=== PATIENT | female | born 1960 | race Hispanic/Latino ===

== ENCOUNTER 2018-10-03 23:26 | Emergency (ER) | payer BC, SELFPAY ==
--- OUTSIDE RECORDS SUMMARY | 2018-10-03 23:31 | XMS REPORT | Clinical Summary ---
:1960 Author Organization [facility] Address [address] [place] [address] Care Team Providers Name Role Phone Asked, No Pcp Primary Care Provider Unavailable Allergies Active Allergy Reactions Severity Noted Date Comments Penicillins 11/27/2017 Increases my blood pressure Medications Medication Sig Dispensed Refills Start Date End Date Status clindamycin TAKE ONE CAPSULE 0 11/15/2017 Active (CLEOCIN) 300 MG BY MOUTH 3 TIMES capsule A DAY FOR 10 DAYS doxycycline TAKE 1 TABLET BY 0 10/28/2017 Active (VIBRA-TABS) 100 MG MOUTH TWICE A DAY tablet TAKE WITH FOOD SYNTHROID 88 mcg Take 88 mcg by 3 11/23/2017 Active tablet mouth daily. amitriptyline Take 50 mg by 3 11/23/2017 Active (ELAVIL) 50 MG mouth daily. tablet ALPRAZolam (XANAX) Take 0.5 mg by 0 10/28/2017 Active 0.5 MG tablet mouth nightly as needed. baclofen (LIORESAL) TAKE 1 TABLET BY 1 10/04/2017 Active 10 MG tablet MOUTH EVERY 8 HOURS NEEDED FOR SPASMS glimepiride (AMARYL) Take 4 mg by 3 11/23/2017 Active 4 MG tablet mouth daily. metFORMIN XR TAKE 2 TABLET BY 3 11/23/2017 Active (GLUCOPHAGE-XR) 500 MOUTH TWICE A DAY mg 24 hr tablet lisinopril-hydrochlo Take 1 tablet by 3 11/23/2017 Active rothiazide mouth daily. (PRINZIDE,ZESTORETIC ) 20-25 mg per tablet hydromorPHONE TAKE 1 TABLET BY 0 11/05/2017 Active (DILAUDID) 8 MG MOUTH EVERY 4 tablet HOURS NEEDED FOR PAIN MAX5/DAY VITAMIN D2 50,000 TAKE BY MOUTH 1 4 09/20/2017 Active unit capsule CAPSULE ONCE A WEEK ONETOUCH ULTRA TEST USE 1 STRIP 2 09/21/2017 Active strip test strips DIRECTED ONCE A DAY ONETOUCH ULTRASOFT USE 1 LANCET TO 3 09/21/2017 Active lancets SKIN ONCE A DAY DIRECTED WITH GLUCOMETER atorvastatin Take 80 mg by 0 Active (LIPITOR) 80 MG mouth daily. tablet diazePAM (VALIUM) 5 Take 5 mg by 0 Active MG tablet mouth every 6 (six) hours as needed for anxiety. sitaGLIPtin Take 100 mg by 0 Active (JANUVIA) 100 MG mouth daily. tablet predniSONE Take 1 tablet (20 5 tablet 0 11/28/2017 12/03/2017 (DELTASONE) 20 mg mg total) by tablet mouth daily for 5 days. ibuprofen Take 1 tablet 30 tablet 0 11/28/2017 12/28/2017 (ADVIL,MOTRIN) 600 (600 mg total) by MG tablet mouth every 8 (eight) hours as needed for mild pain for up to 30 days. Active Problems Not on file Encounters Date Type Specialty Care Team Description 11/27/2017 - Emergency Emergency Medicine Maxime Sifuentes Tenosynovitis ( Primary Dx); 11/28/2017 MD Tavo Thrombocytopenia; Chronic hypertension; Dyslipidemia; Hypothyroidism, unspecified type; Cirrhosis of liver without ascites, unspecified hepatic cirrhosis type; Type 2 diabetes mellitus with other specified complication, without long-term current use of insulin; Tobacco abuse after 10/02/2017 Social History Tobacco Use Types Packs/Day Years Used Date Current Every Day Smoker 1 Alcohol Use Drinks/Week oz/Week Comments No Sex Assigned at Date Recorded Not on file Job Start Date Occupation Industry Not on file Not on file Not on file Travel History Travel Start Travel End No recent travel history available. Last Filed Vital Signs Vital Sign Reading Time Taken Blood Pressure 135/61 11/28/2017 12:45 AM CDT Pulse 68 11/28/2017 12:45 AM CDT Temperature 36.8 C (98.2 F) 11/28/2017 12:45 AM CDT Respiratory Rate 16 11/28/2017 12:45 AM CDT Oxygen Saturation 97% 11/28/2017 12:45 AM CDT Inhaled Oxygen Concentration - - Weight - - Height - - Body Mass Index - - Plan of Treatment Health Maintenance Due Date Last Done Comments DIABETIC RETINAL EYE EXAM 1960 DIABETIC FOOT EXAM 1968 URINE MICROALBUMIN 1968 CERVICAL CANCER SCREENING 11/14/1979 BREAST CANCER SCREENING 2008 COLON CANCER SCREENING 2008 SHINGLES VACCINES (#1) 2008 INFLUENZA VACCINE 02/16/2018 Procedures Procedure Name Priority Date/Time Associated Diagnosis Comments HC COMPLETE BLD STAT 11/28/2017 12:44 AM Results for this COUNT W/AUTO DIFF CDT procedure are in the results section. after 10/02/2017 Results CBC with platelet and differential (11/28/2017 12:44 AM CDT) WBC 8.33 4.50 - 11.00 k/uL [facility] DEPARTMENT OF PATHOLOGY AND GENOMIC MEDICINE RBC 4.28 4.20 - 5.50 m/uL [facility] DEPARTMENT OF PATHOLOGY AND GENOMIC MEDICINE HGB 13.8 12.0 - 16.0 g/dL [facility] DEPARTMENT OF PATHOLOGY AND GENOMIC MEDICINE HCT 40.1 37.0 - 47.0 % [facility] DEPARTMENT OF PATHOLOGY AND GENOMIC MEDICINE MCV 93.7 82.0 - 100.0 fL [facility] DEPARTMENT OF PATHOLOGY AND GENOMIC MEDICINE MCH 32.2 27.0 - 34.0 pg [facility] DEPARTMENT OF PATHOLOGY AND GENOMIC MEDICINE MCHC 34.4 31.0 - 37.0 g/dL [facility] DEPARTMENT OF PATHOLOGY AND GENOMIC MEDICINE RDW - SD 42.4 37.0 - 55.0 fL [facility] DEPARTMENT OF PATHOLOGY AND GENOMIC MEDICINE MPV 10.9 8.8 - 13.2 fL [facility] DEPARTMENT OF PATHOLOGY AND GENOMIC MEDICINE Platelet count 89 (L) 150 - 400 k/uL [facility] DEPARTMENT OF PATHOLOGY AND GENOMIC MEDICINE Nucleated RBC 0.00 /100 WBC [facility] DEPARTMENT OF PATHOLOGY AND GENOMIC MEDICINE Neutrophils 36.5 (L) 39.0 - 69.0 % [facility] DEPARTMENT OF PATHOLOGY AND GENOMIC MEDICINE Lymphocytes 55.5 (H) 25.0 - 45.0 % [facility] DEPARTMENT OF PATHOLOGY AND GENOMIC MEDICINE Monocytes 5.2 0.0 - 10.0 % [facility] DEPARTMENT OF PATHOLOGY AND GENOMIC MEDICINE Eosinophils 2.3 0.0 - 5.0 % [facility] DEPARTMENT OF PATHOLOGY AND GENOMIC MEDICINE Basophils 0.4 0.0 - 1.0 % [facility] DEPARTMENT OF PATHOLOGY AND GENOMIC MEDICINE Immature granulocytes 0.1Comment: 0.0 - 1.0 % [facility] DEPARTMENT OF "Immature PATHOLOGY AND GENOMIC granulocytes" MEDICINE (promyelocytes, myelocytes, metamyelocytes) Specimen Blood Performing Organization Address City/State/Zipcode Phone Number [facility] DEPARTMENT OF PATHOLOGY AND [address] [place] [address] GENOMIC MEDICINE after 10/02/2017 Insurance Payer Benefit Plan / Group Subscriber ID Type Phone Address [facility] xxxxxxxxxxxx PPO Advance Directives Patient has advance care planning documents on file. For more information, please contact:Favian Soto[address] [place] [address]
--- OUTSIDE RECORDS SUMMARY | 2018-10-03 23:32 | XMS REPORT | Continuity of Care Document ---
:1960 Author Organization Interface Problems Problem Status Onset Classification Date Comments Source Date Reported LUMBAR RADICULOPATHY Active [address] [id number] Active [facility] [place] HISTORY OF ARTHRITIS Active Condition [facility] 015 5 [facility] HISTORY OF CHRONIC Active Condition [facility] SINUSITIS 015 5 Neuro HISTORY OF CIRRHOSIS Active Condition [facility] 015 5 [facility] HISTORY OF DEPRESSION Active Condition [facility] 015 5 [facility] HISTORY OF DEMENTIA Active Condition [facility] 015 5 Neuro HISTORY OF TYPE II Active Condition [facility] DIABETES MELLITUS 015 5 Neuro HISTORY OF Active Condition [facility] HYPERTENSION 015 5 Neuro HISTORY OF Active Condition [facility] HYPERTHYROIDISM 015 5 Neuro HISTORY OF MIGRAINE Active Condition [facility] 015 5 Neuro HISTORY OF PANIC Active Condition [facility] DISORDER 015 5 [facility] LOW BACK PAIN Active Condition [facility] 015 5 [facility] LUMBAR HNP Active Condition [facility] 015 5 [facility] LUMBAR STENOSIS Active Condition [facility] 015 5 [facility] LUMBAR RADICULOPATHY Active Condition [facility] 015 5 [facility] LUMBAR 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 Lumbar Active Problem Data [facility] radiculopathy<sup>4</s 015 5 migrated Medical up> from [facility] on 03/12/15. Spinal stenosis of Active Problem Data [facility] lumbar 015 5 migrated Medical region<sup>5</sup> from [facility] on 03/12/15. Calcaneal Active Problem LEFT [facility] spur<sup>1</sup> [address] [place] [address],[facility] Depression Active Problem [address],[facility] Disorder of lumbar Active Problem HERNIATED [facility] disc<sup>2</sup> [address] [place] [address],[facility] DM - Diabetes mellitus Active Problem [address],[facility] Fatty liver Active Problem [address],[facility] Fibromyalgia Active Problem [address],[facility] Hypercholesterolemia Active Problem [address],[facility] Hypertension Active Problem [address],[facility] Hypothyroidism Active Problem [address],[facility] Osteoarthritis Active Problem [address],[facility] Travel Resolved Problem HAS NOT [facility] abroad<sup>6</sup> 5 TRAVELLED Medical OUTSIDE OF [facility] IN THE LAST 30 DAYS Travel Resolved Problem 3HAS NOT abroad<sup>3</sup> 5 TRAVELLED [facility] OUTSIDE OF [facility] IN THE LAST 30 DAYS LUMBAR DISC Active DISPLACEMENT [facility] Medications Medication Details Route Status Patient Ordering Order Source Instructions Provider Date multivitamin 1 tab, Route: No Longer PO, Dosing Active 2014 [facility] Weight 70.909, kg, Daily, Start date: 01/22/15 9:00:00, Duration: 30 day, Stop date: 02/20/15 9:00:00 glimepiride 4 mg, 2 tab, Inactive Route: PO, 2014 [facility] Drug form: TAB, Breakfast, Dosing Weight 70.909, kg, Start date: 01/22/15 8:00:00, Duration: 30 day, Stop date: 02/20/15 8:00:00Notes: (Same as: Amaryl) heparin 5,000 unit, 1 Inactive mL, Route: 2014 [facility] SUB-Q, Drug form: INJ, Q12H, Dosing Weight 70.909, kg, Start date: 01/22/15 6:00:00, Duration: 30 day, Stop date: 02/20/15 18:00:00Notes: porcine heparin Insulin, Aspart, 2 unit, 0.02 No Longer Human mL, Route: Active 2014 [facility] SUB-Q, Drug form: SOLN, TID-Before Meals, Dosing Weight 70.909, kg, PRN Blood Glucose Results, Start date: 01/21/15 23:21:00, Duration: 30 day, Stop date: 02/20/15 23:20:00Notes: Roll in palms of hands gently; Do not shake vigorously. (Same as: NovoLOG) "single patient use only" Stable for 28 days at room temperature. Expires in days from Date Dextrose 50% 25 gm, 50 mL, No Longer Syringe Route: IVP, Active 2014 [facility] Drug Form: INJ, Dosing Weight 70.909, kg, PRN, PRN Blood Glucose Results, Start date: 01/21/15 23:21:00, Duration: 30 day, Stop date: 02/20/15 23:20:00 Glucagon 1 mg, Route: No Longer IM, Drug form: Active 2014 [facility] PDR/INJ, PRN, Dosing Weight 70.909, kg, PRN Blood Glucose Results, Start date: 01/21/15 23:21:00, Duration: 30 day, Stop date: 02/20/15 23:20:00 Glucagon 1 mg, Route: Inactive IM, Drug form: 2014 [facility] PDR/INJ, PRN, Dosing Weight 70.909, kg, PRN Blood Glucose Results, Start date: 01/21/15 23:17:00, Duration: 30 day, Stop date: 02/20/15 23:16:00 Dextrose 50% 12.5 gm, 25 Inactive Syringe mL, Route: 2014 [facility] IVP, Drug Form: INJ, Dosing Weight 70.909, kg, PRN, PRN Blood Glucose Results, Start date: 01/21/15 23:17:00, Duration: 30 day, Stop date: 02/20/15 23:16:00 Insulin, Aspart, 4 unit, 0.04 No Longer Human mL, Route: Active 2014 [facility] SUB-Q, Drug form: SOLN, Bedtime, Dosing Weight 70.909, kg, PRN Blood Glucose Results, Start date: 01/21/15 23:17:00, Duration: 30 day, Stop date: 02/20/15 23:16:00Notes: Roll in palms of hands gently; Do not shake vigorously. (Same as: NovoLOG) "single patient use only" Stable for 28 days at room temperature. Expires in days from Date Amitriptyline 25 mg, 1 tab, No Longer Route: PO, Active 2014 [facility] Drug form: TAB, Bedtime, Dosing Weight 70.909, kg, Start date: 01/21/15 21:00:00, Duration: 30 day, Stop date: 02/19/15 21:00:00Notes: (Same as: Elavil) atorvastatin 80 mg, 2 tab, No Longer Route: PO, Active 2014 [facility] Drug form: TAB, Bedtime, Dosing Weight 70.909, kg, Start date: 01/21/15 21:00:00, Duration: 30 day, Stop date: 02/19/15 21:00:00Notes: (Same as: Lipitor) Metformin 1,000 mg, 2 No Longer hydrochloride 500 tab, Route: Active 2014 [place] [facility] Oral Tablet PO, Drug form: TAB, BID-Meals, Dosing Weight 70.909, kg, Start date: 01/21/15 17:00:00, Duration: 30 day, Stop date: 02/20/15 8:00:00Notes: (Same as: Glucophage) Take with meal Docusate 100 mg, 1 cap, No Longer Route: PO, Active 2014 [facility] Drug form: CAP, BID, Dosing Weight 70.909, kg, Start date: 01/21/15 17:00:00, Duration: 30 day, Stop date: 02/20/15 9:00:00Notes: (Same as: Colace) (Do Not Crush) pantoprazole 40 mg, 1 tab, No Longer Route: PO, Active 2014 [facility] Drug form: ECTAB, Before Dinner, Dosing Weight 70.909, kg, Start date: 01/21/15 16:30:00, Duration: 30 day, Stop date: 02/19/15 16:30:00Notes: Tablet should not be chewed or crushed. (Same as: Protonix) ceFAZolin (SCIP) + 1 gm, Route: No Longer Sodium Chloride IVPB, Q8H, Active 2014 [facility] 0.9% IV 100 mL Dosing Weight 70.909, kg, Start date: 01/21/15 16:00:00, Duration: 2 doses or times, Stop date: 01/22/15 0:00:00Notes: (Same As: Molly Crocker) MEDICATION WASTE Product Size: 1000 mg Product Wasted: ___ mg Januvia 100 mg, 1 tab, No Longer Route: PO, 2014 [facility] Drug form: TAB, Daily, Dosing Weight 70.909, kg, Start date: 01/21/15 12:00:00, Duration: 30 day, Stop date: 02/20/15 9:00:00Notes: (Same as: Januvia) potassium chloride 10 mEq, 1 tab, No Longer Route: PO, Active 2014 [facility] Drug form: ERTAB, Daily, Dosing Weight 70.909, kg, Start date: 01/21/15 12:00:00, Duration: 30 day, Stop date: 02/20/15 9:00:00Notes: (Same as: K-Dur 10) "Do Not Crush" With food and full glass of water Hydrochlorothiazid 2 tab, Route: No Longer e 25 MG / PO, Drug Form: Active 2014 [facility] Lisinopril 20 MG TAB, Dosing Oral Tablet Weight 70.909, kg, Daily, Start date: 01/21/15 12:00:00, Duration: 30 day, Stop date: 02/20/15 9:00:00Notes: Non-formulary drug. (lisinopril-hy drochlorothiaz lori 10-12.5 mg TAB) (Same as: Prinzide, Zestoretic) multivitamin with 1 tab, Route: No Longer minerals PO, Drug Form: Active 2014 [facility] TAB, Daily, Start date: 01/21/15 12:00:00, Duration: 30 day, Stop date: 02/20/15 9:00:00Notes: Give with food. (Same As: Stress 600 with Zinc) Zofran 4 mg, 2 mL, No Longer Route: IVP, Active 2014 [facility] Drug form: INJ, Q4H, Dosing Weight 70.909, kg, PRN Other -See Comment, If N/V refractory to first dose of Zofran IVP, patient may receive an additional 4mg IVP dose of Zofran per Dr. Gurrola, Start date: 01/21/15 11:27:00, Durati...Notes : (Same as: Zofran) MEDICATION WASTE Product Size: 4 mg Product Wasted: ___ mg Synthroid 88 microgram, No Longer 1 tab, Route: Active 2014 [facility] PO, Drug form: TAB, Daily, Dosing Weight 70.909, kg, Start date: 01/21/15 11:00:00, Duration: 30 day, Stop date: 02/20/15 9:00:00Notes: Take 1 hour before or 2 hours after meal; Enteral feeds may interefere with the absorption of this medication. (Same as:Synthroid) Insulin, Aspart, 1 unit, 0.01 Inactive Human mL, Route: 2014 [facility] SUB-Q, Drug form: SOLN, TID-Before Meals, Dosing Weight 70.909, kg, PRN Blood Glucose Results, Start date: 01/21/15 10:54:00, Duration: 30 day, Stop date: 02/20/15 10:53:00Notes: Roll in palms of hands gently; Do not shake vigorously. (Same as: NovoLOG) "single patient use only" Stable for 28 days at room temperature. Expires in days from Date Glucagon 1 mg, Route: Inactive IM, Drug form: 2014 [facility] PDR/INJ, PRN, Dosing Weight 70.909, kg, PRN Blood Glucose Results, Start date: 01/21/15 10:54:00, Duration: 30 day, Stop date: 02/20/15 10:53:00 Dextrose 50% 12.5 gm, 25 Inactive MH Syringe mL, Route: 2014 [facility] IVP, Drug Form: INJ, Dosing Weight 70.909, kg, PRN, PRN Blood Glucose Results, Start date: 01/21/15 10:54:00, Duration: 30 day, Stop date: 02/20/15 10:53:00 Docusate Sodium 100 mg=1 cap, Active MH 100 MG Oral PO, BID, # 90 2014 [facility] Capsule [Colace] cap, 1 Refill(s) Diazepam 5 MG Oral 1-2, PO, Q4H, Active Tablet [Valium] PRN as needed 2014 [facility] for muscle spasms, # 30 tab, 4 Refill(s) tramadol 50 mg=1 tab, Active hydrochloride 50 PO, Q6H, PRN 2014 [facility] MG Oral Tablet as needed for [Ultram] pain, # 30 tab, 0 Refill(s) Dilaudid 0.5 mg, 0.5 Inactive MH mL, Route: IV, 2014 [facility] Drug form: INJ, Q5Min, Dosing Weight 70.909, kg, PRN Pain Score 7-10, Start date: 01/21/15 10:47:00, Duration: 4 doses or times, Stop date: 01/21/15 20:00:00Notes: Same as: Dilaudid Phenergan 12.5 mg, 0.5 Inactive MH mL, Route: IM, 2014 [facility] Drug form: INJ, ONCE, Dosing Weight 70.909, kg, PRN Nausea, Start date: 01/21/15 10:47:00Notes: Do not give IV push. (Same as: Phenergan) Meperidine 12.5 mg, 0.5 Inactive 01/21/ MH mL, Route: 2014 [facility] IVP, Drug form: INJ, Q5Min, Dosing Weight 70.909, kg, PRN Pain Score 4-6, Start date: 01/21/15 10:47:00, Duration: 4 doses or times, Stop date: 01/21/15 20:00:00Notes: (Same as: Demerol) "Use Precaution in Elderly, Seizure disorders, and Renal impairment" Acetaminophen 1,000 mg, 100 Inactive mL, Route: 2014 [facility] IVPB, Drug form: INJ, ONCE, Dosing Weight 70.909, kg, PRN Pain Score 1-3, Start date: 01/21/15 10:47:00, Duration: 1 doses or times, Stop date: Limited # of timesNotes: Infuse over 15 minutes Do not exceed 4gm/day of acetaminophen MEDICATION WASTE Product Size: 1000 mg Product Wasted: ___ mg Metoprolol 1 mg, 1 mL, Inactive Route: IVP2014 [facility] Drug form: INJ, Q5Min, Dosing Weight 70.909, kg, PRN Other -See Comment, Start date: 01/21/15 10:47:00, Duration: 5 doses or times, Stop date: 01/21/15 20:00:00Notes: (Same as: Lopressor) Push over 2 minutes Labetalol 10 mg, 2 mL, Inactive Route: IVP2014 [facility] Drug form: INJ, Q5Min, Dosing Weight 70.909, kg, PRN Elevated BP, Start date: 01/21/15 10:47:00, Duration: 5 doses or times, Stop date: 01/21/15 20:00:00Notes: (Same as: Normodyne, Trandate) Push over 2 minutes Give bolus over 2-3 minutes. Ketorolac 30 mg, 1 mL, Inactive Route: IVP2014 [facility] Drug form: INJ, ONCE, Dosing Weight 70.909, kg, Start date: 01/21/15 10:47:00, Duration: 1 doses or times, Stop date: 01/21/15 10:47:00Notes: (Same as:Toradol) IV bolus must be given >15 seconds. Give IM administration slowly and deeply into the muscle. Not for use > 4 days MEDICATION WASTE Product Size: 30 mg Product Wasted: ___ mg Hydralazine 10 mg, 0.5 mL, Inactive Route: IVP2014 [facility] Drug form: INJ, Q20Min, Dosing Weight 70.909, kg, PRN Elevated BP, Start date: 01/21/15 10:47:00, Duration: 2 doses or times, Stop date: 01/21/15 20:00:00Notes: (Same as: Apresoline) Push over 5 minutes Ondansetron 4 mg, 2 mL, Inactive Route: IVP2014 [facility] Drug form: INJ, ONCE, Dosing Weight 70.909, kg, PRN Nausea & Vomiting, Start date: 01/21/15 10:47:00Notes: (Same as: Meliton) MEDICATION WASTE Product Size: 4 mg Product Wasted: ___ mg Morphine 2 mg, 1 mL, Inactive Route: IVP2014 [facility] Drug form: INJ, Q5Min, Dosing Weight 70.909, kg, PRN Pain Score 4-6, Start date: 01/21/15 10:47:00, Duration: 5 doses or times, Stop date: Limited # of timesNotes: (Same as:MORPhine Sulfate) Hydromorphone 0.5 mg, 0.5 Inactive mL, Route: 2014 [facility] IVP, Drug form: INJ, Q5Min, Dosing Weight 70.909, kg, PRN Pain Score 7-10, Start date: 01/21/15 10:47:00, Duration: 4 doses or times, Stop date: 01/21/15 20:00:00Notes: Same as: Dilaudid Naloxone 0.04 mg, 0.1 Inactive mL, Route: 2014 [facility] IVP, Drug form: INJ, Q2MIN, Dosing Weight 70.909, kg, PRN Narcotic Reversal, Start date: 01/21/15 10:47:00, Duration: 8 doses or times, Stop date: 01/21/15 20:00:00Notes: Same as Narcan Flumazenil 0.2 mg, 2 mL, Inactive Route: IVP2014 [facility] Drug form: INJ, PRN, Dosing Weight 70.909, kg, PRN Benzodiazepine Reversal, Initial dose, Start date: 01/21/15 10:47:00, Stop date: 01/21/15 20:00:00Notes: (Same as: Romazicon) Diazepam 10 mg, 2 tab, No Longer Route: PO, Active 2014 [facility] Drug form: TAB, Q4H, Dosing Weight 70.909, kg, PRN Other -See Comment, Start date: 01/21/15 10:38:00, Duration: 7 day, Stop date: 01/28/15 10:37:00, severe muscle spasmsNotes: (Same as: Valium) Acetaminophen 650 mg, 2 tab, No Longer Route: PO, Active 2014 [facility] Drug form: TAB, Q4H, Dosing Weight 70.909, kg, PRN Pain 1-3/Temp > 100.4 F, Start date: 01/21/15 10:38:00, Duration: 30 day, Stop date: 02/20/15 10:37:00Notes: Do not exceed 4 gm/day. (Same as: Tylenol) Hydromorphone 4 mg, 2 tab, No Longer Route: PO, Active 2014 [facility] Drug form: TAB, Q4H, Dosing Weight 70.909, kg, PRN Other -See Comment, Start date: 01/21/15 10:38:00, Duration: 3 day, Stop date: 01/24/15 10:37:00Notes: (Same as: Dilaudid) Reglan 10 mg, 1 tab, No Longer Route: PO, Active 2014 [facility] Drug form: TAB, BID, Dosing Weight 70.909, kg, PRN Other -See Comment, Start date: 01/21/15 10:38:00, Duration: 30 day, Stop date: 02/20/15 10:37:00, nausea or vomiting if patient refractory to ondansetronNot es: (Same as: Reglan) Take 30 min before meals Zofran 4 mg, 2 mL, No Longer Route: IVP, Active 2014 [facility] Drug form: INJ, Q4H, Dosing Weight 70.909, kg, PRN Nausea, Start date: 01/21/15 10:38:00, Duration: 30 day, Stop date: 02/20/15 10:37:00Notes: (Same as: Zofran) MEDICATION WASTE Product Size: 4 mg Product Wasted: ___ mg Phenergan 25 mg, 50 mL, No Longer Route: IVP Active 2014 [facility], Drug form: SOLN, Q4H, Dosing Weight 70.909, kg, PRN Nausea & Vomiting, If N/V refractory to Zofran and Reglan,patient may receive Phenergan IVP per Dr. Gurrola, Start date: 01/21/15 10:38:00, Duration: 30 day, Stop date... LR IV 500 mL 500 mL, Rate: No Longer 125 ml/hr, Active 2014 [facility] Infuse over: 4 hr, Route: IV, Dosing Weight 70.909 kg, Total Volume: 500, Start date: 01/21/15 10:38:00, Duration: 30 day, Stop date: 02/20/15 10:37:00 Sodium Chloride 250 mL, Rate: Inactive 0.154 MEQ/ML 25 ml/hr, 2014 [facility] Injectable Infuse over: Solution 10 hr, Route: IV, Dosing Weight 70.909 kg, Total Volume: 250, Start date: 01/21/15 7:50:00, Duration: 1 doses or times, Stop date: 01/21/15 17:49:00 naloxegol 25 MG 25 mg=1 tab, Active Oral Tablet PO, QAM, 0 2014 [facility] [Movantik] Refill(s) Lidocaine 0.1 mL, Route: Inactive Hydrochloride 10 INTRADERM, 2014 [facility] MG/ML Injectable Drug form: Solution INJ, PRE OP, [Xylocaine] Dosing Weight 70.909, kg, Start date: 01/21/15 6:00:00, Duration: 30 day, Stop date: 02/20/15 5:59:00Notes: Preservative free. (Same as: Xylocaine MPF) Lactated Ringers 1,000 mL, No Longer IV 1,000 mL Rate: 100 Active 2014 [facility] ml/hr, Infuse over: 10 hr, Route: IV, Dosing Weight 70.909 kg, Total Volume: 1,000, Start date: 01/21/15 5:31:00, Duration: 30 day, Stop date: 02/20/15 5:30:00 ceFAZolin 2 gm, 50 mL, Inactive Route: IVPB, 2014 [facility] Drug form: INJ, PRE OP, Start date: 01/21/15 5:00:00, Duration: 1 doses or times ULTRAM 50 MG TABS 1 tablet every Active [facility] 6 hours as 2014 [facility] needed for severe pain VALIUM 5 MG TABS one to two Active [facility] tabs PO 2014 [facility] Q4-6hrs prn muscle spasms COLACE 100 MG CAPS Take one Active cher capsule by 2014 [facility] mouth twice a day potassium chloride 10 mEq, PO, Active Daily, 0 2014 [facility] Refill(s) Fish Oil 1,000 mg, PO, No Longer 2 X WEEK, 0 Active 2014 [facility] Refill(s)Speci al Instructions: 2 X WEEK multivitamin 1 tab, PO, Active Daily, 0 2014 [facility] Refill(s) atorvastatin 80 mg 80 mg=1 tab, Active oral tablet PO, Daily, # 2014 [facility] 90 tab, 3 Refill(s) Metformin 1,000 mg=2 Active hydrochloride 500 tab, PO, BID, 2014 [facility] Oral Tablet 0 Refill(s) glimepiride 4 mg 4 mg=1 tab, Active oral tablet PO, Breakfast, 2014 [facility] # 30 tab, 0 Refill(s) sitagliptin 100 MG 100 mg=1 tab, Active Oral Tablet PO, Daily, # 2014 [facility] [Januvia] 30 tab, 0 Refill(s) Vitamin D3 5000 5,000 Active intl units oral IntlUnit=1 2014 [facility] tablet tab, PO, 2 X WEEK, 0 Refill(s)Speci al Instructions: 2 X WEEK Hydrochlorothiazid 1 tab, PO, Active e 25 MG / Daily, # 30 2014 [facility] Lisinopril 20 MG tab, 0 Oral Tablet Refill(s) amitriptyline 25 25 mg=1 tab, Active [facility] mg oral tablet PO, Bedtime, # 2015 [facility] 30 tab, 1 Refill(s) hydromorphone 8 mg 8 mg=1 tab, Active 01/15/ oral tablet PO, Q4H, 0 2014 Refill(s) Levothyroxine 88 microgram=1 Active 01/15/ Sodium 0.088 MG tab, PO, 2014 [facility] Tablet Daily, # 30 [Synthroid] tab, 0 Refill(s) ALPRAZOLam 0.5 mg 0.5 mg=1 tab, No Longer 01/15/ oral tablet, PO, Bedtime, 0 Active 2014 disintegrating Refill(s) ALPRAZOLAM ER 0.5 Active [facility] MG [id number] 2014 [facility] SYNTHROID 100 MCG Active [facility] TABS 2014 [facility] HY[facility]OMORPHONE HCL [facility] TABS 2014 [facility] AMITRIPTYLINE [facility] TABS 2014 [facility] LISINOPRIL-HYDROCH Active [facility] LOROTHIAZIDE 20-25 2014 [facility] TABS VITAMIN D3 5000 Active [facility] UNIT TABS 2014 [facility] JANUVIA 100 MG Active [facility] TABS 2015 [facility]IME[facility]IRIDE 4 [facility]S [facility] METFORMIN HCL ER Active 500 MG [id number] 2014 [facility] ATORVASTATIN Active [facility] CALCIUM 80 MG TABS 2015 [facility] AMITRIPTYLINE HCL [facility] TABS 2014 [facility] LISINOPRIL-HYDROCH Active [facility] LOROTHIAZIDE 20-25 2014 [facility] MG TABS JANUVIA 100 [facility] 4 [facility] METFORMIN HCL ER Active [facility] 500 MG [id number] 2014 [facility] Allergies, Adverse Reactions, Alerts Substance Category Reaction Severity Reaction Status Date Comments Source type Reported PREDNISONE Drug PREDNISONE [facility] allergy 5 Neuro predniSONE< Assertion Drug Active Data [place] sup>1</sup> allergy 5 migrated Medical from [facility] on 03/11/15. Originally documented as PREDNISONE. predniSONE Assertion Drug Active allergy [place] Immunizations Immunization Date Given Site Status Last Updated Comments Source Results Order Name Results Value Reference Date Interpretation Comments Source Range CHEM PANEL eGFR 83 05/01 Result Comment: The eGFR is calculated using the CKD-EPI formula. In most young, healthy individuals the eGFR will be >90 mL/ min/1.73m2. The eGFR declines with age. An eGFR of 60-89 may be normal in [facility] mL/min/1. some populations, particularly the elderly, for whom the CKD-EPI formula has not been extensively validated. Use of the eGFR is not recommended in the following populations: [place] [address] [facility] Individuals with unstable creatinine concentrations, including patients and those with serious co-morbid conditions. Patients with extremes in muscle mass or diet. The data above are obtained from the National Kidney Disease Education Program (NKDEP) which additionally recommends that when the eGFR is used in patients with extremes of body mass index for purposes of drug dosing, the eGFR should be multiplied by the estimated BMI. CHEM PANEL POC 0.8 mg/dL 0.5 - 1.4 05/01 [facility] Creatinine /2014 [facility] Spine Spine lumbar EXAM: MRI LUMBAR SPINE WITHOUT AND WITH CONTRAST 05/01 - [facility] lumbar w/wo /2014 - [facility] w/ contrast MRI This report was dictated by a Dip Painter/ Fellow. I have personally reviewed the images as Center contrast well as the Resident's interpretation and agree with the findings. MRI DATE: May 01, 2015 06:54:00 PM Read by: Jose R Reynaga MD Resident: Jose R Reynaga MD Dictated Date/time: 05/02/15 09:03 Electronically Signed by: Martínez Lund MD 05/02/15 21:04 FINAL REPORT INDICATION: Lumbar radiculopathy COMPARISON: None available TECHNIQUE: Multiplanar noncontrast images are obtained. Contrast enhanced images are obtained after delivery of 13 mL of multihance gadolinium intravenous contrast. DISCUSSION: Normal lumbar segmentation is assumed with the lowest fully formed intervertebral disc space labeled as L5-S1 for the purpose of this examination. The conus medullaris terminates at the L1-L2 level. It has a normal contour and normal signal characteristics. No intradural pathology is identified. Alignment is normal. Vertebral height and signal characteristics are unremarkable. Disc spaces, spinal canal and neural foramina are as follows: T12-L1: Normal disc signal with preservation of disc height. No evidence of spinal canal stenosis. No significant facet hypertrophy. No significant neural foramina stenosis. L1-L2: Normal disc signal with preservation of disc height. No evidence of spinal canal stenosis. No significant facet hypertrophy. No significant neural foramina stenosis. L2-L3: Normal disc signal with minimal loss of disc height. There is mild diffuse annular bulge. No evidence of spinal canal stenosis. No significant facet hypertrophy. No significant neural foramina stenosis. L3-L4: Normal disc signal with minimal loss of disc height. Mild diffuse annular bulge is noted. No evidence of spinal canal stenosis. Ligamentum flavum and facet hypertrophy are present on the right wh ich encroach slightly upon the right neural foramen. L4-L5: Degenerative disc desiccation with minimal loss of disc height. Mild diffuse annular bulge is noted. No evidence of spinal canal stenosis. Ligamentum flavum and facet hypertrophy are present bila terally which encroach slightly upon the neural foramina. L5-S1: There is a 2 mm retrolisthesis of L5 on S1. There is a leftward asymmetric diffuse annular bulge encroaching upon the left neural foraminal and far lateral zone and encroachment upon the right ne ural foramen. Degenerative disc desiccation with significant loss of disc height. No evidence of spinal canal stenosis. Ligamentum flavum and facet hypertrophy are present on the right which encroach slightly upon the right neural foramen. T2 hyperintense postsurgical change related to a left L5 laminectomy and L5 left anterior anterior endplate edema are also noted. The incidental note of a right renal cyst is made. IMPRESSION: 1. Mild grade 1 retrolisthesis of L5 on S1 with leftward asymmetric diffuse annular bulge with resultant stenosis of the left neural foraminal and far lateral zones and mild compression of the left L5 nerve root. 2. Mild degenerative disc disease and facet arthropathy in the mid to upper lumbar spine without neural foraminal or spinal canal stenosis. 3. L5 left partial laminectomy postsurgical change. BLOOD BANK Platelet Product available 01/16 RESULTS product [facility] (01/16/15 8:58 AM) BLOOD BANK Antibody Negative 01/15 RESULTS Scrn [facility] (01/15/15 3:22 PM) BLOOD BANK ABO/Rh A POS 01/15 RESULTS /2014 ELECTROLYT AGAP 9.7 meq/L 10.0 - 01/15 ES 20.0 [facility] ELECTROLYT eGFR 83 01/15 1Result Comment: The eGFR is calculated using the CKD-EPI formula. In most young, healthy individuals the eGFR will be >90 mL/ min/1.73m2. The eGFR declines with age. An eGFR of 60-89 may be normal in [facility] mL/min/1. some populations, particularly the elderly, for whom the CKD-EPI formula has not been extensively validated. Use of the eGFR is not recommended in the following populations: [facility] 3m2 Individuals with unstable creatinine concentrations, including patients and those with serious co-morbid conditions. Patients with extremes in muscle mass or diet. The data above are obtained from the National Kidney Disease Education Program (NKDEP) which additionally recommends that when the eGFR is used in patients with extremes of body mass index for purposes of drug dosing, the eGFR should be multiplied by the estimated BMI. ELECTROLYT Chloride Lvl 105 meq/L 95 - 109 01/15 [facility] ELECTROLYT Potassium 3.7 meq/L 3.5 - 5.1 01/15 [facility] Lvl [facility] ELECTROLYT Sodium Lvl 142 meq/L 135 - 145 01/15 [facility] ELECTROLYT Creatinine 0.8 mg/dL 0.5 - 1.4 01/15 [facility] Lvl [facility] ELECTROLYT Glucose Lvl 172 mg/dL 70 - 99 01/15 2Interpretive Data: Adult reference range values reflect the clinical guidelines of the [place] [employer]. [facility] ELECTROLYT BUN 9 mg/dL 7 - 22 01/15 [facility] ELECTROLYT Calcium Lvl 9.0 mg/dL 8.5 - 10.5 01/15 [facility] ELECTROLYT CO2 31 meq/L 24 - 32 01/15 [facility] HEMATOLOGY INR 1.06 0.85 - 01/15 3Interpretive Data: RECOMMENDED RANGES FOR PROTIME INR: . 2.0-3.0 for most medical and surgical thromboembolic states. [facility] 2.5-3.5 for artificial heart valves and recurrent embolism. INR SHOULD BE USED ONLY FOR PATIENTS ON STABLE ANTICOAGULANT THERAPY. HEMATOLOGY PT 13.8 s 12.0 - 01/15 14.7 [facility] HEMATOLOGY PTT 32.8 s 22.9 - 01/15 4Interpretive 35.8 /2014 Data: Heparin [facility] Therapeutic Range: 57 - 92 Seconds HEMATOLOGY MPV 9.7 fL 7.4 - 10.4 01/15 /2014 [facility] HEMATOLOGY Platelet 112 K/CMM 133 - 450 01/15 /2014 [facility] HEMATOLOGY MCHC 33.4 g/dL 32.0 - 01/15 MH 36.0 /2014 [facility] HEMATOLOGY RDW 13.1 % 11.5 - 01/15 MH 14.5 /2014 [facility] HEMATOLOGY MCH 31.7 pg 27.0 - 01/15 MH 31.0 /2014 [facility] HEMATOLOGY RBC 4.33 M/CMM 4.20 - 01/15 MH 5.40 /2014 [facility] HEMATOLOGY WBC 10.0 K/CMM 3.7 - 10.4 01/15 [facility] HEMATOLOGY Hgb 13.7 g/dL 12.0 - 01/15 MH 16.0 /2014 [facility] HEMATOLOGY Hct 41.2 % 36.0 - 01/15 MH 48.0 /2014 [facility] HEMATOLOGY MCV 95.1 fL 80.0 - 01/15 MH 98.0 /2014 [facility] HEMATOLOGY Monocytes 4.7 % 2.0 - 12.0 01/15 [facility] HEMATOLOGY Eosinophils 2.9 % 0.0 - 4.0 01/15 /2014 [facility] HEMATOLOGY Lymphocytes 57.6 % 20.0 - 01/15 MH 40.0 /2014 [facility] HEMATOLOGY Monocytes # 0.5 K/CMM 0.0 - 0.8 01/15 [facility] HEMATOLOGY Eosinophils 0.3 K/CMM 0.0 - 0.5 01/15 MH # /2014 [facility] HEMATOLOGY Segs 34.6 % 45.0 - 01/15 MH 75.0 /2014 [facility] HEMATOLOGY RBC Morph Normal 01/15 [facility] (01/15/15 3:22 PM) HEMATOLOGY Plt Morph Normal 01/15 [facility] (01/15/15 3:22 PM) HEMATOLOGY Lymphocytes 5.8 K/CMM 1.0 - 5.5 01/15 MH # /2014 [facility] HEMATOLOGY Basophils 0.2 % 0.0 - 1.0 01/15 [facility] HEMATOLOGY Segs-Bands # 3.5 K/CMM 1.5 - 8.1 01/15 [facility] URINE AND UA Sq Epi Occasional Few /LPF 01/15 MH STOOL /LPF /2014 [facility] URINE AND UA RBC 0-2 /HPF 0 - 2 01/15 [facility] URINE AND UA WBC 0-2 /HPF None Seen 01/15 [facility] /HPF [facility] URINE AND UA 4.0 EU/dL 0.1 - 1.0 01/15 [facility] Urobilinogen /2014 [place] URINE AND UA Leuk Est Negative Negative 01/15 STOOL [facility] (01/15/15 3:22 PM) URINE AND Micro? Performed 01/15 STOOL [facility] (01/15/15 3:22 PM) URINE AND UA Blood Small Negative 01/15 STOOL [facility] *ABN* (01/15/15 3:22 PM) URINE AND UA Nitrite Negative Negative 01/15 STOOL [facility] (01/15/15 3:22 PM) URINE AND UA Color Yellow Yellow 01/15 [facility] *NA* (01/15/15 3:22 PM) URINE AND UA pH 6.0 5.0 - 8.0 01/15 [facility] URINE AND UA Spec Grav 1.025 <=1.030 01/15 [facility] URINE AND UA Turbidity Clear Clear 01/15 STOOL [facility] (01/15/15 3:22 PM) URINE AND UA Glucose >=1000 Negative 01/15 [facility] mg/dL mg/dL [facility] URINE AND UA Protein Negative Negative 01/15 [facility] (01/15/15 3:22 PM) URINE AND UA Bili Negative Negative 01/15 [facility] *NA* (01/15/15 3:22 PM) URINE AND UA Ketones Negative Negative 01/15 [facility] *NA* (01/15/15 3:22 PM) Vital Signs Vital Sign Value Date Comments Source Weight 153 02/26/2015 [facility] Height 65 02/26/2015 [facility] Temperature Oral (F) 97.9 F 02/26/2015 [facility] Heart Rate 88 02/26/2015 [facility] Systolic (mm Hg) 115 02/26/2015 [facility] Diastolic (mm Hg) 87 02/26/2015 [facility] Weight 157 02/05/2015 [facility] Height 65.50 02/05/2015 [facility] Temperature Oral (F) 98.9 F 02/05/2015 [facility] Heart Rate 68 02/05/2015 [facility] Systolic (mm Hg) 121 02/05/2015 [facility] Diastolic (mm Hg) 68 02/05/2015 [facility] Systolic (mm Hg) 109 01/22/2015 [facility] Diastolic (mm Hg) 55 01/22/2015 [facility] Heart Rate 76 01/22/2015 [facility] Respitory Rate 17 01/22/2015 [facility] Temperature Oral (F) 98.0 F 01/22/2015 [facility] Systolic (mm Hg) 123 01/22/2015 [facility] Diastolic (mm Hg) 67 01/22/2015 [facility] Respitory Rate 18 01/22/2015 [facility] Heart Rate 65 01/22/2015 [facility] Temperature Oral (F) 97.7 F 01/22/2015 [facility] Respitory Rate 15 01/22/2015 [facility] Systolic (mm Hg) 114 01/22/2015 [facility] Diastolic (mm Hg) 63 01/22/2015 [facility] Heart Rate 67 01/22/2015 [facility] Temperature Oral (F) 98.4 F 01/22/2015 [facility] BMI Calculated 25.23 01/15/2015 [facility] Weight 70.909 01/15/2015 [facility] Height 167.64 cm 01/15/2015 [facility] Weight 156.5 12/13/2014 [facility] Height 65.50 12/13/2014 [facility] Temperature Oral (F) 97.5 F 12/13/2014 [facility] Heart Rate 67 12/13/2014 [facility] Systolic (mm Hg) 123 12/13/2014 [facility] Diastolic (mm Hg) 65 12/13/2014 [facility] Encounters Location Location Encounter Encounter Reason Attending ADM DC Status Source Details Type Number For Provider Date Date Visit [id number] [facility] Izabela BEN[facility] /2014 [facility] Bedded [id number] Ang 01/21 01/22 [facility] Outpatient Izabela Morales /2014 [facility] [id number] Ang02/[facility] BENITE[facility] [place] [facility] [id number] Ang 02/26 02/26 [facility] 1330 Izabela BENITEZ [place] [id number] ANG04/24 [facility] Outpatient [id number] Non 05/01 05/02 [facility] Phill Physician /2014 [facility] Outpatient [id number] [facility]G 05[facility] [place] [facility] [id number] ANG 06/19 [facility] [place] Procedures Procedure Code Date Perfomer Comments Source smoking/tobacco 14 12/13/2014 no [facility] cessation, patient education and counseling Abdominal [id number] AGE 26 [facility] hysterectomy<sup>1< Medical Center /sup> CTR - Carpal tunnel [id number] 2004 [facility] release<sup>2</sup> [facility] Ligament [id number] 2010 [facility] repair<sup>3</sup> [facility] Miscellaneous [id number] 2013 [facility] operations<sup>4</s [facility] Center up> Abdominal [id number] 1AGE 26 [facility] hysterectomy<sup>1< /sup> CTR - Carpal tunnel [id number] 70029 [facility] release<sup>2</sup> Ligament [id number] 18177 [facility] repair<sup>3</sup> Miscellaneous [id number] 78731 [facility] operations<sup>4</s up>
--- OUTSIDE RECORDS SUMMARY | 2018-10-03 23:33 | XMS REPORT | Continuity of Care Document ---
:1960 Author Organization [facility] Care Team Providers Name Role Phone Nasir Gurrola MD Unavailable Insurance Providers Payer name Policy type / Coverage type Policy ID Covered green party ID Policy [place] AETNA (PPO) AETNA (PPO) Encounters Encounter Performer Location Date Office Visit Nasir Gurrola MD [facility] [place] Feb 05, 2015 Allergies, Adverse Reactions, Alerts Type Substance Reaction Status Drug allergy PREDNISONE Active Problems Problem Effective Dates Problem Status HISTORY OF ARTHRITIS December 13, 2014 Active HISTORY OF CHRONIC SINUSITIS December 13, 2014 Active HISTORY OF CIRRHOSIS December 13, 2014 Active HISTORY OF DEPRESSION December 13, 2014 Active HISTORY OF DEMENTIA December 13, 2014 Active HISTORY OF TYPE II DIABETES MELLITUS December 13, 2014 Active HISTORY OF HYPERTENSION December 13, 2014 Active HISTORY OF HYPERTHYROIDISM December 13, 2014 Active HISTORY OF MIGRAINE December 13, 2014 Active HISTORY OF PANIC DISORDER December 13, 2014 Active LOW BACK PAIN December 13, 2014 Active LUMBAR HNP December 13, 2014 Active LUMBAR STENOSIS December 13, 2014 Active LUMBAR RADICULOPATHY December 13, 2014 Active 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 December 13, 2014 Active Procedures Date Description Comments December 11, 2014 smoking status current every day smoker December 13, 2014 smoking status Current every day smoker December 13, 2014 smoking/tobacco cessation, patient education no and counseling Medications Medication Instructions Start Date Status ALPRAZOLAM ER 0.5 MG [id number] December 13, 2014 Active SYNTHROID 100 MCG TABS December 13, 2014 Active HYDROMORPHONE HCL 8 MG TABS December 13, 2014 Active AMITRIPTYLINE HCL 25 MG TABS December 13, 2014 Active LISINOPRIL-HYDROCHLOROTHIAZIDE December 13, 2014 Active 20-25 MG TABS VITAMIN D3 5000 UNIT TABS December 13, 2014 Active JANUVIA 100 MG TABS December 13, 2014 Active GLIMEPIRIDE 4 MG TABS December 13, 2014 Active METFORMIN HCL ER 500 MG [id number] December 13, 2014 Active ATORVASTATIN CALCIUM 80 MG TABS December 13, 2014 Active ULTRAM 50 MG TABS 1 tablet every 6 hours as needed Jan 17, 2015 Active for severe pain VALIUM 5 MG TABS one to two tabs PO Q4-6hrs prn Jan 17, 2015 Active muscle spasms COLACE 100 MG CAPS Take one capsule by mouth twice Jan 17, 2015 Active a day Vital Signs Date Description Test Result December 13, 2014 weight E&M - 3141-9 WEIGHT 156.5 lb December 13, 2014 height E&M - 8302-2 HEIGHT 65.50 in December 13, 2014 temperature E&M TEMPERATURE 97.5 deg f December 13, 2014 pulse rate E&M - 8867-4 PULSE RATE 67 /min December 13, 2014 blood pressure, systolic - 8480-6 BP SYSTOLIC 123 mm Hg December 13, 2014 blood pressure, diastolic - 8462-4 BP DIASTOLIC 65 mm Hg Feb 05, 2015 weight E&M - 3141-9 WEIGHT 157 lb Feb 05, 2015 height E&M - 8302-2 HEIGHT 65.50 in Feb 05, 2015 temperature E&M TEMPERATURE 98.9 deg f Feb 05, 2015 pulse rate E&M - 8867-4 PULSE RATE 68 /min Feb 05, 2015 blood pressure, systolic - 8480-6 BP SYSTOLIC 121 mm Hg Feb 05, 2015 blood pressure, diastolic - 8462-4 BP DIASTOLIC 68 mm Hg
--- OUTSIDE RECORDS SUMMARY | 2018-10-03 23:33 | XMS REPORT | Continuity of Care Document ---
:1960 Author Organization [facility] Care Team Providers Name Role Phone Nasir Gurrola MD Unavailable Insurance Providers Payer name Policy type / Coverage type Policy ID Covered libertarian ID Policy [place] AETNA (PPO) AETNA (PPO) Encounters Encounter Performer Location Date Office Visit Nasir Gurrola MD [facility] [place] Feb 26, 2015 Allergies, Adverse Reactions, Alerts Type Substance [...] Start Date Status ALPRAZOLAM ER 0.5 MG [id number] December 13, 2014 Active SYNTHROID 100 MCG [...] 2014 Active METFORMIN HCL ER 500 MG [id number] December 13, 2014 Active ATORVASTATIN CALCIUM 80 [...] - 8462-4 BP DIASTOLIC 68 mm Hg Feb 26, 2015 weight E&M - 3141-9 WEIGHT 153 lb Feb 26, 2015 height E&M - 8302-2 HEIGHT 65 in Feb 26, 2015 temperature E&M TEMPERATURE 97.9 deg f Feb 26, 2015 pulse rate E&M - 8867-4 PULSE RATE 88 /min Feb 26, 2015 blood pressure, systolic - 8480-6 BP SYSTOLIC 115 mm Hg Feb 26, 2015 blood pressure, diastolic - 8462-4 BP DIASTOLIC 87 mm Hg
--- OUTSIDE RECORDS SUMMARY | 2018-10-03 23:33 | XMS REPORT | Continuity of Care Document ---
:1960 Author Organization [facility] Care Team Providers Name Role Phone Nasir Gurrola MD Unavailable Insurance Providers Payer name Policy type / Coverage type Policy ID Covered green party ID Policy [place] AETNA (PPO) AETNA (PPO) Encounters Encounter Performer Location Date Office Visit Nasir Gurrola MD [facility] December 13, 2014 Allergies, Adverse Reactions, Alerts Type Substance Reaction [...] Start Date Status ALPRAZOLAM ER 0.5 MG [id number] December 13, 2014 Active SYNTHROID 100 MCG TABS December 13, 2014 Active HYDROMORPHONE HCL 8 MG TABS December 13, 2014 Active AMITRIPTYLINE HCL 25 MG TABS December 13, 2014 Active LISINOPRIL-HYDROCHLOROTHIAZIDE 20-25 MG TABS December 13, 2014 Active VITAMIN D3 5000 UNIT TABS December 13, 2014 Active JANUVIA 100 MG TABS December 13, 2014 Active GLIMEPIRIDE 4 MG TABS December 13, 2014 Active METFORMIN HCL ER 500 MG [id number] December 13, 2014 Active ATORVASTATIN CALCIUM 80 MG TABS December 13, 2014 Active Vital Signs Date Description Test Result December [...]
--- OUTSIDE RECORDS SUMMARY | 2018-10-03 23:34 | XMS REPORT | Summary of Care ---
:1960 Author Encounter JUANITA High(MAGDI) [id number] Date(s): 01/21/15 - 01/22/15 [facility] [address] [place] [address]- Discharge Disposition: Home Physician Attending: Nasir Villaseñor MD Physician_Referring: Nasir Villaseñor MD Vital Signs Most recent to oldest [Reference 1 2 3 Range]: Height 167.64 cm (01/15/15 2:18 PM) Temperature Oral [96.4-99.1 98.0 DegF 97.7 DegF 98.4 DegF DegF] (01/22/15 11:48 AM) (01/22/15 7:29 AM) (01/22/15 12:00 AM) Blood Pressure [90-140/60-90 109/55 mmHg 123/67 mmHg 114/63 mmHg mmHg] (01/22/15 11:48 AM) (01/22/15 7:29 AM) (01/22/15 12:00 AM) Respiratory Rate [14-20 BRMIN] 17 BRMIN 18 BRMIN 15 BRMIN (01/22/15 11:48 AM) (01/22/15 7:29 AM) (01/22/15 3:41 AM) Peripheral Pulse Rate [60-100 76 bpm 65 bpm 67 bpm bpm] (01/22/15 11:48 AM) (01/22/15 7:29 AM) (01/22/15 12:00 AM) Weight 70.909 kg (01/15/15 2:18 PM) Body Mass Index 25.23 m2 (01/15/15 2:18 PM) Problem List Condition Effective Dates Status Health Status Informant Calcaneal spur(Confirmed)1 Active Depression(Confirmed) Active Disorder of lumbar disc(Confirmed)2 Active DM - Diabetes mellitus(Confirmed) Active Fatty liver(Confirmed) Active Fibromyalgia(Confirmed) Active Hypercholesterolemia(Confirmed) Active Hypertension(Confirmed) Active Hypothyroidism(Confirmed) Active Osteoarthritis(Confirmed) Active Travel abroad(Confirmed)3 Resolved [id number] NOT TRAVELLED OUTSIDE OF [facility] IN THE LAST 30 DAYS Allergies, Adverse Reactions, Alerts Substance Reaction Severity Status predniSONE Active Medications acetaminophen 1,000 mg, 100 mL, Route: IVPB, Drug form: INJ, ONCE, Dosing Weight 70.909, kg, PRN Pain Score 1-3, Start date: 01/21/15 10:47:00, Duration: 1 doses or times, Stop date: Limited # of times Notes: Infuse over 15 minutesDo not exceed 4gm/day of acetaminophen MEDICATION WASTE ProductSize: 1000 mgProduct Wasted: ___ mg Start Date: 01/21/15 Stop Date: 01/21/15 Status: Discontinuedacetaminophen 650 mg, 2 tab, Route: PO, Drug form: TAB, Q4H, Dosing Weight 70.909, kg, PRN Pain 1-3/Temp > 100.4 F, Start date: 01/21/15 10:38:00, Duration: 30 day, Stop date: 02/20/15 10:37:00 Notes: Do not exceed 4 gm/day. (Same as: Tylenol) Start Date: 01/21/15 Stop Date: 01/22/15 Status: DiscontinuedALPRAZOLam 0.5 mg oral tablet, disintegrating 0.5 mg=1 tab, PO, Bedtime, 0 Refill(s) Start Date: 01/15/15 Stop Date: 01/21/15 Status: Discontinuedamitriptyline 25 mg, 1 tab, Route: PO, Drug form: TAB, Bedtime, Dosing Weight 70.909, kg, Start date: 01/21/15 21:00:00, Duration: 30 day, Stop date: 02/19/15 21:00:00 Notes: (Same as: Elavil) Start Date: 01/21/15 Stop Date: 01/22/15 Status: Discontinuedamitriptyline 25 mg oral tablet 25 mg=1 tab, PO, Bedtime, # 30 tab, 1 Refill(s) Start Date: 01/15/15 Status: Orderedatorvastatin 80 mg, 2 tab, Route: PO, Drug form: TAB, Bedtime, Dosing Weight 70.909, kg, Start date: 01/21/15 21:00:00, Duration: 30 day, Stop date: 02/19/15 21:00:00 Notes: (Same as: Lipitor) Start Date: 01/21/15 Stop Date: 01/22/15 Status: Discontinuedatorvastatin 80 mg oral tablet 80 mg=1 tab, PO, Daily, # 90 tab, 3 Refill(s) Start Date: 01/15/15 Status: OrderedceFAZolin 2 gm, 50 mL, Route: IVPB, Drug form: INJ, PRE OP, Start date: 01/21/15 5:00:00, Duration: 1 doses ortimes Start Date: 01/21/15 Stop Date: 01/21/15 Status: CompletedceFAZolin (SCIP) + Sodium Chloride 0.9% IV 100 mL 1 gm, Route: IVPB, Q8H, Dosing Weight 70.909, kg, Start date: 01/21/15 16:00:00 , Duration: 2 doses or times, Stop date: 01/22/15 0:00:00 Notes: (Same As: Molly Crocker) MEDICATION WASTE Product Size: 1000 mgProduct Wasted: ___ mg Start Date: 01/21/15 Stop Date: 01/22/15 Status: CompletedColace 100 mg oral capsule 100 mg=1 cap, PO, BID, # 90 cap, 1 Refill(s) Start Date: 01/21/15 Status: OrderedDextrose 50% Syringe 12.5 gm, 25 mL, Route: IVP, Drug Form: INJ, Dosing Weight 70.909, kg, PRN, PRN Blood Glucose Results, Start date: 01/21/15 23:17:00, Duration: 30 day, Stop date: 02/20/15 23:16:00 Start Date: 01/21/15 Stop Date: 01/21/15 Status: DiscontinuedDextrose 50% Syringe 25 gm, 50 mL, Route: IVP, Drug Form: INJ, Dosing Weight 70.909, kg, PRN, PRN Blood Glucose Results, Start date: 01/21/15 23:17:00, Duration: 30 day, Stop date: 02/20/15 23:16:00 Start Date: 01/21/15 Stop Date: 01/21/15 Status: DiscontinuedDextrose 50% Syringe 25 gm, 50 mL, Route: IVP, Drug Form: INJ, Dosing Weight 70.909, kg, PRN, PRN Blood Glucose Results, Start date: 01/21/15 23:21:00, Duration: 30 day, Stop date: 02/20/15 23:20:00 Start Date: 01/21/15 Stop Date: 01/22/15 Status: DiscontinuedDextrose 50% Syringe 12.5 gm, 25 mL, Route: IVP, Drug Form: INJ, Dosing Weight 70.909, kg, PRN, PRN Blood Glucose Results, Start date: 01/21/15 23:21:00, Duration: 30 day, Stop date: 02/20/15 23:20:00 Start Date: 01/21/15 Stop Date: 01/22/15 Status: DiscontinuedDextrose 50% Syringe 12.5 gm, 25 mL, Route: IVP, Drug Form: INJ, Dosing Weight 70.909, kg, PRN, PRN Blood Glucose Results, Start date: 01/21/15 10:54:00, Duration: 30 day, Stop date: 02/20/15 10:53:00 Start Date: 01/21/15 Stop Date: 01/21/15 Status: DiscontinuedDextrose 50% Syringe 25 gm, 50 mL, Route: IVP, Drug Form: INJ, Dosing Weight 70.909, kg, PRN, PRN Blood Glucose Results, Start date: 01/21/15 10:54:00, Duration: 30 day, Stop date: 02/20/15 10:53:00 Start Date: 01/21/15 Stop Date: 01/21/15 Status: Discontinueddiazepam 10 mg, 2 tab, Route: PO, Drug form: TAB, Q4H, Dosing Weight 70.909, kg, PRN Other -See Comment, Start date: 01/21/15 10:38:00, Duration: 7 day, Stop date: 01/28/15 10:37:00, severe muscle spasms Notes: (Same as: Valium) Start Date: 01/21/15 Stop Date: 01/22/15 Status: Discontinueddiazepam 5 mg, 1 mL, Route: IVP, Drug form: INJ, Q4H, Dosing Weight 70.909, kg, PRN Other -See Comment, Startdate: 01/21/15 10:38:00, Duration: 7 day, Stop date: 10:37:00, moderate muscle spasms Notes: (Same as: Valium) Start Date: 01/21/15 Stop Date: 01/22/15 Status: Discontinueddiazepam 10 mg, 2 mL, Route: IVP, Drug form: INJ, Q4H, Dosing Weight 70.909, kg, PRN Other -See Comment, Start date: 01/21/15 10:38:00, Duration: 7 day, Stop date: 01/28/15 10:37:00, severe muscle spasms Notes: (Same as: Valium) Start Date: 01/21/15 Stop Date: 01/22/15 Status: Discontinueddiazepam 5 mg, 1 tab, Route: PO, Drug form: TAB, Q4H, Dosing Weight 70.909, kg, PRN Other -See Comment, Startdate: 01/21/15 10:38:00, Duration: 7 day, Stop date: 10:37:00, moderate muscle spasms Notes: (Same as: Valium) Start Date: 01/21/15 Stop Date: 01/22/15 Status: DiscontinuedDilaudid 0.5 mg, 0.5 mL, Route: IV, Drug form: INJ, Q5Min, Dosing Weight 70.909, kg, PRN Pain Score 7-10, Start date: 01/21/15 10:47:00, Duration: 4 doses or times, Stop date: 01/21/15 20:00:00 Notes: Same as: Dilaudid Start Date: 01/21/15 Stop Date: 01/21/15 Status: Discontinueddocusate 100 mg, 1 cap, Route: PO, Drug form: CAP, BID, Dosing Weight 70.909, kg, Start date: 01/21/15 17:00:00, Duration: 30 day, Stop date: 02/20/15 9:00:00 Notes: (Same as: Colace) (Do Not Crush) Start Date: 01/21/15 Stop Date: 01/22/15 Status: DiscontinuedFish Oil 1,000 mg, PO, 2 X WEEK, 0 Refill(s) Special Instructions: 2 X WEEK Start Date: 01/15/15 Stop Date: 01/21/15 Status: Discontinuedflumazenil 0.2 mg, 2 mL, Route: IVP, Drug form: INJ, PRN, Dosing Weight 70.909, kg, PRN Benzodiazepine Reversal, Initial dose, Start date: 01/21/15 10:47:00, Stop date : 01/21/15 20:00:00 Notes: (Same as: Romazicon) Start Date: 01/21/15 Stop Date: 01/21/15 Status: Discontinuedglimepiride 4 mg, 2 tab, Route: PO, Drug form: TAB, Breakfast, Dosing Weight 70.909, kg, Start date: 01/22/15 8:00:00, Duration: 30 day, Stop date: 02/20/15 8:00:00 Notes: (Same as: Amaryl) Start Date: 01/22/15 Stop Date: 01/22/15 Status: Discontinuedglimepiride 4 mg oral tablet 4 mg=1 tab, PO, Breakfast, # 30 tab, 0 Refill(s) Start Date: 01/15/15 Status: Orderedglucagon 1 mg, Route: IM, Drug form: PDR/INJ, PRN, Dosing Weight 70.909, kg, PRN Blood Glucose Results, Startdate: 01/21/15 23:17:00, Duration: 30 day, Stop date: 11/30 23:16:00 Start Date: 01/21/15 Stop Date: 01/21/15 Status: Discontinuedglucagon 1 mg, Route: IM, Drug form: PDR/INJ, PRN, Dosing Weight 70.909, kg, PRN Blood Glucose Results, Startdate: 01/21/15 23:21:00, Duration: 30 day, Stop date: 11/30 23:20:00 Start Date: 01/21/15 Stop Date: 01/22/15 Status: Discontinuedglucagon 1 mg, Route: IM, Drug form: PDR/INJ, PRN, Dosing Weight 70.909, kg, PRN Blood Glucose Results, Startdate: 01/21/15 10:54:00, Duration: 30 day, Stop date: 11/30 10:53:00 Start Date: 01/21/15 Stop Date: 01/21/15 Status: Discontinuedheparin 5,000 unit, 1 mL, Route: SUB-Q, Drug form: INJ, Q12H, Dosing Weight 70.909, kg, Start date: 156:00:00, Duration: 30 day, Stop date: 02/20/15 18:00:00 Notes: porcine heparin Start Date: 01/22/15 Stop Date: 01/22/15 Status: DiscontinuedhydrALAZINE 10 mg, 0.5 mL, Route: IVP, Drug form: INJ, Q20Min, Dosing Weight 70.909, kg, PRN Elevated BP, Start date: 01/21/15 10:47:00, Duration: 2 doses or times, Stop date: 01/21/15 20:00:00 Notes: (Same as: Apresoline)Push over 5 minutes Start Date: 01/21/15 Stop Date: 01/21/15 Status: Discontinuedhydrochlorothiazide-lisinopril 25 mg-20 mg oral tablet 1 tab, PO, Daily, # 30 tab, 0 Refill(s) Start Date: 01/15/15 Status: Orderedhydrochlorothiazide-lisinopril 25 mg-20 mg oral tablet 2 tab, Route: PO, Drug Form: TAB, Dosing Weight 70.909, kg, Daily, Start date: 01/21/15 12:00:00, Duration: 30 day, Stop date: 02/20/15 9:00:00 Notes: Non-formulary drug. (lisinopril-hydrochlorothiazide 10-12.5 mg TAB) (Same as: Prinzide, Zestoretic) Start Date: 01/21/15 Stop Date: 01/22/15 Status: Discontinuedhydromorphone 0.5 mg, 0.5 mL, Route: IVP, Drug form: INJ, Q5Min, Dosing Weight 70.909, kg, PRN Pain Score 7-10, Start date: 01/21/15 10:47:00, Duration: 4 doses or times, Stop date: 01/21/15 20:00:00 Notes: Same as: Dilaudid Start Date: 01/21/15 Stop Date: 01/21/15 Status: Discontinuedhydromorphone 4 mg, 2 tab, Route: PO, Drug form: TAB, Q4H, Dosing Weight 70.909, kg, PRN Other -See Comment, Startdate: 01/21/15 10:38:00, Duration: 3 day, Stop date: 10:37:00 Notes: (Same as: Dilaudid) Start Date: 01/21/15 Stop Date: 01/22/15 Status: Discontinuedhydromorphone 8 mg, 4 tab, Route: PO, Drug form: TAB, Q4H, Dosing Weight 70.909, kg, PRN Other -See Comment, Startdate: 01/21/15 10:38:00, Duration: 3 day, Stop date: 10:37:00 Notes: (Same as: Dilaudid) Start Date: 01/21/15 Stop Date: 01/22/15 Status: Discontinuedhydromorphone 1 mg, 1 mL, Route: IV, Drug form: INJ, Q4H, Dosing Weight 70.909, kg, PRN Other -See Comment, Start date: 01/21/15 10:38:00, Duration: 3 day, Stop date: 10:37:00 Notes: Same as: Dilaudid Start Date: 01/21/15 Stop Date: 01/22/15 Status: Discontinuedhydromorphone 2 mg, 2 mL, Route: IV, Drug form: INJ, Q4H, Dosing Weight 70.909, kg, PRN Other -See Comment, Start date: 01/21/15 10:38:00, Duration: 3 day, Stop date: 10:37:00 Notes: Same as: Dilaudid Start Date: 01/21/15 Stop Date: 01/22/15 Status: Discontinuedhydromorphone 8 mg oral tablet 8 mg=1 tab, PO, Q4H, 0 Refill(s) Start Date: 01/15/15 Status: Orderedinsulin aspart 4 unit, 0.04 mL, Route: SUB-Q, Drug form: SOLN, Bedtime, Dosing Weight 70.909, kg, PRN Blood GlucoseResults, Start date: 01/21/15 23:17:00, Duration: 30 day, Stop date: 02/20/15 23:16:00 Notes: Roll in palms of hands gently; Do not shake vigorously. (Same as: NovoLOG)"single patient use only" Stable for 28 days at room temperature.Expires in days from Date Start Date: 01/21/15 Stop Date: 01/22/15 Status: Discontinuedinsulin aspart 3 unit, 0.03 mL, Route: SUB-Q, Drug form: SOLN, Bedtime, Dosing Weight 70.909, kg, PRN Blood GlucoseResults, Start date: 01/21/15 23:17:00, Duration: 30 day, Stop date: 02/20/15 23:16:00 Notes: Roll in palms of hands gently; Do not shake vigorously. (Same as: NovoLOG)"single patient use only" Stable for 28 days at room temperature.Expires in days from Date Start Date: 01/21/15 Stop Date: 01/22/15 Status: Discontinuedinsulin aspart 2 unit, 0.02 mL, Route: SUB-Q, Drug form: SOLN, Bedtime, Dosing Weight 70.909, kg, PRN Blood GlucoseResults, Start date: 01/21/15 23:17:00, Duration: 30 day, Stop date: 02/20/15 23:16:00 Notes: Roll in palms of hands gently; Do not shake vigorously. (Same as: NovoLOG)"single patient use only" Stable for 28 days at room temperature.Expires in days from Date Start Date: 01/21/15 Stop Date: 01/22/15 Status: Discontinuedinsulin aspart 1 unit, 0.01 mL, Route: SUB-Q, Drug form: SOLN, Bedtime, Dosing Weight 70.909, kg, PRN Blood GlucoseResults, Start date: 01/21/15 23:17:00, Duration: 30 day, Stop date: 02/20/15 23:16:00 Notes: Roll in palms of hands gently; Do not shake vigorously. (Same as: NovoLOG)"single patient use only" Stable for 28 days at room temperature.Expires in days from Date Start Date: 01/21/15 Stop Date: 01/22/15 Status: Discontinuedinsulin aspart 1 unit, Route: SUB-Q, TID-Before Meals, Dosing Weight 70.909, kg, PRN Blood Glucose Results, Start date: 01/21/15 23:17:00, Duration: 30 day, Stop date: 11/30 23:16:00 Start Date: 01/21/15 Stop Date: 01/21/15 Status: Discontinuedinsulin aspart 4 unit, Route: SUB-Q, TID-Before Meals, Dosing Weight 70.909, kg, PRN Blood Glucose Results, Start date: 01/21/15 23:17:00, Duration: 30 day, Stop date: 11/30 23:16:00 Start Date: 01/21/15 Stop Date: 01/21/15 Status: Discontinuedinsulin aspart 5 unit, Route: SUB-Q, TID-Before Meals, Dosing Weight 70.909, kg, PRN Blood Glucose Results, Start date: 01/21/15 23:17:00, Duration: 30 day, Stop date: 11/30 23:16:00 Start Date: 01/21/15 Stop Date: 01/21/15 Status: Discontinuedinsulin aspart 3 unit, Route: SUB-Q, TID-Before Meals, Dosing Weight 70.909, kg, PRN Blood Glucose Results, Start date: 01/21/15 23:17:00, Duration: 30 day, Stop date: 11/30 23:16:00 Start Date: 01/21/15 Stop Date: 01/21/15 Status: Discontinuedinsulin aspart 2 unit, Route: SUB-Q, TID-Before Meals, Dosing Weight 70.909, kg, PRN Blood Glucose Results, Start date: 01/21/15 23:17:00, Duration: 30 day, Stop date: 11/30 23:16:00 Start Date: 01/21/15 Stop Date: 01/21/15 Status: Discontinuedinsulin aspart 2 unit, 0.02 mL, Route: SUB-Q, Drug form: SOLN, TID-Before Meals, Dosing Weight 70.909, kg, PRN Blood Glucose Results, Start date: 01/21/15 23:21:00, Duration: 30 day, Stop date: 02/20/15 23:20:00 Notes: Roll in palms of hands gently; Do not shake vigorously. (Same as: NovoLOG)"single patient use only" Stable for 28 days at room temperature.Expires in days from Date Start Date: 01/21/15 Stop Date: 01/22/15 Status: Discontinuedinsulin aspart 3 unit, 0.03 mL, Route: SUB-Q, Drug form: SOLN, TID-Before Meals, Dosing Weight 70.909, kg, PRN Blood Glucose Results, Start date: 01/21/15 23:21:00, Duration: 30 day, Stop date: 02/20/15 23:20:00 Notes: Roll in palms of hands gently; Do not shake vigorously. (Same as: NovoLOG)"single patient use only" Stable for 28 days at room temperature.Expires in days from Date Start Date: 01/21/15 Stop Date: 01/22/15 Status: Discontinuedinsulin aspart 1 unit, 0.01 mL, Route: SUB-Q, Drug form: SOLN, TID-Before Meals, Dosing Weight 70.909, kg, PRN Blood Glucose Results, Start date: 01/21/15 23:21:00, Duration: 30 day, Stop date: 02/20/15 23:20:00 Notes: Roll in palms of hands gently; Do not shake vigorously. (Same as: NovoLOG)"single patient use only" Stable for 28 days at room temperature.Expires in days from Date Start Date: 01/21/15 Stop Date: 01/22/15 Status: Discontinuedinsulin aspart 5 unit, 0.05 mL, Route: SUB-Q, Drug form: SOLN, TID-Before Meals, Dosing Weight 70.909, kg, PRN Blood Glucose Results, Start date: 01/21/15 23:21:00, Duration: 30 day, Stop date: 02/20/15 23:20:00 Notes: Roll in palms of hands gently; Do not shake vigorously. (Same as: NovoLOG)"single patient use only" Stable for 28 days at room temperature.Expires in days from Date Start Date: 01/21/15 Stop Date: 01/22/15 Status: Discontinuedinsulin aspart 4 unit, 0.04 mL, Route: SUB-Q, Drug form: SOLN, TID-Before Meals, Dosing Weight 70.909, kg, PRN Blood Glucose Results, Start date: 01/21/15 23:21:00, Duration: 30 day, Stop date: 02/20/15 23:20:00 Notes: Roll in palms of hands gently; Do not shake vigorously. (Same as: NovoLOG)"single patient use only" Stable for 28 days at room temperature.Expires in days from Date Start Date: 01/21/15 Stop Date: 01/22/15 Status: Discontinuedinsulin aspart 1 unit, 0.01 mL, Route: SUB-Q, Drug form: SOLN, TID-Before Meals, Dosing Weight 70.909, kg, PRN Blood Glucose Results, Start date: 01/21/15 10:54:00, Duration: 30 day, Stop date: 02/20/15 10:53:00 Notes: Roll in palms of hands gently; Do not shake vigorously. (Same as: NovoLOG)"single patient use only" Stable for 28 days at room temperature.Expires in days from Date Start Date: 01/21/15 Stop Date: 01/21/15 Status: Discontinuedinsulin aspart 2 unit, 0.02 mL, Route: SUB-Q, Drug form: SOLN, TID-Before Meals, Dosing Weight 70.909, kg, PRN Blood Glucose Results, Start date: 01/21/15 10:54:00, Duration: 30 day, Stop date: 02/20/15 10:53:00 Notes: Roll in palms of hands gently; Do not shake vigorously. (Same as: NovoLOG)"single patient use only" Stable for 28 days at room temperature.Expires in days from Date Start Date: 01/21/15 Stop Date: 01/21/15 Status: Discontinuedinsulin aspart 3 unit, 0.03 mL, Route: SUB-Q, Drug form: SOLN, TID-Before Meals, Dosing Weight 70.909, kg, PRN Blood Glucose Results, Start date: 01/21/15 10:54:00, Duration: 30 day, Stop date: 02/20/15 10:53:00 Notes: Roll in palms of hands gently; Do not shake vigorously. (Same as: NovoLOG)"single patient use only" Stable for 28 days at room temperature.Expires in days from Date Start Date: 01/21/15 Stop Date: 01/21/15 Status: Discontinuedinsulin aspart 4 unit, 0.04 mL, Route: SUB-Q, Drug form: SOLN, TID-Before Meals, Dosing Weight 70.909, kg, PRN Blood Glucose Results, Start date: 01/21/15 10:54:00, Duration: 30 day, Stop date: 02/20/15 10:53:00 Notes: Roll in palms of hands gently; Do not shake vigorously. (Same as: NovoLOG)"single patient use only" Stable for 28 days at room temperature.Expires in days from Date Start Date: 01/21/15 Stop Date: 01/21/15 Status: Discontinuedinsulin aspart 5 unit, 0.05 mL, Route: SUB-Q, Drug form: SOLN, TID-Before Meals, Dosing Weight 70.909, kg, PRN Blood Glucose Results, Start date: 01/21/15 10:54:00, Duration: 30 day, Stop date: 02/20/15 10:53:00 Notes: Roll in palms of hands gently; Do not shake vigorously. (Same as: NovoLOG)"single patient use only" Stable for 28 days at room temperature.Expires in days from Date Start Date: 01/21/15 Stop Date: 01/21/15 Status: DiscontinuedJanuvia 100 mg, 1 tab, Route: PO, Drug form: TAB, Daily, Dosing Weight 70.909, kg, Start date: 01/21/15 12:00:00, Duration: 30 day, Stop date: 02/20/15 9:00:00 Notes: (Same as: Januvia) Start Date: 01/21/15 Stop Date: 01/22/15 Status: DiscontinuedJanuvia 100 mg oral tablet 100 mg=1 tab, PO, Daily, # 30 tab, 0 Refill(s) Start Date: 01/15/15 Status: OrderedketOROLAC 30 mg, 1 mL, Route: IVP, Drug form: INJ, ONCE, Dosing Weight 70.909, kg, Start date: 01/21/15 10:47:00, Duration: 1 doses or times, Stop date: 01/21/15 10:47: 00 Notes: (Same as:Toradol) IV bolus must be given >15 seconds. Give IM administration slowly and deeply into the muscle.Not for use > 4 days MEDICATION WASTE Product Size: 30 mgProduct Wasted: ___ mg Start Date: 01/21/15 Stop Date: 01/21/15 Status: Completedlabetalol 10 mg, 2 mL, Route: IVP, Drug form: INJ, Q5Min, Dosing Weight 70.909, kg, PRN Elevated BP, Start date: 01/21/15 10:47:00, Duration: 5 doses or times, Stop date: 01/21/15 20:00:00 Notes: (Same as: Normodyne, Trandate)Push over 2 minutes Give bolus over 2-3 minutes. Start Date: 01/21/15 Stop Date: 01/21/15 Status: DiscontinuedLactated Ringers IV 1,000 mL 1,000 mL, Rate: 100 ml/hr, Infuse over: 10 hr, Route: IV, Dosing Weight 70.909 kg, Total Volume: 1,000, Start date: 01/21/15 5:31:00, Duration: 30 day, Stop date: 02/20/15 5:30:00 Start Date: 01/21/15 Stop Date: 01/22/15 Status: DiscontinuedLR IV 500 mL 500 mL, Rate: 125 ml/hr, Infuse over: 4 hr, Route: IV, Dosing Weight 70.909 kg, Total Volume: 500, Start date: 01/21/15 10:38:00, Duration: 30 day, Stop date: 02/20/15 10:37:00 Start Date: 01/21/15 Stop Date: 01/22/15 Status: Discontinuedmeperidine 12.5 mg, 0.5 mL, Route: IVP, Drug form: INJ, Q5Min, Dosing Weight 70.909, kg, PRN Pain Score 4-6, Start date: 01/21/15 10:47:00, Duration: 4 doses or times, Stop date: 01/21/15 20:00:00 Notes: (Same as: Demerol) "Use Precaution in Elderly, Seizure disorders, and Renal impairment" Start Date: 01/21/15 Stop Date: 01/21/15 Status: Discontinuedmeperidine 50 mg, 1 mL, Route: IM, Drug form: INJ, ONCE, Dosing Weight 70.909, kg, PRN Pain Score 7-10, Start date: 01/21/15 10:47:00 Notes: (Same as: Demerol) "Use Precaution in Elderly, Seizure disorders, and Renal impairment" Start Date: 01/21/15 Stop Date: 01/21/15 Status: DiscontinuedmetFORMIN 500 mg oral tablet 1,000 mg, 2 tab, Route: PO, Drug form: TAB, BID-Meals, Dosing Weight 70.909, kg , Start date: 01/21/15 17:00:00, Duration: 30 day, Stop date: 02/20/15 8:00:00 Notes: (Same as: Glucophage) Take with meal Start Date: 01/21/15 Stop Date: 01/22/15 Status: DiscontinuedmetFORMIN 500 mg oral tablet 1,000 mg=2 tab, PO, BID, 0 Refill(s) Start Date: 01/15/15 Status: Orderedmetoprolol 1 mg, 1 mL, Route: IVP, Drug form: INJ, Q5Min, Dosing Weight 70.909, kg, PRN Other -See Comment, Start date: 01/21/15 10:47:00, Duration: 5 doses or times, Stop date: 01/21/15 20:00:00 Notes: (Same as: Lopressor)Push over 2 minutes Start Date: 01/21/15 Stop Date: 01/21/15 Status: Discontinuedmorphine Sulfate 2 mg, 1 mL, Route: IVP, Drug form: INJ, Q5Min, Dosing Weight 70.909, kg, PRN Pain Score 4-6, Start date: 01/21/15 10:47:00, Duration: 5 doses or times, Stop date: Limited # of times Notes: (Same as:MORPhine Sulfate) Start Date: 01/21/15 Stop Date: 01/21/15 Status: DiscontinuedMovantik 25 mg oral tablet 25 mg=1 tab, PO, QAM, 0 Refill(s) Start Date: 01/21/15 Status: Orderedmultivitamin 1 tab, PO, Daily, 0 Refill(s) Start Date: 01/15/15 Status: Orderedmultivitamin 1 tab, Route: PO, Dosing Weight 70.909, kg, Daily, Start date: 01/22/15 9:00:00 , Duration: 30 day, Stop date: 02/20/15 9:00:00 Start Date: 01/22/15 Stop Date: 01/21/15 Status: Deletedmultivitamin with minerals 1 tab, Route: PO, Drug Form: TAB, Daily, Start date: 01/21/15 12:00:00, Duration : 30 day, Stop date:02/20/15 9:00:00 Notes: Give with food.(Same As: Stress 600 with Zinc) Start Date: 01/21/15 Stop Date: 01/22/15 Status: Discontinuednaloxone 0.04 mg, 0.1 mL, Route: IVP, Drug form: INJ, Q2MIN, Dosing Weight 70.909, kg, PRN Narcotic Reversal,Start date: 01/21/15 10:47:00, Duration: 8 doses or times , Stop date: 01/21/15 20:00:00 Notes: Same as Narcan Start Date: 01/21/15 Stop Date: 01/21/15 Status: Discontinuedondansetron 4 mg, 2 mL, Route: IVP, Drug form: INJ, ONCE, Dosing Weight 70.909, kg, PRN Nausea & Vomiting, Start date: 01/21/15 10:47:00 Notes: (Same as: Zofran) MEDICATION WASTE Product Size: 4 mgProduct Wasted: ___ mg Start Date: 01/21/15 Stop Date: 01/21/15 Status: Discontinuedpantoprazole 40 mg, 1 tab, Route: PO, Drug form: ECTAB, Before Dinner, Dosing Weight 70.909, kg, Start date: 01/21/15 16:30:00, Duration: 30 day, Stop date: 02/19/15 16:30: 00 Notes: Tablet should not be chewed or crushed.(Same as: Protonix) Start Date: 01/21/15 Stop Date: 01/22/15 Status: DiscontinuedPhenergan 12.5 mg, 0.5 mL, Route: IM, Drug form: INJ, ONCE, Dosing Weight 70.909, kg, PRN Nausea, Start date: 01/21/15 10:47:00 Notes: Do not give IV push. (Same as: Phenergan) Start Date: 01/21/15 Stop Date: 01/21/15 Status: DiscontinuedPhenergan 12.5 mg, 50 mL, Route: IVPB, Drug form: SOLN, ONCE, Dosing Weight 70.909, kg, PRN Nausea & Vomiting, Start date: 01/21/15 10:47:00 Start Date: 01/21/15 Stop Date: 01/21/15 Status: CompletedPhenergan 25 mg, 50 mL, Route: IVP Central, Drug form: SOLN, Q4H, Dosing Weight 70.909, kg , PRN Nausea & Vomiting, If N/V refractory to Zofran and Reglan,patient may receive Phenergan IVP per Dr. Gurrola, Start date: 01/21/15 10:38:00, Duration: 30 day, Stop date... Start Date: 01/21/15 Stop Date: 01/22/15 Status: Discontinuedpotassium chloride 10 mEq, 1 tab, Route: PO, Drug form: ERTAB, Daily, Dosing Weight 70.909, kg, Start date: 01/21/15 12:00:00, Duration: 30 day, Stop date: 02/20/15 9:00:00 Notes: (Same as: K-Dur 10)"Do Not Crush" With food and full glass of water Start Date: 01/21/15 Stop Date: 01/22/15 Status: Discontinuedpotassium chloride 10 mEq, PO, Daily, 0 Refill(s) Start Date: 01/15/15 Status: OrderedReglan 10 mg, 1 tab, Route: PO, Drug form: TAB, BID, Dosing Weight 70.909, kg, PRN Other -See Comment, Start date: 01/21/15 10:38:00, Duration: 30 day, Stop date: 02/20/15 10:37:00, nausea or vomiting if patient refractory to ondansetron Notes: (Same as: Reglan) Take 30 min before meals Start Date: 01/21/15 Stop Date: 01/22/15 Status: DiscontinuedReglan 10 mg, 2 mL, Route: IVP, Drug form: INJ, BID, Dosing Weight 70.909, kg, PRN Other -See Comment, Start date: 01/21/15 10:38:00, Duration: 30 day, Stop date: 02/20/15 10:37:00, nausea or vomiting if patient refractory to ondansetron Notes: (Same as: Reglan) Start Date: 01/21/15 Stop Date: 01/22/15 Status: DiscontinuedSodium Chloride 0.9% IV 250 mL 250 mL, Rate: 25 ml/hr, Infuse over: 10 hr, Route: IV, Dosing Weight 70.909 kg, Total Volume: 250, Start date: 01/21/15 7:50:00, Duration: 1 doses or times, Stop date: 01/21/15 17:49:00 Start Date: 01/21/15 Stop Date: 01/21/15 Status: CompletedSynthroid 88 microgram, 1 tab, Route: PO, Drug form: TAB, Daily, Dosing Weight 70.909, kg , Start date: 01/21/15 11:00:00, Duration: 30 day, Stop date: 02/20/15 9:00:00 Notes: Take 1 hour before or 2 hours after meal; Enteral feeds may interefere with the absorption ofthis medication. (Same as:Synthroid) Start Date: 01/21/15 Stop Date: 01/22/15 Status: DiscontinuedSynthroid 88 mcg (0.088 mg) oral tablet 88 microgram=1 tab, PO, Daily, # 30 tab, 0 Refill(s) Start Date: 01/15/15 Status: OrderedUltram 50 mg oral tablet 50 mg=1 tab, PO, Q6H, PRN as needed for pain, # 30 tab, 0 Refill(s) Start Date: 01/21/15 Stop Date: 01/31/15 Status: OrderedValium 5 mg oral tablet 1-2, PO, Q4H, PRN as needed for muscle spasms, # 30 tab, 4 Refill(s) Start Date: 01/21/15 Stop Date: 02/21/15 Status: OrderedVitamin D3 5000 intl units oral tablet 5,000 IntlUnit=1 tab, PO, 2 X WEEK, 0 Refill(s) Special Instructions: 2 X WEEK Start Date: 01/15/15 Status: OrderedXylocaine-MPF 1% preservative-free injectable solution 0.1 mL, Route: INTRADERM, Drug form: INJ, PRE OP, Dosing Weight 70.909, kg, Start date: 01/21/15 6:00:00, Duration: 30 day, Stop date: 02/20/15 5:59:00 Notes: Preservative free. (Same as: Xylocaine MPF) Start Date: 01/21/15 Stop Date: 01/21/15 Status: CompletedZofran 4 mg, 2 mL, Route: IVP, Drug form: INJ, Q4H, Dosing Weight 70.909, kg, PRN Other -See Comment, If N/V refractory to first dose of Zofran IVP, patient may receive an additional 4mg IVP dose of Zofran per Dr. Gurrola, Start date: 11:27:00, Durati... Notes: (Same as: Zofran) MEDICATION WASTE Product Size: 4 mgProduct Wasted: ___ mg Start Date: 01/21/15 Stop Date: 01/22/15 Status: DiscontinuedZofran 4 mg, 2 mL, Route: IVP, Drug form: INJ, Q4H, Dosing Weight 70.909, kg, PRN Nausea, Start date: 01/21/15 10:38:00, Duration: 30 day, Stop date: 02/20/15 10: 37:00 Notes: (Same as: Zofran) MEDICATION WASTE Product Size: 4 mgProduct Wasted: ___ mg Start Date: 01/21/15 Stop Date: 01/22/15 Status: Discontinued Results BLOOD BANK RESULTS Most recent to oldest [Reference Range]: 1 ABO/Rh A POS *Unknown* (01/15/15 3:22 PM) Antibody Scrn Negative (01/15/15 3:22 PM) Platelet product Product available (01/16/15 8:58 AM) ELECTROLYTES Most recent to oldest [Reference Range]: 1 Sodium Lvl [135-145 mEq/L] 142 mEq/L (01/15/15 3:22 PM) Potassium Lvl [3.5-5.1 mEq/L] 3.7 mEq/L (01/15/15 3:22 PM) Chloride Lvl [95-109 mEq/L] 105 mEq/L (01/15/15 3:22 PM) CO2 [24-32 mEq/L] 31 mEq/L (01/15/15 3:22 PM) AGAP [10.0-20.0 mEq/L] 9.7 mEq/L *LOW* (01/15/15 3:22 PM) CHEM PANEL Most recent to oldest [Reference Range]: 1 Creatinine Lvl [0.5-1.4 mg/dL] 0.8 mg/dL (01/15/15 3:22 PM) eGFR 83 mL/min/1.73m2 1 *NA* (01/15/15 3:22 PM) BUN [7-22 mg/dL] 9 mg/dL (01/15/15 3:22 PM) Glucose Lvl [70-99 mg/dL] 172 mg/dL 2 *HI* (01/15/15 3:22 PM) Calcium Lvl [8.5-10.5 mg/dL] 9.0 mg/dL (01/15/15 3:22 PM) 1Result Comment: The eGFR is calculated using the CKD-EPI formula. In most young , healthy individualsthe eGFR will be >90 mL/min/1.73m2. The eGFR declines with age. An eGFR of 60-89 may be normal in some populations, particularly the elderly, for whom the CKD-EPI formula has not been extensively validated. Use of the eGFR is not recommended in the following populations: Individuals with unstable creatinine concentrations, including patients and those with serious co-morbid conditions. Patients with extremes in muscle mass or diet. The data above are obtained from the National Kidney Disease Education Program ( NKDEP) which additionally recommends that when the eGFR is used in patients with extremes of body mass index for purposesof drug dosing, the eGFR should be multiplied by the estimated BMI.2Interpretive Data: Adult reference range values reflect the clinical guidelines of the [employer].URINE AND STOOL Most recent to oldest [Reference Range]: 1 UA Turbidity [Clear] Clear (01/15/15 3:22 PM) UA Color [Yellow] Yellow *NA* (01/15/15 3:22 PM) UA pH [5.0-8.0] 6.0 (01/15/15 3:22 PM) UA Spec Grav [<=1.030] 1.025 (01/15/15 3:22 PM) UA Glucose [Negative mg/dL] >=1000 mg/dL *ABN* (01/15/15 3:22 PM) UA Blood [Negative] Small *ABN* (01/15/15 3:22 PM) UA Ketones [Negative] Negative *NA* (01/15/15 3:22 PM) UA Protein [Negative] Negative (01/15/15 3:22 PM) UA Urobilinogen [0.1-1.0 EU/dL] 4.0 EU/dL *HI* (01/15/15 3:22 PM) UA Bili [Negative] Negative *NA* (01/15/15 3:22 PM) UA Leuk Est [Negative] Negative (01/15/15 3:22 PM) UA Nitrite [Negative] Negative (01/15/15 3:22 PM) UA WBC [None Seen /HPF] 0-2 /HPF (01/15/15 3:22 PM) UA RBC [0-2 /HPF] 0-2 /HPF (01/15/15 3:22 PM) UA Sq Epi [Few /LPF] Occasional /LPF (01/15/15 3:22 PM) Micro? Performed (01/15/15 3:22 PM) HEMATOLOGY Most recent to oldest [Reference Range]: 1 WBC [3.7-10.4 K/CMM] 10.0 K/CMM (01/15/15 3:22 PM) RBC [4.20-5.40 M/CMM] 4.33 M/CMM (01/15/15 3:22 PM) Hgb [12.0-16.0 g/dL] 13.7 g/dL (01/15/15 3:22 PM) Hct [36.0-48.0 %] 41.2 % (01/15/15 3:22 PM) MCV [80.0-98.0 fL] 95.1 fL (01/15/15 3:22 PM) MCH [27.0-31.0 pg] 31.7 pg *HI* (01/15/15 3:22 PM) MCHC [32.0-36.0 g/dL] 33.4 g/dL (01/15/15 3:22 PM) RDW [11.5-14.5 %] 13.1 % (01/15/15 3:22 PM) Platelet [133-450 K/CMM] 112 K/CMM *LOW* (01/15/15 3:22 PM) MPV [7.4-10.4 fL] 9.7 fL (01/15/15 3:22 PM) Segs [45.0-75.0 %] 34.6 % *LOW* (01/15/15 3:22 PM) Lymphocytes [20.0-40.0 %] 57.6 % *HI* (01/15/15 3:22 PM) Monocytes [2.0-12.0 %] 4.7 % (01/15/15 3:22 PM) Eosinophils [0.0-4.0 %] 2.9 % (01/15/15 3:22 PM) Basophils [0.0-1.0 %] 0.2 % (01/15/15 3:22 PM) Segs-Bands # [1.5-8.1 K/CMM] 3.5 K/CMM (01/15/15 3:22 PM) Lymphocytes # [1.0-5.5 K/CMM] 5.8 K/CMM *HI* (01/15/15 3:22 PM) Monocytes # [0.0-0.8 K/CMM] 0.5 K/CMM (01/15/15 3:22 PM) Eosinophils # [0.0-0.5 K/CMM] 0.3 K/CMM (01/15/15 3:22 PM) RBC Morph Normal (01/15/15 3:22 PM) Plt Morph Normal (01/15/15 3:22 PM) PT [12.0-14.7 seconds] 13.8 seconds (01/15/15 3:22 PM) INR [0.85-1.17] 1.06 3 (01/15/15 3:22 PM) PTT [22.9-35.8 seconds] 32.8 seconds 4 (01/15/15 3:22 PM) 3Interpretive Data: RECOMMENDED RANGES FOR PROTIME INR: 2.0-3.0 for most medical and surgical thromboembolic states. 2.5-3.5 for artificial heart valves and recurrent embolism. INR SHOULD BE USED ONLY FOR PATIENTS ON STABLE ANTICOAGULANT THERAPY.4Interpretive Data: Heparin Therapeutic Range: 57 - 92 Seconds Immunizations No data available for this section Procedures Procedure Date Related Diagnosis Body Site Abdominal hysterectomy1 CTR - Carpal tunnel release2 Ligament repair3 Miscellaneous operations4 1AGE [id number] Social History Social History Type Response Smoking Status Current every day smoker; Type: Cigarettes; Tobacco use per day : 25; Number of years: 40; Started at age: 13.0; Previous treatment: None; Ready to change: No; Concerns about tobacco use in household: No; Exposure to Tobacco Smoke None; Cigarette Smoking Last 365 Days Yes; Reg Smoking Cessation Counseling No Assessment and Plan Extracted from: Title: Discharge Summary * Laminectomy Author: Cinthya Koehler Date : 01/22/15 female Discharge Information She was then discharged with the instruction she is not to lift anything heavier than 10 to 15 pounds for 6 weeks postop. The patient is to do activity as tolerated. She is to keep her incision clean a nd dry. The patient is also not to use pain medication while driving. She is aware she is to [facility]. Her incision was clean and dry with dermabond. The patient may eat a carbohydrate controlled/low sodium diet as tolerated. Discharge Plan Discharge Summary Plan Discharge Status: improved. Discharge instructions given: to patient, written discharge instructions ( activity level, diet, follow-up appointment, medications, symptoms worsening). Discharge disposition: discharge to home into the care of family member. Prescriptions: reviewed with patient, called to pharmacy. Course Improving. Education and Follow-up Counseled: patient, family. Extracted from: Title: Progress Note *- Lumbar lami Author: Cinthya Koehler Date: POD#1 Impression and Plan Diagnosis: Lumbar stenosis (ICD9 724.02, Working, Medical), Lumbar radiculopathy (ICD9 724.4, Working, Medical), POD #1 s/p Left L5-S1 hemilaminectomies/foraminomy/ left L5-S1 diskectomy performed on 01/21/15. Course: Improving. Orders 1.Discharge instructions given. 2. D/C pt home today . 3. Case discussed with Dr. Gurrola who agrees with the above plan of care . Education and Follow-up: Counseled: Patient, Family, Regarding diagnosis, Regarding treatment, Regarding medications. Discharge Planning: Plan to discharge ( To home, In today days ). Ready for D/C: Yes.
--- OUTSIDE RECORDS SUMMARY | 2018-10-03 23:34 | XMS REPORT | Summary of Care ---
:1960 Author Organization [facility] Address [address] [place] [phone] Encounter [facility] [place](FIN) [id number] Date(s): 05/01/15 - 05/01/[address] [address] [place] Discharge Disposition: Home Attending Physician: Physician, Non Associated MD Referring Physician: Cinthya Koehler Vital Signs No data available for this section Problem List Condition Effective Dates Status Health Status Informant Calcaneal spur(Confirmed)1 Active Depression(Confirmed) Active Disorder of lumbar disc(Confirmed)2 Active DM - Diabetes mellitus(Confirmed) Active Fatty liver(Confirmed) Active Fibromyalgia(Confirmed) Active Hypercholesterolemia(Confirmed) Active Hypertension(Confirmed) Active Hypothyroidism(Confirmed) Active Low back pain3 12/13/14 Active Lumbar radiculopathy4 12/13/14 Active Osteoarthritis(Confirmed) Active Spinal stenosis of lumbar region5 12/13/14 Active Travel abroad(Confirmed)6 Resolved [id number] migrated from [employer] on 03/12/15.4Data migrated from [employer] on 03/12/15.5Data migrated from [employer] on 03/12/15.6HAS NOT TRAVELLED OUTSIDE OF [facility] IN THE LAST 30 DAYS Allergies, Adverse Reactions, Alerts Substance Reaction Severity Status predniSONE1 Active 1Data migrated from [employer] on 03/11/15. Originally documented as PREDNISONE. Medications No data available for this section Results CHEM PANEL Most recent to oldest [Reference Range]: 1 eGFR 83 mL/min/1.73m2 1 *NA* (05/01/15 5:53 PM) POC Creatinine [0.5-1.4 mg/dL] 0.8 mg/dL (05/01/15 5:53 PM) 1Result Comment: The eGFR is calculated [...] should be multiplied by the estimated BMI. Immunizations No data available for this section Procedures Procedure Date Related Diagnosis Body Site Abdominal hysterectomy1 CTR - Carpal tunnel release2 Ligament repair3 Miscellaneous operations4 1AGE [id number] Social History Social History Type Response Smoking Status Current every day smoker; Type: Cigarettes; Tobacco use per day : 25; Number of years: 40; Started at age: 13.0; Previous treatment: None; Ready to change: No; Concerns about tobacco use in household: No; Exposure to Tobacco Smoke None; Cigarette Smoking Last 365 Days Yes; Reg Smoking Cessation Counseling No Assessment and Plan No data available for this section
--- NOTE | 2018-10-04 00:10 | EDPHYS ---
Physician Documentation [facility] Name: Saba Ahumada Age: 57 yrs Sex: Female : 1960 Arrival Date: 10/03/2018 Time: 23:31 Bed 5 Private MD: ED Physician Blair Lopez HPI: 10/04 00:07 This 57 yrs old Female presents to ER via Ambulatory with complaints of Sinus gs Congestion. 00:07 Onset: The symptoms/episode began/occurred 1 week(s) ago, and became persistent. gs Severity of symptoms: At their worst the symptoms were moderate, in the emergency department the symptoms are unchanged. Modifying factors: The symptoms are alleviated by nothing, the symptoms are aggravated by cold weather. Associated signs and symptoms: Pertinent positives: earache, Pertinent negatives: fever. The patient has experienced similar episodes in the past, a few times. The patient has not recently seen a physician. Historical: - Allergies: 00:01 Prednisone; lp1 - Home Meds: 00:01 atorvastatin 80 mg Oral tab 1 tab once daily [Active]; amitriptyline 50 mg Oral tab 1 lp1 tab once daily [Active]; alprazolam 0.5 mg Oral Tb24 1 tab once daily [Active]; baclofen 10 mg Oral tab 1 tab twice a day [Active]; diazepam 5 mg Oral tab 1 tab nightly [Active]; glimepiride 4 mg Oral tab 1 tab once daily [Active]; Januvia 100 mg Oral tab 1 tab once daily [Active]; metformin 500 mg Oral tab 1 tab 2 times per day [Active]; Synthroid 88 mcg Oral tab 1 tab once daily [Active]; Levemir 100 unit/mL subcutaneous soln 50 unit daily [Active]; lisinopril-hydrochlorothiazide 20-25 mg oral tab 1 tab once daily [Active]; Vitamin D2 50,000 unit oral cap 1 cap once wkly [Active]; - PMHx: 00:01 Anxiety; Cirrhosis; Diabetes - IDDM; Fibromyalgia; Hypertension; Hypothyroidism; lp1 - PSHx: 00:01 Wrist sx; Foot sx; Hysterectomy; lp1 - Immunization history:: Adult Immunizations up to date. - Social history:: Smoking status: Patient uses tobacco products, smokes one-half pack cigarettes per day. - Ebola Screening: : No symptoms or risks identified at this time. ROS: 00:07 All other systems are negative. gs Exam: 00:07 Eyes: Pupils equal round and reactive to light, extra-ocular motions intact. Lids and gs lashes normal. Conjunctiva and sclera are non-icteric and not injected. Cornea within normal limits. Periorbital areas with no swelling, redness, or edema. ENT: Nares patent. No nasal discharge, no septal abnormalities noted. Tympanic membranes are normal and external auditory canals are clear. Oropharynx with no redness, swelling, or masses, exudates, or evidence of obstruction, uvula midline. Mucous membranes moist. Neck: Trachea midline, no thyromegaly or masses palpated, and no cervical lymphadenopathy. Supple, full range of motion without nuchal rigidity, or vertebral point tenderness. No Meningismus. Chest/axilla: Normal chest wall appearance and motion. Nontender with no deformity. No lesions are appreciated. Cardiovascular: Regular rate and rhythm with a normal S1 and S2. No gallops, murmurs, or rubs. Normal PMI, no JVD. No pulse deficits. Respiratory: Lungs have equal breath sounds bilaterally, clear to auscultation and percussion. No rales, rhonchi or wheezes noted. No increased work of breathing, no retractions or nasal flaring. Abdomen/GI: Soft, non-tender, with normal bowel sounds. No distension or tympany. No guarding or rebound. No evidence of tenderness throughout. Back: No spinal tenderness. No costovertebral tenderness. Full range of motion. Skin: Warm, dry with normal turgor. Normal color with no rashes, no lesions, and no evidence of cellulitis. MS/ Extremity: Pulses equal, no cyanosis. Neurovascular intact. Full, normal range of motion. Neuro: Awake and alert, GCS 15, oriented to person, place, time, and situation. Cranial nerves II-XII grossly intact. Motor strength 5/5 in all extremities. Sensory grossly intact. Cerebellar exam normal. Normal gait. 00:07 Constitutional: The patient appears alert, awake. 00:07 Head/face: Sinus tenderness, that is moderate, is located over the right maxillary sinus and left maxillary sinus. Vital Signs: 10/03 23:49 BP 154 / 73; Pulse 97; Resp 18; Temp 98.4(O); Pulse Ox 99% on R/A; Weight 68.04 kg; lp1 Height 5 ft. 5 in. (165.10 cm); Pain 10/10; 23:49 Body Mass Index 24.96 (68.04 kg, 165.10 cm) lp1 MDM: 10/04 00:01 Patient medically screened. gs 00:07 Differential Diagnosis: Bronchitis Upper Respiratory Infection Sinusitis. Data gs reviewed: vital signs, nurses notes. Counseling: I had a detailed discussion with the patient and/or guardian regarding: the historical points, exam findings, and any diagnostic results supporting the discharge/admit diagnosis. Response to treatment: the patient's symptoms have mildly improved after treatment. Administered Medications: No medications were administered Disposition: 10/04/18 00:09 Discharged to Home. Impression: Acute maxillary sinusitis. - Condition is Stable. - Discharge Instructions: Sinusitis, Adult. - Prescriptions for Ceftin 250 mg Oral Tablet - take 1 tablet by ORAL route every 12 hours for 10 days; 20 tablet. - Medication Reconciliation Form, Thank You Letter, Antibiotic Education, Prescription Opioid Use form. - Follow up: Private Physician; When: 2 - 3 days; Reason: Re-evaluation by your physician. Signatures: Dayna Todd RN RN 1 Blair Lopez MD MD Corrections: (The following items were deleted from the chart) 00:19 00:09 10/04/2018 00:09 Discharged to Home. Impression: Acute maxillary sinusitis. lp1 Condition is Stable. Forms are Medication Reconciliation Form, Thank You Letter, Antibiotic Education, Prescription Opioid Use. Follow up: Private Physician; When: 2 - 3 days; Reason: Re-evaluation by your physician. gs
--- NOTE | 2018-10-04 00:10 | ER ---
Nurse's Notes [facility] Name: Saba Ahumada Age: 57 yrs Sex: Female : 1960 Arrival Date: 10/03/2018 Time: 23:31 Bed 5 Private MD: Diagnosis: Acute maxillary sinusitis Presentation: 10/03 23:47 Presenting complaint: Patient states: Sinus pressure, head pressure radiating to ears lp1 and lower jaw x 2 days; Patient states dizziness on fast movement of head; Denies any fever;. Transition of care: patient was not received from another setting of care. Onset of symptoms was October 03, 2018. Risk Assessment: Do you want to hurt yourself or someone else? Patient reports no desire to harm self or others. Initial Sepsis Screen: Does the patient meet any 2 criteria? No. Patient's initial sepsis screen is negative. Does the patient have a suspected source of infection? No. Patient's initial sepsis screen is negative. Care prior to arrival: None. 23:47 Method Of Arrival: Ambulatory lp1 23:47 Acuity: NAYLA 4 lp1 Historical: - Allergies: 10/04 00:01 Prednisone; lp1 - Home Meds: 00:01 atorvastatin 80 mg Oral tab 1 tab once daily [Active]; amitriptyline 50 mg Oral tab 1 lp1 tab once daily [Active]; alprazolam 0.5 mg Oral Tb24 1 tab once daily [Active]; baclofen 10 mg Oral tab 1 tab twice a day [Active]; diazepam 5 mg Oral tab 1 tab nightly [Active]; glimepiride 4 mg Oral tab 1 tab once daily [Active]; Januvia 100 mg Oral tab 1 tab once daily [Active]; metformin 500 mg Oral tab 1 tab 2 times per day [Active]; Synthroid 88 mcg Oral tab 1 tab once daily [Active]; Levemir 100 unit/mL subcutaneous soln 50 unit daily [Active]; lisinopril-hydrochlorothiazide 20-25 mg oral tab 1 tab once daily [Active]; Vitamin D2 50,000 unit oral cap 1 cap once wkly [Active]; - PMHx: 00:01 Anxiety; Cirrhosis; Diabetes - IDDM; Fibromyalgia; Hypertension; Hypothyroidism; lp1 - PSHx: 00:01 Wrist sx; Foot sx; Hysterectomy; lp1 - Immunization history:: Adult Immunizations up to date. - Social history:: Smoking status: Patient uses tobacco products, smokes one-half pack cigarettes per day. - Ebola Screening: : No symptoms or risks identified at this time. Screenin:08 Abuse screen: Denies threats or abuse. Denies injuries from another. Nutritional lp1 screening: No deficits noted. Tuberculosis screening: No symptoms or risk factors identified. Fall Risk None identified. Assessment: 00:04 General: Appears in no apparent distress. uncomfortable, Behavior is appropriate for lp1 age. Pain: Complains of pain in face, right ear and left ear Pain currently is 10 out of 10 on a pain scale. Neuro: Level of Consciousness is awake, alert, obeys commands, Reports headache. Cardiovascular: Patient's skin is warm and dry. Respiratory: Respiratory effort is even, unlabored, Respiratory pattern is regular, Breath sounds are clear bilaterally. GI: No signs and/or symptoms were reported involving the gastrointestinal system. : No signs and/or symptoms were reported regarding the genitourinary system. EENT: Reports nasal congestion. Derm: Skin is pink, warm \T\ dry. Musculoskeletal: Circulation, motion, and sensation intact. Vital Signs: 03 23:49 BP 154 / 73; Pulse 97; Resp 18; Temp 98.4(O); Pulse Ox 99% on R/A; Weight 68.04 kg; lp1 Height 5 ft. 5 in. (165.10 cm); Pain 10/10; 23:49 Body Mass Index 24.96 (68.04 kg, 165.10 cm) lp1 ED Course: 23:31 Patient arrived in ED. es 23:39 Dayna Todd, RANDALL is Primary Nurse. lp1 23:48 Bliar Lopez MD is Attending Physician. gs 23:49 Triage completed. lp1 23:49 Arm band placed on left wrist. lp1 10/04 00:08 Patient has correct armband on for positive identification. lp1 00:08 No provider procedures requiring assistance completed. Patient did not have IV access lp1 during this emergency room visit. Administered Medications: No medications were administered Outcome: 00:09 Discharge ordered by . gs 00:19 Discharged to home ambulatory, with significant other. lp1 00:19 Condition: good 00:19 Discharge instructions given to patient, Instructed on discharge instructions, follow up and referral plans. medication usage, Demonstrated understanding of instructions, follow-up care, medications, Prescriptions given X 1. 00:19 Patient left the ED. lp1 Signatures: Irasema Aguirre Laura, RN RN lp1 Blair Lopez MD MD
[2018-10-04 01:00] VITALS: BP 154/73; TEMP 98.4; O2SAT 99
== END 2018-10-04 00:19 | disposition home or self-care (01) ==
LOC: ER 23:26
DX: J01.00 Acute maxillary sinusitis, unspecified (principal); Z88.8 Allergy status to other drugs, medicaments and biological substances; E03.9 Hypothyroidism, unspecified; I10 Essential (primary) hypertension; F41.9 Anxiety disorder, unspecified; Z72.0 Tobacco use; F17.210 Nicotine dependence, cigarettes, uncomplicated
CPT/HCPCS: 99282

== ENCOUNTER 2018-10-11 02:16 | Emergency (ER) | payer SELFPAY ==
--- OUTSIDE RECORDS SUMMARY | 2018-10-11 02:18 | XMS REPORT | Clinical Summary ---
:1960 Author Organization [facility] Address [address] [place] [address] Care Team Providers Name Role Phone Asked, [...] current use of insulin; Tobacco abuse after 10/10/2017 Social History Tobacco Use Types Packs/Day Years [...] procedure are in the results section. after 10/10/2017 Results CBC with platelet and differential (11/28/2017 12:44 AM CDT) WBC 8.33 4.50 - 11.00 k/uL [facility] DEPARTMENT OF PATHOLOGY AND GENOMIC MEDICINE RBC 4.28 4.20 - 5.50 m/uL [facility] DEPARTMENT OF PATHOLOGY AND GENOMIC MEDICINE HGB 13.8 12.0 - 16.0 g/dL [facility] DEPARTMENT OF PATHOLOGY AND GENOMIC MEDICINE HCT 40.1 37.0 - 47.0 % [facility] DEPARTMENT OF PATHOLOGY AND GENOMIC MEDICINE MCV 93.7 82.0 - 100.0 fL [facility] DEPARTMENT OF PATHOLOGY AND GENOMIC MEDICINE MCH 32.2 27.0 - 34.0 pg [facility] DEPARTMENT OF PATHOLOGY AND GENOMIC MEDICINE MCHC 34.4 31.0 - 37.0 g/dL [facility] DEPARTMENT OF PATHOLOGY AND GENOMIC MEDICINE RDW - SD 42.4 37.0 - 55.0 fL [facility] DEPARTMENT OF PATHOLOGY AND GENOMIC MEDICINE MPV 10.9 8.8 - 13.2 fL [facility] DEPARTMENT OF PATHOLOGY AND GENOMIC MEDICINE Platelet count 89 (L) 150 - 400 k/uL [facility] DEPARTMENT OF PATHOLOGY AND GENOMIC MEDICINE Nucleated RBC 0.00 /100 WBC [facility] DEPARTMENT OF PATHOLOGY AND GENOMIC MEDICINE Neutrophils 36.5 (L) 39.0 - 69.0 % [facility] DEPARTMENT OF PATHOLOGY AND GENOMIC MEDICINE Lymphocytes 55.5 (H) 25.0 - 45.0 % [facility] DEPARTMENT OF PATHOLOGY AND GENOMIC MEDICINE Monocytes 5.2 0.0 - 10.0 % [facility] DEPARTMENT OF PATHOLOGY AND GENOMIC MEDICINE Eosinophils 2.3 0.0 - 5.0 % [facility] DEPARTMENT OF PATHOLOGY AND GENOMIC MEDICINE Basophils 0.4 0.0 - 1.0 % [facility] DEPARTMENT OF PATHOLOGY AND GENOMIC MEDICINE Immature granulocytes 0.1Comment: 0.0 - 1.0 % [facility] DEPARTMENT OF "Immature PATHOLOGY AND GENOMIC granulocytes" MEDICINE (promyelocytes, myelocytes, metamyelocytes) Specimen Blood Performing Organization Address City/State/Zipcode Phone Number [facility] DEPARTMENT OF PATHOLOGY AND [address] [place] [address] GENOMIC MEDICINE after 10/10/2017 Insurance Payer Benefit Plan / Group Subscriber ID Type Phone Address [facility] xxxxxxxxxxxx PPO Advance Directives Patient has advance care planning documents on file. For more information, please contact:Favian [id number] [place] [address]
--- OUTSIDE RECORDS SUMMARY | 2018-10-11 02:19 | XMS REPORT | Continuity of Care Document ---
:1960 Author Organization Interface Problems Problem Status Onset Classification Date Comments Source Date Reported LUMBAR RADICULOPATHY Active [address] [phone],[id number] Active [address] [place] HISTORY OF ARTHRITIS Active [...] 5 Neuro Low back Active Problem Data [facility] pain<sup>3</sup> 015 5 migrated Medical from [facility] on 03/12/15. Lumbar Active Problem Data [facility] radiculopathy<sup>4</s 015 5 migrated Medical up> from [facility] on 03/12/15. Spinal stenosis of Active Problem Data [facility] lumbar 015 5 migrated Medical region<sup>5</sup> from [facility] on 03/12/15. Calcaneal Active Problem LEFT [facility] spur<sup>1</sup> [address] [place] [address],[facility] Depression Active Problem [address],[facility] Disorder of lumbar Active Problem HERNIATED [facility] disc<sup>2</sup> [address] [place] [address],[facility] DM - Diabetes mellitus Active Problem [address],[facility] Fatty liver Active Problem [address],[facility] Fibromyalgia Active Problem [address],[facility] Hypercholesterolemia Active Problem [address],[facility] Hypertension Active Problem [address],[facility] Hypothyroidism Active Problem [address],[facility] Osteoarthritis Active Problem [address],[facility] Travel Resolved Problem HAS NOT [facility] abroad<sup>6</sup> 5 TRAVELLED Medical OUTSIDE OF [facility] IN THE LAST 30 DAYS Travel Resolved Problem 3HAS NOT abroad<sup>3</sup> 5 TRAVELLED [facility] OUTSIDE OF [facility] IN THE LAST 30 DAYS LUMBAR DISC Active DISPLACEMENT [facility] Medications Medication Details Route Status Patient Ordering Order Source Instructions Provider Date multivitamin 1 tab, Route: No Longer PO, Dosing Active 2014 [facility] Weight 70.909, kg, Daily, Start date: 01/22/15 9:00:00, Duration: 30 day, Stop date: 02/20/15 9:00:00 glimepiride 4 mg, 2 tab, Inactive Route: PO, 2014 [facility] Drug form: TAB, Breakfast, Dosing Weight 70.909, kg, Start date: 01/22/15 8:00:00, Duration: 30 day, Stop date: 02/20/15 8:00:00Notes: (Same as: Amaryl) heparin 5,000 unit, 1 Inactive mL, Route: 2014 [facility] SUB-Q, Drug form: INJ, Q12H, Dosing Weight 70.909, kg, Start date: 01/22/15 6:00:00, Duration: 30 day, Stop date: 02/20/15 18:00:00Notes: porcine heparin Insulin, Aspart, 2 unit, 0.02 No Longer Human mL, Route: Active 2014 [facility] SUB-Q, Drug form: SOLN, TID-Before Meals, Dosing [...] No Longer Syringe Route: IVP, Active 2014 [facility] Drug Form: INJ, Dosing Weight 70.909, kg, PRN, PRN Blood Glucose Results, Start date: 01/21/15 23:21:00, Duration: 30 day, Stop date: 02/20/15 23:20:00 Glucagon 1 mg, Route: No Longer IM, Drug form: Active 2014 [facility] PDR/INJ, PRN, Dosing Weight 70.909, kg, PRN Blood Glucose Results, Start date: 01/21/15 23:21:00, Duration: 30 day, Stop date: 02/20/15 23:20:00 Glucagon 1 mg, Route: Inactive IM, Drug form: 2014 [facility] PDR/INJ, PRN, Dosing Weight 70.909, kg, PRN Blood Glucose Results, Start date: 01/21/15 23:17:00, Duration: 30 day, Stop date: 02/20/15 23:16:00 Dextrose 50% 12.5 gm, 25 Inactive Syringe mL, Route: 2014 [facility] IVP, Drug Form: INJ, Dosing Weight 70.909, [...] tab, No Longer Route: PO, Active 2014 [facility] Drug form: ECTAB, Before Dinner, Dosing Weight 70.909, kg, Start date: 01/21/15 16:30:00, Duration: 30 day, Stop date: 02/19/15 16:30:00Notes: Tablet should not be chewed or crushed. (Same as: Protonix) ceFAZolin (SCIP) + 1 gm, Route: No Longer Sodium Chloride IVPB, Q8H, Active 2014 [facility] 0.9% IV 100 mL Dosing Weight 70.909, kg, Start date: 01/21/15 16:00:00, Duration: 2 doses or times, Stop date: 01/22/15 0:00:00Notes: (Same As: Molly Crocker) MEDICATION WASTE Product Size: 1000 mg Product Wasted: ___ mg Januvia 100 mg, 1 tab, No Longer Route: PO, 2014 [facility] Drug form: TAB, Daily, Dosing Weight 70.909, kg, Start date: 01/21/15 12:00:00, Duration: 30 day, Stop date: 02/20/15 9:00:00Notes: (Same as: Januvia) potassium chloride 10 mEq, 1 tab, No Longer Route: PO, Active 2014 [facility] Drug form: ERTAB, Daily, Dosing Weight 70.909, kg, Start date: 01/21/15 12:00:00, Duration: 30 day, Stop date: 02/20/15 9:00:00Notes: (Same as: K-Dur 10) "Do Not Crush" With food and full glass of water Hydrochlorothiazid 2 tab, Route: No Longer e 25 MG / PO, Drug Form: Active 2014 [facility] Lisinopril 20 MG TAB, Dosing Oral Tablet Weight 70.909, kg, Daily, Start date: 01/21/15 12:00:00, Duration: 30 day, Stop date: 02/20/15 9:00:00Notes: Non-formulary drug. (lisinopril-hy drochlorothiaz lori 10-12.5 mg TAB) (Same as: Prinzide, Zestoretic) multivitamin with 1 tab, Route: No Longer minerals PO, Drug Form: Active 2014 [facility] TAB, Daily, Start date: 01/21/15 12:00:00, Duration: 30 day, Stop date: 02/20/15 9:00:00Notes: Give with food. (Same As: Stress 600 with Zinc) Zofran 4 mg, 2 mL, No Longer Route: IVP, Active 2014 [facility] Drug form: INJ, Q4H, Dosing Weight 70.909, kg, PRN Other -See Comment, If N/V refractory to first dose of Zofran IVP, patient may receive an additional 4mg IVP dose of Zofran per Dr. Gurrola, Start date: 01/21/15 11:27:00, Durati...Notes : (Same as: Zofran) MEDICATION WASTE Product Size: 4 mg Product Wasted: ___ mg Synthroid 88 microgram, No Longer 1 tab, Route: Active 2014 [facility] PO, Drug form: TAB, Daily, Dosing Weight 70.909, kg, Start date: 01/21/15 11:00:00, Duration: 30 day, Stop date: 02/20/15 9:00:00Notes: Take 1 hour before or 2 hours after meal; Enteral feeds may interefere with the absorption of this medication. (Same as:Synthroid) Insulin, Aspart, 1 unit, 0.01 Inactive Human mL, Route: 2014 [facility] SUB-Q, Drug form: SOLN, TID-Before Meals, Dosing Weight 70.909, kg, PRN Blood Glucose Results, Start date: 01/21/15 10:54:00, Duration: 30 day, Stop date: 02/20/15 10:53:00Notes: Roll in palms of hands gently; Do not shake vigorously. (Same as: NovoLOG) "single patient use only" Stable for 28 days at room temperature. Expires in days from Date Glucagon 1 mg, Route: Inactive IM, Drug form: 2014 [facility] PDR/INJ, PRN, Dosing Weight 70.909, kg, PRN Blood Glucose Results, Start date: 01/21/15 10:54:00, Duration: 30 day, Stop date: 02/20/15 10:53:00 Dextrose 50% 12.5 gm, 25 Inactive MH Syringe mL, Route: 2014 [facility] IVP, Drug Form: INJ, Dosing Weight 70.909, kg, PRN, PRN Blood Glucose Results, Start date: 01/21/15 10:54:00, Duration: 30 day, Stop date: 02/20/15 10:53:00 Docusate Sodium 100 mg=1 cap, Active MH 100 MG Oral PO, BID, # 90 2014 [facility] Capsule [Colace] cap, 1 Refill(s) Diazepam 5 MG Oral 1-2, PO, Q4H, Active Tablet [Valium] PRN as needed 2014 [facility] for muscle spasms, # 30 tab, 4 Refill(s) tramadol 50 mg=1 tab, Active hydrochloride 50 PO, Q6H, PRN 2014 [facility] MG Oral Tablet as needed for [Ultram] pain, # 30 tab, 0 Refill(s) Dilaudid 0.5 mg, 0.5 Inactive MH mL, Route: IV, 2014 [facility] Drug form: INJ, Q5Min, Dosing Weight 70.909, kg, PRN Pain Score 7-10, Start date: 01/21/15 10:47:00, Duration: 4 doses or times, Stop date: 01/21/15 20:00:00Notes: Same as: Dilaudid Phenergan 12.5 mg, 0.5 Inactive MH mL, Route: IM, 2014 [facility] Drug form: INJ, ONCE, Dosing Weight 70.909, kg, PRN Nausea, Start date: 01/21/15 10:47:00Notes: Do not give IV push. (Same as: Phenergan) Meperidine 12.5 mg, 0.5 Inactive 01/21/ MH mL, Route: 2014 [facility] IVP, Drug form: INJ, Q5Min, Dosing Weight 70.909, kg, PRN Pain Score 4-6, Start date: 01/21/15 10:47:00, Duration: 4 doses or times, Stop date: 01/21/15 20:00:00Notes: (Same as: Demerol) "Use Precaution in Elderly, Seizure disorders, and Renal impairment" Acetaminophen 1,000 mg, 100 Inactive mL, Route: 2014 [facility] IVPB, Drug form: INJ, ONCE, Dosing Weight 70.909, kg, PRN Pain Score 1-3, Start date: 01/21/15 10:47:00, Duration: 1 doses or times, Stop date: Limited # of timesNotes: Infuse over 15 minutes Do not exceed 4gm/day of acetaminophen MEDICATION WASTE Product Size: 1000 mg Product Wasted: ___ mg Metoprolol 1 mg, 1 mL, Inactive Route: IVP2014 [facility] Drug form: INJ, Q5Min, Dosing Weight 70.909, kg, PRN Other -See Comment, Start date: 01/21/15 10:47:00, Duration: 5 doses or times, Stop date: 01/21/15 20:00:00Notes: (Same as: Lopressor) Push over 2 minutes Labetalol 10 mg, 2 mL, Inactive Route: IVP2014 [facility] Drug form: INJ, Q5Min, Dosing Weight 70.909, kg, PRN Elevated BP, Start date: 01/21/15 10:47:00, Duration: 5 doses or times, Stop date: 01/21/15 20:00:00Notes: (Same as: Normodyne, Trandate) Push over 2 minutes Give bolus over 2-3 minutes. Ketorolac 30 mg, 1 mL, Inactive Route: IVP2014 [facility] Drug form: INJ, ONCE, Dosing Weight 70.909, kg, Start date: 01/21/15 10:47:00, Duration: 1 doses or times, Stop date: 01/21/15 10:47:00Notes: (Same as:Toradol) IV bolus must be given >15 seconds. Give IM administration slowly and deeply into the muscle. Not for use > 4 days MEDICATION WASTE Product Size: 30 mg Product Wasted: ___ mg Hydralazine 10 mg, 0.5 mL, Inactive Route: IVP2014 [facility] Drug form: INJ, Q20Min, Dosing Weight 70.909, kg, PRN Elevated BP, Start date: 01/21/15 10:47:00, Duration: 2 doses or times, Stop date: 01/21/15 20:00:00Notes: (Same as: Apresoline) Push over 5 minutes Ondansetron 4 mg, 2 mL, Inactive Route: IVP2014 [facility] Drug form: INJ, ONCE, Dosing Weight 70.909, kg, PRN Nausea & Vomiting, Start date: 01/21/15 10:47:00Notes: (Same as: Meliton) MEDICATION WASTE Product Size: 4 mg Product Wasted: ___ mg Morphine 2 mg, 1 mL, Inactive Route: IVP2014 [facility] Drug form: INJ, Q5Min, Dosing Weight 70.909, kg, PRN Pain Score 4-6, Start date: 01/21/15 10:47:00, Duration: 5 doses or times, Stop date: Limited # of timesNotes: (Same as:MORPhine Sulfate) Hydromorphone 0.5 mg, 0.5 Inactive mL, Route: 2014 [facility] IVP, Drug form: INJ, Q5Min, Dosing Weight 70.909, kg, PRN Pain Score 7-10, Start date: 01/21/15 10:47:00, Duration: 4 doses or times, Stop date: 01/21/15 20:00:00Notes: Same as: Dilaudid Naloxone 0.04 mg, 0.1 Inactive mL, Route: 2014 [facility] IVP, Drug form: INJ, Q2MIN, Dosing Weight 70.909, kg, PRN Narcotic Reversal, Start date: 01/21/15 10:47:00, Duration: 8 doses or times, Stop date: 01/21/15 20:00:00Notes: Same as Narcan Flumazenil 0.2 mg, 2 mL, Inactive Route: IVP2014 [facility] Drug form: INJ, PRN, Dosing Weight 70.909, kg, PRN Benzodiazepine Reversal, Initial dose, Start date: 01/21/15 10:47:00, Stop date: 01/21/15 20:00:00Notes: (Same as: Romazicon) Diazepam 10 mg, 2 tab, No Longer Route: PO, Active 2014 [facility] Drug form: TAB, Q4H, Dosing Weight 70.909, kg, PRN Other -See Comment, Start date: 01/21/15 10:38:00, Duration: 7 day, Stop date: 01/28/15 10:37:00, severe muscle spasmsNotes: (Same as: Valium) Acetaminophen 650 mg, 2 tab, No Longer Route: PO, Active 2014 [facility] Drug form: TAB, Q4H, Dosing Weight 70.909, kg, PRN Pain 1-3/Temp > 100.4 F, Start date: 01/21/15 10:38:00, Duration: 30 day, Stop date: 02/20/15 10:37:00Notes: Do not exceed 4 gm/day. (Same as: Tylenol) Hydromorphone 4 mg, 2 tab, No Longer Route: PO, Active 2014 [facility] Drug form: TAB, Q4H, Dosing Weight 70.909, kg, PRN Other -See Comment, Start date: 01/21/15 10:38:00, Duration: 3 day, Stop date: 01/24/15 10:37:00Notes: (Same as: Dilaudid) Reglan 10 mg, 1 tab, No Longer Route: PO, Active 2014 [facility] Drug form: TAB, BID, Dosing Weight 70.909, kg, PRN Other -See Comment, Start date: 01/21/15 10:38:00, Duration: 30 day, Stop date: 02/20/15 10:37:00, nausea or vomiting if patient refractory to ondansetronNot es: (Same as: Reglan) Take 30 min before meals Zofran 4 mg, 2 mL, No Longer Route: IVP, Active 2014 [facility] Drug form: INJ, Q4H, Dosing Weight 70.909, kg, PRN Nausea, Start date: 01/21/15 10:38:00, Duration: 30 day, Stop date: 02/20/15 10:37:00Notes: (Same as: Zofran) MEDICATION WASTE Product Size: 4 mg Product Wasted: ___ mg Phenergan 25 mg, 50 mL, No Longer Route: IVP Active 2014 [facility], Drug form: SOLN, Q4H, Dosing Weight 70.909, kg, PRN Nausea & Vomiting, If N/V refractory to Zofran and Reglan,patient may receive Phenergan IVP per Dr. Gurrola, Start date: 01/21/15 10:38:00, Duration: 30 day, Stop date... LR IV 500 mL 500 mL, Rate: No Longer 125 ml/hr, Active 2014 [facility] Infuse over: 4 hr, Route: IV, Dosing Weight 70.909 kg, Total Volume: 500, Start date: 01/21/15 10:38:00, Duration: 30 day, Stop date: 02/20/15 10:37:00 Sodium Chloride 250 mL, Rate: Inactive 0.154 MEQ/ML 25 ml/hr, 2014 [facility] Injectable Infuse over: Solution 10 hr, Route: IV, Dosing Weight 70.909 kg, Total Volume: 250, Start date: 01/21/15 7:50:00, Duration: 1 doses or times, Stop date: 01/21/15 17:49:00 naloxegol 25 MG 25 mg=1 tab, Active Oral Tablet PO, QAM, 0 2014 [facility] [Movantik] Refill(s) Lidocaine 0.1 mL, Route: Inactive Hydrochloride 10 INTRADERM, [facility] [place] [facility]/ML Injectable Drug form: Solution INJ, PRE OP, [Xylocaine] Dosing Weight 70.909, kg, Start date: 01/21/15 6:00:00, Duration: 30 day, Stop date: 02/20/15 5:59:00Notes: Preservative free. (Same as: Xylocaine MPF) Lactated Ringers 1,000 mL, No Longer IV 1,000 mL Rate: 100 Active 2014 [facility] ml/hr, Infuse over: 10 hr, Route: IV, Dosing Weight 70.909 kg, Total Volume: 1,000, Start date: 01/21/15 5:31:00, Duration: 30 day, Stop date: 02/20/15 5:30:00 ceFAZolin 2 gm, 50 mL, Inactive Route: IVPB, 2014 [facility] Drug form: INJ, PRE OP, Start date: 01/21/15 5:00:00, Duration: 1 doses or times ULTRAM 50 MG TABS 1 tablet every Active [facility] 6 hours as 2014 [facility] needed for severe pain VALIUM 5 MG TABS one to two Active [facility] tabs PO 2014 [facility] Q4-6hrs prn muscle spasms COLACE 100 MG CAPS Take one Active cher capsule by 2014 [facility] mouth twice a day potassium chloride 10 mEq, PO, Active Daily, 0 2014 [facility] Refill(s) Fish Oil 1,000 mg, PO, No Longer 2 X WEEK, 0 Active 2014 [facility] Refill(s)Speci al Instructions: 2 X WEEK multivitamin 1 tab, PO, Active Daily, 0 2014 [facility] Refill(s) atorvastatin 80 mg 80 mg=1 tab, Active oral tablet PO, Daily, # 2014 [facility] 90 tab, 3 Refill(s) Metformin 1,000 mg=2 Active hydrochloride 500 tab, PO, BID, 2014 [facility] Oral Tablet 0 Refill(s) glimepiride 4 mg 4 mg=1 tab, Active oral tablet PO, Breakfast, 2014 [facility] # 30 tab, 0 Refill(s) sitagliptin 100 MG 100 mg=1 tab, Active Oral Tablet PO, Daily, # 2014 [facility] [Januvia] 30 tab, 0 Refill(s) Vitamin D3 5000 5,000 Active intl units oral IntlUnit=1 2014 [facility] tablet tab, PO, 2 X WEEK, 0 Refill(s)Speci al Instructions: 2 X WEEK Hydrochlorothiazid 1 tab, PO, Active e 25 MG / Daily, # 30 2014 [facility] Lisinopril 20 MG tab, 0 Oral Tablet [...] 2014 disintegrating Refill(s) ALPRAZOLAM ER 0.5 Active [facility] MG [id number] 2014 [facility] SYNTHROID 100 MCG Active [facility] TABS 2014 [facility]S 2014 [facility]YLINE [facility] TABS 2014 [facility] LISINOPRIL-HYDROCH Active [facility] LOROTHIAZIDE 20-25 2014 [facility] MG TABS VITAMIN D3 5000 Active [facility] UNIT TABS 2014 [facility] JANUVIA 100 MG Active [facility] TABS 2015 [facility]IME[facility]IRIDE 4 [facility] METFORMIN HCL ER Active 500 MG [id number] 2014 [facility] ATORVASTATIN Active [facility] CALCIUM 80 MG TABS 2015 [facility]RIPTYLINE HCL [facility] MG TABS 2014 [facility] LISINOPRIL-HYDROCH Active [facility] LOROTHIAZIDE 20-25 2014 [facility] MG TABS JANUVIA 100 [facility]IRIDE 4 [facility] METFORMIN HCL ER Active [facility] 500 MG [id number] 2014 [facility] Allergies, Adverse Reactions, Alerts Substance Category Reaction Severity Reaction Status Date Comments Source type Reported PREDNISONE Drug PREDNISONE [facility] allergy 5 Neuro predniSONE< Assertion Drug Active Data [place] sup>1</sup> allergy 5 migrated Medical from [facility] on 03/11/15. Originally documented as PREDNISONE. predniSONE [...] eGFR of 60-89 may be normal in [facility] mL/min/1. some populations, particularly the elderly, for whom the CKD-EPI formula has not been extensively validated. Use of the eGFR is not recommended in the following populations: [place] [address] [facility] Individuals with unstable creatinine concentrations, including [...] POC 0.8 mg/dL 0.5 - 1.4 05/01 [facility] Creatinine /2014 [facility] Spine Spine lumbar EXAM: MRI LUMBAR SPINE WITHOUT AND WITH CONTRAST 05/01 - [facility] lumbar w/wo /2014 - [facility] w/ contrast MRI This report was dictated by a Forming Machine Tender/ Fellow. I have personally reviewed the images [...] BANK Platelet Product available 01/16 RESULTS product [facility] (01/16/15 8:58 AM) BLOOD BANK Antibody Negative 01/15 RESULTS Scrn [facility] (01/15/15 3:22 PM) BLOOD BANK ABO/Rh A POS 01/15 RESULTS /2014 ELECTROLYT AGAP 9.7 meq/L 10.0 - 01/15 ES 20.0 [facility] ELECTROLYT eGFR 83 01/15 1Result Comment: The eGFR is calculated using the CKD-EPI formula. In most young, healthy individuals the eGFR will be >90 mL/ min/1.73m2. The eGFR declines with age. An eGFR of 60-89 may be normal in [facility] mL/min/1. some populations, particularly the elderly, for whom the CKD-EPI formula has not been extensively validated. Use of the eGFR is not recommended in the following populations: [facility] 3m2 Individuals with unstable creatinine concentrations, including [...] Lvl 105 meq/L 95 - 109 01/15 [facility] ELECTROLYT Potassium 3.7 meq/L 3.5 - 5.1 01/15 [facility] Lvl [facility] ELECTROLYT Sodium Lvl 142 meq/L 135 - 145 01/15 [facility] ELECTROLYT Creatinine 0.8 mg/dL 0.5 - 1.4 01/15 [facility] Lvl [facility] ELECTROLYT Glucose Lvl 172 mg/dL 70 - 99 01/15 2Interpretive Data: Adult reference range values reflect the clinical guidelines of the [place] [employer]. [facility] ELECTROLYT BUN 9 mg/dL 7 - 22 01/15 [facility] ELECTROLYT Calcium Lvl 9.0 mg/dL 8.5 - 10.5 01/15 [facility] ELECTROLYT CO2 31 meq/L 24 - 32 01/15 [facility] HEMATOLOGY INR 1.06 0.85 - 01/15 3Interpretive Data: RECOMMENDED RANGES FOR PROTIME INR: . 2.0-3.0 for most medical and surgical thromboembolic states. [facility] 2.5-3.5 for artificial heart valves and recurrent embolism. INR SHOULD BE USED ONLY FOR PATIENTS ON STABLE ANTICOAGULANT THERAPY. HEMATOLOGY PT 13.8 s 12.0 - 01/15 14.7 [facility] HEMATOLOGY PTT 32.8 s 22.9 - 01/15 4Interpretive 35.8 /2014 Data: Heparin [facility] Therapeutic Range: 57 - 92 Seconds HEMATOLOGY MPV 9.7 fL 7.4 - 10.4 01/15 /2014 [facility] HEMATOLOGY Platelet 112 K/CMM 133 - 450 01/15 /2014 [facility] HEMATOLOGY MCHC 33.4 g/dL 32.0 - 01/15 MH 36.0 /2014 [facility] HEMATOLOGY RDW 13.1 % 11.5 - 01/15 MH 14.5 /2014 [facility] HEMATOLOGY MCH 31.7 pg 27.0 - 01/15 MH 31.0 /2014 [facility] HEMATOLOGY RBC 4.33 M/CMM 4.20 - 01/15 MH 5.40 /2014 [facility] HEMATOLOGY WBC 10.0 K/CMM 3.7 - 10.4 01/15 [facility] HEMATOLOGY Hgb 13.7 g/dL 12.0 - 01/15 MH 16.0 /2014 [facility] HEMATOLOGY Hct 41.2 % 36.0 - 01/15 MH 48.0 /2014 [facility] HEMATOLOGY MCV 95.1 fL 80.0 - 01/15 MH 98.0 /2014 [facility] HEMATOLOGY Monocytes 4.7 % 2.0 - 12.0 01/15 [facility] HEMATOLOGY Eosinophils 2.9 % 0.0 - 4.0 01/15 /2014 [facility] HEMATOLOGY Lymphocytes 57.6 % 20.0 - 01/15 MH 40.0 /2014 [facility] HEMATOLOGY Monocytes # 0.5 K/CMM 0.0 - 0.8 01/15 [facility] HEMATOLOGY Eosinophils 0.3 K/CMM 0.0 - 0.5 01/15 MH # /2014 [facility] HEMATOLOGY Segs 34.6 % 45.0 - 01/15 MH 75.0 /2014 [facility] HEMATOLOGY RBC Morph Normal 01/15 [facility] (01/15/15 3:22 PM) HEMATOLOGY Plt Morph Normal 01/15 [facility] (01/15/15 3:22 PM) HEMATOLOGY Lymphocytes 5.8 K/CMM 1.0 - 5.5 01/15 MH # /2014 [facility] HEMATOLOGY Basophils 0.2 % 0.0 - 1.0 01/15 [facility] HEMATOLOGY Segs-Bands # 3.5 K/CMM 1.5 - 8.1 01/15 [facility] URINE AND UA Sq Epi Occasional Few /LPF 01/15 MH STOOL /LPF /2014 [facility] URINE AND UA RBC 0-2 /HPF 0 - 2 01/15 STOOL [facility] URINE AND UA WBC 0-2 /HPF None Seen 01/15 [facility]OOL /HPF [facility] URINE AND UA 4.0 EU/dL 0.1 - 1.0 01/15 STOOL Urobilinogen /2014 [place] URINE AND UA Leuk Est Negative Negative 01/15 STOOL [facility] (01/15/15 3:22 PM) URINE AND Micro? Performed 01/15 STOOL [facility] (01/15/15 3:22 PM) URINE AND UA Blood Small Negative 01/15 STOOL [facility] *ABN* (01/15/15 3:22 PM) URINE AND UA Nitrite Negative Negative 01/15 STOOL [facility] (01/15/15 3:22 PM) URINE AND UA Color Yellow Yellow 01/15 [facility] *NA* (01/15/15 3:22 PM) URINE AND UA pH 6.0 5.0 - 8.0 01/15 [facility] URINE AND UA Spec Grav 1.025 <=1.030 01/15 [facility] URINE AND UA Turbidity Clear Clear 01/15 [facility]OOL [facility] (01/15/15 3:22 PM) URINE AND UA Glucose >=1000 Negative 01/15 STOOL mg/dL mg/dL [facility] URINE AND UA Protein Negative Negative 01/15 [facility] (01/15/15 3:22 PM) URINE AND UA Bili Negative Negative 01/15 [facility] *NA* (01/15/15 3:22 PM) URINE AND UA Ketones Negative Negative 01/15 [facility] *NA* (01/15/15 3:22 PM) Vital Signs Vital [...] [facility] Systolic (mm Hg) 121 02/05/2015 [facility] Neuro Diastolic (mm Hg) 68 02/05/2015 [facility] Neuro Systolic (mm Hg) 109 01/22/2015 [facility] Diastolic (mm Hg) 55 01/22/2015 [facility] Heart Rate 76 01/22/2015 [facility] Respitory Rate 17 01/22/2015 [facility] Temperature Oral (F) 98.0 F 01/22/2015 [facility] Systolic (mm Hg) 123 01/22/2015 [facility] Diastolic (mm Hg) 67 01/22/2015 [facility] Respitory Rate 18 01/22/2015 [facility] Heart Rate 65 01/22/2015 [facility] Temperature Oral (F) 97.7 F 01/22/2015 [facility] Respitory Rate 15 01/22/2015 [facility] Systolic (mm Hg) 114 01/22/2015 [facility] Diastolic (mm Hg) 63 01/22/2015 [facility] Heart Rate 67 01/22/2015 [facility] Temperature Oral (F) 98.4 F 01/22/2015 [facility] BMI Calculated 25.23 01/15/2015 [facility] Weight 70.909 01/15/2015 [facility] Height 167.64 cm 01/15/2015 [facility] Weight 156.5 12/13/2014 [facility] Height 65.50 12/13/2014 [facility] Temperature Oral (F) 97.5 F 12/13/2014 [facility] Heart Rate 67 12/13/2014 [facility] Systolic (mm Hg) 123 12/13/2014 [facility] Diastolic (mm Hg) 65 12/13/2014 [facility] Encounters Location Location Encounter Encounter Reason Attending ADM DC Status Source Details Type Number For Provider Date Date Visit [facility] [id number] [facility] Izabela BENITEZ /[address] [facility] Bedded [id number] Ang 01/21 01/22 [facility] Outpatient Izabela Morales /2014 [facility] [id number] [facility]02[facility] Izabela BENITEZ [place]2014 [place] [facility] [id number] Ang 02/26 02/26 [facility] Visit 1330 Izabela BENITEZ /2014 [place] Outpatient [id number] ANG04/24 [facility] Outpatient [id number] Non 05/01 05/02 [facility] Phill Physician /2014 [facility] [id number] [facility] [place] [facility] [id number] ANG 06/19 [facility] [place] Procedures Procedure Code Date Perfomer Comments Source smoking/tobacco 14 12/13/2014 no [facility] cessation, patient education and counseling Abdominal [id number] AGE 26 [facility] hysterectomy<sup>1< Medical Center /sup> CTR - Carpal tunnel [id number] 2004 [facility] release<sup>2</sup> [facility] Ligament [id number] 2010 [facility] repair<sup>3</sup> [facility] Miscellaneous [id number] 2013 [facility] operations<sup>4</s [facility] Center up> Abdominal [id number] 1AGE 26 [facility] hysterectomy<sup>1< /sup> CTR - Carpal tunnel [id number] [id number] [facility] release<sup>2</sup> Ligament [id number] [facility] repair<sup>3</sup> Miscellaneous [id number] [id number] [facility] operations<sup>4</s up>
--- OUTSIDE RECORDS SUMMARY | 2018-10-11 02:20 | XMS REPORT | Continuity of Care Document ---
:1960 Author Organization [facility] Care Team Providers Name Role Phone Nasir Gurrola MD Unavailable Insurance Providers Payer name Policy type / Coverage type Policy ID Covered alliance party ID Policy Harden AETNA (PPO) AETNA (PPO) Encounters Encounter Performer Location Date Office Visit Nasir Gurrola MD [facility] [place] Feb 05, 2015 Allergies, Adverse [...] Start Date Status ALPRAZOLAM ER 0.5 MG [id number] December 13, 2014 Active SYNTHROID 100 MCG [...] 2014 Active METFORMIN HCL ER 500 MG [id number] December 13, 2014 Active ATORVASTATIN CALCIUM 80 [...]
--- OUTSIDE RECORDS SUMMARY | 2018-10-11 02:20 | XMS REPORT | Continuity of Care Document ---
[...] Start Date Status ALPRAZOLAM ER 0.5 MG [id number] December 13, 2014 Active SYNTHROID 100 MCG [...] 2014 Active METFORMIN HCL ER 500 MG [id number] December 13, 2014 Active ATORVASTATIN CALCIUM 80 [...]
--- OUTSIDE RECORDS SUMMARY | 2018-10-11 02:20 | XMS REPORT | Continuity of Care Document ---
:1960 Author Organization [facility] Care Team Providers Name Role Phone Nasir Gurrola MD Unavailable Insurance Providers Payer name Policy type / Coverage type Policy ID Covered green party ID Policy Harden AETNA (PPO) AETNA (PPO) Encounters Encounter Performer Location Date Office Visit Nasir Gurrola MD [facility] December 13, 2014 Allergies, Adverse Reactions, Alerts [...] Start Date Status ALPRAZOLAM ER 0.5 MG [id number] December 13, 2014 Active SYNTHROID 100 MCG [...] 2014 Active METFORMIN HCL ER 500 MG [id number] December 13, 2014 Active ATORVASTATIN CALCIUM 80 [...]
[2018-10-11] MEDS ORDERED: NA CHLORIDE 0.9% 1,000 ML ONE (03:00)
[2018-10-11 03:05] LABS: Absolute Lymphocytes (CBC) 6.3 K/uL (0.7-4.9); Absolute Monocytes 0.6 K/uL (0.1-1.3); Absolute Neutrophil 6.5 K/uL (1.8-8.0); Basophils % 0.5 % (0-1.3); Eosinophils % 1.1 % (0-4.4); Hematocrit 43.9 % (36.0-45.0); Lymphocytes % 46.4 % (15.3-44.8); MPV 9.7 fL (7.6-11.3); Monocytes % 4.4 % (3.3-12.3); RBC Red Blood Cell Count 4.73 M/uL (3.86-4.86)
[2018-10-11] MEDS ORDERED: INSULIN -REGULAR HUMAN 50 UNIT/0.5 ML ML ONE (03:10)
[2018-10-11 03:25] LABS: BUN Blood Urea Nitrogen 27 mg/dL (7-18); Bicarbonate 27 mmol/L (21-32); Potassium 4.1 mmol/L (3.5-5.1); Sodium Level 132 mmol/L (136-145)
[2018-10-11 03:26] LABS: Glucose Level 440 mg/dL (74-106); Magnesium 1.2 mg/dL (1.8-2.4)
[2018-10-11] MEDS ORDERED: DIAZEPAM 5 MG TABLET ONE (03:50)
[2018-10-11] MEDS ORDERED: MAGNESIUM SULFATE 1 gm IVPB 1 GM/100 ML BAG IV ONE (03:51)
--- NOTE | 2018-10-11 04:05 | EDPHYS ---
Physician Documentation [facility] Name: Saba Ahumada Age: 57 yrs Sex: Female : 1960 Arrival Date: 10/11/2018 Time: 02:17 Bed 7 Private MD: ED Physician Hakan Lawson HPI: 10/11 02:33 This 57 yrs old Female presents to ER via Unassigned with complaints of High rn Blood Pressure, cramping. 02:33 This 57 yrs old Female presents to ER via Unassigned with complaints of High rn Blood Sugar, cramping. 02:34 The patient or guardian reports hyperglycemia. Onset: The symptoms/episode rn began/occurred 4 day(s) ago. Associated signs and symptoms: Pertinent positives: polydipsia, polyuria. Current symptoms: In the emergency department the patient's symptoms are unchanged from the initial presentation. The patient has not experienced similar symptoms in the past. REports on insulin for 2 years, [place], reports atypical diet during that time, is taking her levemir and oral pills, feels dehydrated, thirsty, and urinating a lot. Reports yeast infection since glucose high, reports as high as 600 at home, double checked with his glucometer. Reports main complaint is her cramping in legs. . Historical: - Allergies: 02:20 Prednisone; cc3 - Home Meds: 02:20 alprazolam 0.5 mg Oral Tb24 1 tab once daily [Active]; amitriptyline 50 mg Oral tab 1 cc3 tab once daily [Active]; atorvastatin 80 mg Oral tab 1 tab once daily [Active]; baclofen 10 mg Oral tab 1 tab twice a day [Active]; diazepam 5 mg Oral tab 1 tab nightly [Active]; glimepiride 4 mg Oral tab 1 tab once daily [Active]; Januvia 100 mg Oral tab 1 tab once daily [Active]; Levemir 100 unit/mL subcutaneous soln 50 unit daily [Active]; lisinopril-hydrochlorothiazide 20-25 mg Oral tab 1 tab once daily [Active]; metformin 500 mg Oral tab 1 tab 2 times per day [Active]; Synthroid 88 mcg Oral tab 1 tab once daily [Active]; Vitamin D2 50,000 unit Oral cap 1 cap once wkly [Active]; - PMHx: 02:20 Anxiety; Cirrhosis; Diabetes - IDDM; Fibromyalgia; Hypertension; Hypothyroidism; cc3 - Immunization history:: Adult Immunizations not up to date. - Social history:: Smoking status: Patient uses tobacco products, smokes one pack cigarettes per day. - Family history:: not pertinent. - Ebola Screening: : No symptoms or risks identified at this time. - Hospitalizations: : No recent hospitalization is reported. ROS: 02:34 Constitutional: Negative for fever, chills, and weight loss, Eyes: Negative for injury, rn pain, redness, and discharge, ENT: Negative for injury, pain, and discharge, Cardiovascular: Negative for chest pain, palpitations, and edema, Respiratory: Negative for shortness of breath, cough, wheezing, and pleuritic chest pain, Abdomen/GI: Negative for abdominal pain, nausea, vomiting, diarrhea, and constipation, MS/Extremity: Negative for injury and deformity, Skin: Negative for injury, rash, and discoloration, Neuro: Negative for headache, numbness, tingling, and seizure, Endocrine: + polyuria and polydipsia Exam: 02:34 Constitutional: This is a well developed, well nourished patient who is awake, alert, rn and in no acute distress. Head/Face: Normocephalic, atraumatic. Eyes: Pupils equal round and reactive to light, extra-ocular motions intact. Lids and lashes normal. Conjunctiva and sclera are non-icteric and not injected. Cornea within normal limits. Periorbital areas with no swelling, redness, or edema. ENT: dry MM Cardiovascular: tachycardic, regular, no murmur Respiratory: Mild tachypnea, no retractions Abdomen/GI: soft, non-tender Skin: Warm, dry MS/ Extremity: Pulses equal, no cyanosis. Neurovascular intact. Full, normal range of motion. Equal circumference. Neuro: Awake and alert, GCS 15, oriented to person, place, time, and situation. Cranial nerves II-XII grossly intact. Motor strength 5/5 in all extremities. Sensory grossly intact. Cerebellar exam normal. Normal gait. Vital Signs: 02:20 BP 133 / 63; Pulse 103; Resp 20 S; Temp 98.6(O); Pulse Ox 99% on R/A; Weight 63.5 kg cc3 (R); Height 5 ft. 5 in. (165.10 cm) (R); Pain 10/10; 03:04 BP 118 / 68; Pulse 90; Resp 18; Pulse Ox 96% on R/A; lp1 04:08 BP 131 / 60; Pulse 92; Resp 14 S; Pulse Ox 96% on R/A; cc3 04:45 BP 125 / 75; Pulse 87; Resp 14 S; Pulse Ox 98% on R/A; cc3 02:20 Body Mass Index 23.30 (63.50 kg, 165.10 cm) cc3 MDM: 02:23 Patient medically screened. rn 04:03 Differential diagnosis: DKA, hyperglycemia, dehydration. Data reviewed: vital signs, rn nurses notes, lab test result(s), and as a result, I will discharge patient. Counseling: I had a detailed discussion with the patient and/or guardian regarding: the historical points, exam findings, and any diagnostic results supporting the discharge/admit diagnosis, lab results, the need for outpatient follow up, to return to the emergency department if symptoms worsen or persist or if there are any questions or concerns that arise at home. Response to treatment: the patient's symptoms have mildly improved after treatment, and as a result, I will discharge patient. Special discussion: I discussed with the patient/guardian in detail that at this point there is no indication for admission to the hospital. It is understood, however, that if the symptoms persist or worsen the patient needs to return immediately for re-evaluation. Based on the history and exam findings, there is no indication for further emergent testing or inpatient evaluation. I discussed with the patient/guardian the need to see the primary care provider for further evaluation of the symptoms. ED course: Pt improved, neg ketones, glucose now 237, tachycardia improved, normal vitals, will dc home with pcp f/u and good glucose monitoring. . 10/11 02:33 Order name: CBC with Diff rn 10/11 02:33 Order name: Basic Metabolic Panel rn 10/11 02:33 Order name: Ketone, Serum rn 10/11 02:33 Order name: Magnesium; Complete Time: 03:57 rn 10/11 02:33 Order name: CBC with Automated Diff; Complete Time: 03:30 EDMS 10/11 02:33 Order name: Basic Metabolic Panel; Complete Time: 03:57 EDMS 10/11 02:33 Order name: IV Start; Complete Time: 03:00 rn 10/11 02:33 Order name: Acetone Level; Complete Time: 03:57 EDMS 10/11 03:02 Order name: Urine Dipstick--Ancillary (enter results) ar5 10/11 02:33 Order name: Urine Dipstick-Ancillary (obtain specimen); Complete Time: 03:01 rn Administered Medications: 03:00 Drug: Insulin Regular Human 5 units {Co-Signature: jabier (Dayna Todd RN).} Route: IVP; cc3 Site: right antecubital; 04:02 Follow up: Response: No adverse reaction; Blood sugar is lowered cc3 03:03 Drug: NS 0.9% 1000 ml Route: IV; Rate: 1000 ml; Site: right forearm; lp1 04:15 Follow up: Response: No adverse reaction; IV Status: Completed infusion; IV Intake: cc3 1000ml 03:05 Drug: Insulin Regular Human 10 units {Co-Signature: jabier (Dayna Todd RN).} Route: Sub-Q; cc3 Site: right upper arm; 04:02 Follow up: Response: No adverse reaction; Blood sugar is lowered cc3 03:40 Drug: Valium 5 mg Route: PO; cc3 04:06 Follow up: Response: No adverse reaction cc3 03:45 Drug: Magnesium Sulfate 1 grams Route: IVPB; Infused Over: 1 hrs; Site: right forearm; cc3 04:45 Follow up: Response: No adverse reaction; IV Status: Completed infusion; IV Intake: cc3 100ml Point of Care Testing: Blood Glucose: 02:29 Blood Glucose: 407 mg/dL; cc3 04:02 Blood Glucose: 237 mg/dL; cc3 Ranges: Critical Glucose Levels:Adult <50 mg/dl or >400 mg/dl <40 mg/dl or >180 mg/dl Disposition: 10/11/18 04:05 Discharged to Home. Impression: Hyperglycemia, unspecified, Muscle spasm. - Condition is Stable. - Discharge Instructions: Hyperglycemia, Blood Glucose Monitoring, Adult. - Medication Reconciliation Form, Thank You Letter, Antibiotic Education, Prescription Opioid Use form. - Follow up: Private Physician; When: As needed; Reason: Recheck today's complaints, Re-evaluation by your physician. - Problem is new. - Symptoms have improved. Signatures: Dispatcher [facility] EDMT Hakan Lawson MD MD rn Pena, Laura, RN RN lp1 Lise Christiansen cc3 Dayna Todd RN lp1 Corrections: (The following items were deleted from the chart) 04:55 04:05 10/11/2018 04:05 Discharged to Home. Impression: Hyperglycemia, unspecified; cc3 Muscle spasm. Condition is Stable. Forms are Medication Reconciliation Form, Thank You Letter, Antibiotic Education, Prescription Opioid Use. Follow up: Private Physician; When: As needed; Reason: Recheck today's complaints, Re-evaluation by your physician. Problem is new. Symptoms have improved. rn
--- NOTE | 2018-10-11 04:05 | ER ---
Nurse's Notes [facility] Name: Saba Ahumada Age: 57 yrs Sex: Female : 1960 Arrival Date: 10/11/2018 Time: 02:17 Bed 7 Private MD: Diagnosis: Hyperglycemia, unspecified;Muscle spasm Presentation: 10/11 02:20 Presenting complaint: Patient states: "My blood sugar's been always high since 4 days, cc3 and today just 40 minutes back my right hand and left foot started to hurt and cramp real bad.". Transition of care: patient was not received from another setting of care. Onset of symptoms was October 11, 2018. Risk Assessment: Do you want to hurt yourself or someone else? Patient reports no desire to harm self or others. Initial Sepsis Screen: Does the patient meet any 2 criteria? No. Patient's initial sepsis screen is negative. Does the patient have a suspected source of infection? No. Patient's initial sepsis screen is negative. Care prior to arrival: None. 02:20 Method Of Arrival: Wheelchair cc3 02:20 Acuity: NAYLA 3 cc3 Triage Assessment: 02:20 General: Appears in no apparent distress. uncomfortable, Behavior is calm, cooperative, cc3 appropriate for age. Pain: Complains of pain in right hand, left foot Pain currently is 10 out of 10 on a pain scale. Quality of pain is described as crampy, Pain began suddenly. EENT: No signs and/or symptoms were reported regarding the EENT system. Neuro: Level of Consciousness is awake, alert, obeys commands, Oriented to person, place, time, situation, Appropriate for age. Cardiovascular: Denies chest pain, Patient's skin is warm and dry. Respiratory: Airway is patent Respiratory effort is even, unlabored, Respiratory pattern is regular, symmetrical. GI: Abdomen is round non-distended. : No signs and/or symptoms were reported regarding the genitourinary system. Derm: No signs and/or symptoms reported regarding the dermatologic system. Musculoskeletal: Circulation, motion, and sensation intact. Range of motion: intact in all extremities, Reports pain in right hand, left foot. Historical: - Allergies: 02:20 Prednisone; cc3 - Home Meds: 02:20 alprazolam 0.5 mg Oral Tb24 1 tab once daily [Active]; amitriptyline 50 mg Oral tab 1 cc3 tab once daily [Active]; atorvastatin 80 mg Oral tab 1 tab once daily [Active]; baclofen 10 mg Oral tab 1 tab twice a day [Active]; diazepam 5 mg Oral tab 1 tab nightly [Active]; glimepiride 4 mg Oral tab 1 tab once daily [Active]; Januvia 100 mg Oral tab 1 tab once daily [Active]; Levemir 100 unit/mL subcutaneous soln 50 unit daily [Active]; lisinopril-hydrochlorothiazide 20-25 mg Oral tab 1 tab once daily [Active]; metformin 500 mg Oral tab 1 tab 2 times per day [Active]; Synthroid 88 mcg Oral tab 1 tab once daily [Active]; Vitamin D2 50,000 unit Oral cap 1 cap once wkly [Active]; - PMHx: 02:20 Anxiety; Cirrhosis; Diabetes - IDDM; Fibromyalgia; Hypertension; Hypothyroidism; cc3 - Immunization history:: Adult Immunizations not up to date. - Social history:: Smoking status: Patient uses tobacco products, smokes one pack cigarettes per day. - Family history:: not pertinent. - Ebola Screening: : No symptoms or risks identified at this time. - Hospitalizations: : No recent hospitalization is reported. Screenin:20 Abuse screen: Denies threats or abuse. Denies injuries from another. Nutritional cc3 screening: No deficits noted. Tuberculosis screening: No symptoms or risk factors identified. Fall Risk Ambulatory Aid- None/Bed Rest/Nurse Assist (0 pts). Gait- Normal/Bed Rest/Wheelchair (0 pts) Mental Status- Oriented to own ability (0 pts). Assessment: 02:20 General: see triage assessment. cc3 03:09 Reassessment: Patient appears in no apparent distress at this time. Patient and/or cc3 family updated on plan of care and expected duration. Pain level reassessed. Patient is alert, oriented x 3, equal unlabored respirations, skin warm/dry/pink. 04:50 Reassessment: Patient appears in no apparent distress at this time. Patient and/or cc3 family updated on plan of care and expected duration. Pain level reassessed. Patient is alert, oriented x 3, equal unlabored respirations, skin warm/dry/pink. Magnesium sulfate infusion completed, Dr. Lawson discharged the patient home no prescription given. IV cannula removed and patient left ER vitally stable by wheelchair escorted by me. Patient states symptoms have improved. Vital Signs: 02:20 BP 133 / 63; Pulse 103; Resp 20 S; Temp 98.6(O); Pulse Ox 99% on R/A; Weight 63.5 kg cc3 (R); Height 5 ft. 5 in. (165.10 cm) (R); Pain 10/10; 03:04 BP 118 / 68; Pulse 90; Resp 18; Pulse Ox 96% on R/A; lp1 04:08 BP 131 / 60; Pulse 92; Resp 14 S; Pulse Ox 96% on R/A; cc3 04:45 BP 125 / 75; Pulse 87; Resp 14 S; Pulse Ox 98% on R/A; cc3 02:20 Body Mass Index 23.30 (63.50 kg, 165.10 cm) cc3 ED Course: 02:17 Patient arrived in ED. am2 02:20 Arm band placed on right wrist. cc3 02:20 Patient has correct armband on for positive identification. Bed in low position. Call cc3 light in reach. Side rails up X 1. Pulse ox on. NIBP on. 02:23 Hakan Lawson MD is Attending Physician. rn 02:33 Lise Christiansen is Primary Nurse. cc3 02:38 Triage completed. cc3 02:54 Inserted saline lock: 20 gauge in right forearm, using aseptic technique. Blood lp1 collected. 04:50 No provider procedures requiring assistance completed. IV discontinued, intact, cc3 bleeding controlled, No redness/swelling at site. Pressure dressing applied. Administered Medications: 03:00 Drug: Insulin Regular Human 5 units {Co-Signature: [email or web address] (Dayna Todd RN).} Route: IVP; cc3 Site: right antecubital; 04:02 Follow up: Response: No adverse reaction; Blood sugar is lowered cc3 03:03 Drug: NS 0.9% 1000 ml Route: IV; Rate: 1000 ml; Site: right forearm; lp1 04:15 Follow up: Response: No adverse reaction; IV Status: Completed infusion; IV Intake: cc3 1000ml 03:05 Drug: Insulin Regular Human 10 units {Co-Signature: [email or web address] (Dayna Todd RN).} Route: Sub-Q; cc3 Site: right upper arm; 04:02 Follow up: Response: No adverse reaction; Blood sugar is lowered cc3 03:40 Drug: Valium 5 mg Route: PO; cc3 04:06 Follow up: Response: No adverse reaction cc3 03:45 Drug: Magnesium Sulfate 1 grams Route: IVPB; Infused Over: 1 hrs; Site: right forearm; cc3 04:45 Follow up: Response: No adverse reaction; IV Status: Completed infusion; IV Intake: cc3 100ml Point of Care Testing: Blood Glucose: 02:29 Blood Glucose: 407 mg/dL; cc3 04:02 Blood Glucose: 237 mg/dL; cc3 Ranges: Intake: 04:15 IV: 1000ml; Total: 1000ml. cc3 04:45 IV: 100ml; Total: 1100ml. cc3 Outcome: 04:05 Discharge ordered by . rn 04:50 Discharged to home via wheelchair. cc3 04:50 Condition: stable 04:50 Discharge instructions given to patient, Instructed on discharge instructions, follow up and referral plans. Demonstrated understanding of instructions, follow-up care. 04:55 Patient left the ED. cc3 Signatures: Hakan Lawson MD MD rn Pena, Laura, RN RN lp1 Florence Meng Charlene cc3 Dayna Todd RN lp1
[2018-10-11 05:03] VITALS: O2SAT 96
[2018-10-11 05:04] VITALS: TEMP 98.6
[2018-10-11 05:05] VITALS: BP 131/60
[2018-10-11 05:12] LABS: Urine Blood TRACE (NEG); Urine Glucose 2+ (NEG); Urine Protein NEGATIVE (NEG)
== END 2018-10-11 04:55 | disposition home or self-care (01) ==
LOC: ER 02:16
DX: E11.65 Type 2 diabetes mellitus with hyperglycemia (principal); M62.838 Other muscle spasm; I10 Essential (primary) hypertension; E03.9 Hypothyroidism, unspecified; K74.60 Unspecified cirrhosis of liver; F41.9 Anxiety disorder, unspecified; Z79.82 Long term (current) use of aspirin; Z79.4 Long term (current) use of insulin
CPT/HCPCS: 36415; 80048; 81003; 82010; 82962; 83735; 85025; 96361; 96365; 96372; 96375; 99284; J3475; J7030

== ENCOUNTER 2019-03-06 17:36 | Emergency (ER) | payer OTHER, SELFPAY ==
--- OUTSIDE RECORDS SUMMARY | 2019-03-06 17:39 | XMS REPORT | Clinical Summary ---
:1960 Author Organization [facility] Address [address] [place] [address] Care Team Providers Name Role Phone Asked, No Pcp Primary Care Provider Unavailable Allergies Active Allergy Reactions Severity Noted Date Comments Penicillins 11/27/2017 Increases my blood pressure Medications Medication Sig Dispensed Refills Start Date End Date Status clindamycin (CLEOCIN) TAKE ONE CAPSULE 0 11/15/2017 Active 300 MG capsule BY MOUTH 3 TIMES A DAY FOR 10 DAYS doxycycline TAKE 1 TABLET BY 0 10/28/2017 Active (VIBRA-TABS) 100 MG MOUTH TWICE A DAY tablet TAKE WITH FOOD SYNTHROID 88 mcg Take 88 mcg by 3 11/23/2017 Active tablet mouth daily. amitriptyline (ELAVIL) Take 50 mg by 3 11/23/2017 Active 50 MG tablet mouth daily. ALPRAZolam (XANAX) 0.5 Take 0.5 mg by 0 10/28/2017 Active MG tablet mouth nightly as needed. baclofen (LIORESAL) 10 TAKE 1 TABLET BY 1 10/04/2017 Active MG tablet MOUTH EVERY 8 HOURS NEEDED FOR SPASMS glimepiride (AMARYL) 4 Take 4 mg by mouth 3 11/23/2017 Active MG tablet daily. metFORMIN XR TAKE 2 TABLET BY 3 11/23/2017 Active (GLUCOPHAGE-XR) 500 mg MOUTH TWICE A DAY 24 hr tablet lisinopril-hydrochloro Take 1 tablet by 3 11/23/2017 Active thiazide mouth daily. (PRINZIDE,ZESTORETIC) 20-25 mg per tablet hydromorPHONE TAKE 1 TABLET BY 0 11/05/2017 Active (DILAUDID) 8 MG tablet MOUTH EVERY 4 HOURS NEEDED FOR PAIN MAX5/DAY VITAMIN D2 50,000 unit TAKE BY MOUTH 1 4 09/20/2017 Active capsule CAPSULE ONCE A WEEK ONETOUCH ULTRA TEST USE 1 STRIP 2 09/21/2017 Active strip test strips DIRECTED ONCE A DAY ONETOUCH ULTRASOFT USE 1 LANCET TO 3 09/21/2017 Active lancets SKIN ONCE A DAY DIRECTED WITH GLUCOMETER atorvastatin (LIPITOR) Take 80 mg by 0 Active 80 MG tablet mouth daily. diazePAM (VALIUM) 5 MG Take 5 mg by mouth 0 Active tablet every 6 (six) hours as needed for anxiety. sitaGLIPtin (JANUVIA) Take 100 mg by 0 Active 100 MG tablet mouth daily. Active Problems Not on file Social History Tobacco Use Types Packs/Day Years Used Date Current Every Day Smoker 1 Alcohol Use Drinks/Week oz/Week Comments No Sex Assigned at Date Recorded Not on file Job Start Date Occupation Industry Not on file Not on file Not on file Travel History Travel Start Travel End No recent travel history available. 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
--- OUTSIDE RECORDS SUMMARY | 2019-03-06 17:41 | XMS REPORT | Continuity of Care Document ---
:1960 Author Organization [facility] Care Team Providers Name Role Phone Nasir Gurrola MD Unavailable Insurance Providers Payer name Policy type / Coverage type Policy ID Covered republican ID Policy Harden AETNA (PPO) AETNA (PPO) [...] Start Date Status ALPRAZOLAM ER 0.5 MG [id number] December 13, 2014 Active SYNTHROID 100 MCG [...] 2014 Active METFORMIN HCL ER 500 MG [id number] December 13, 2014 Active ATORVASTATIN CALCIUM 80 [...]
--- OUTSIDE RECORDS SUMMARY | 2019-03-06 17:41 | XMS REPORT | Continuity of Care Document ---
:1960 Author Organization [employer] Care Team Providers Name Role Phone [employer] Unavailable Unavailable Problems Problem Status Onset Classification Date Comments Source Date Reported LUMBAR RADICULOPATHY Active [address] [id number] Active 015 [place] HISTORY OF ARTHRITIS Active [...] [facility] MYELOPATHY 015 5 [facility] Low back pain Active Problem Data [facility] (disorder) 015 5 migrated Medical from [facility] on 03/12/15. Lumbar radiculopathy Active Problem Data [place] (disorder) 015 5 migrated Medical from [facility] on 03/12/15. Spinal stenosis of Active Problem Data [facility] lumbar region 015 5 migrated Medical (disorder) from [facility] on 03/12/15. Calcaneal spur Active Problem LEFT [facility] (disorder) 5 [facility] Depressive disorder Active Problem [place] (disorder) [facility] [place] Disorder of lumbar Active Problem HERNIATED [facility] disc (disorder) 5 [facility] Diabetes mellitus Active Problem [facility] (disorder) 5 [facility] [place] Steatosis of liver Active Problem [facility] (disorder) 5 [facility] [place] Fibromyositis Active Problem [facility] (disorder) 5 [facility] [place] Hypercholesterolemia Active Problem [facility] (disorder) 5 [facility] Hypertensive disorder, Active Problem [facility] systemic arterial Medical (disorder) [facility], [place] Hypothyroidism Active Problem [facility] (disorder) 5 [facility] [place] Osteoarthritis Active Problem [facility] (disorder) 5 [facility] Travel abroad Resolved Problem HAS NOT [facility] (finding) TRAVELLED Medical OUTSIDE OF [place] IN [facility] LAST 30 DAYS LUMBAR DISC Active DISPLACEMENT [place] Medications Medication Details Route Status Patient Ordering Order Source Instructions Provider Date multivitamin 1 tab, Route: No Longer PO, Dosing Active 2014 [facility] Weight 70.909, kg, Daily, Start date: 01/22/15 9:00:00, Duration: 30 day, Stop date: 02/20/15 9:00:00 glimepiride 4 mg, 2 tab, Inactive Route: PO, 2014 Drug form: TAB, Breakfast, Dosing Weight 70.909, kg, Start date: 01/22/15 8:00:00, Duration: 30 day, Stop date: 02/20/15 8:00:00Notes: (Same as: Amaryl) heparin 5,000 unit, 1 Inactive mL, Route: 2014 SUB-Q, Drug form: INJ, Q12H, Dosing Weight 70.909, kg, Start date: 01/22/15 6:00:00, Duration: 30 day, Stop date: 02/20/15 18:00:00Notes: porcine heparin Insulin, Aspart, 2 unit, 0.02 No Longer Human mL, Route: Active 2014 [facility] SUB-Q, Drug form: SOLN, TID-Before Meals, [...] No Longer Syringe Route: IVP, Active 2014 [facility] Drug Form: INJ, Dosing Weight 70.909, kg, PRN, PRN Blood Glucose Results, Start date: 01/21/15 23:21:00, Duration: 30 day, Stop date: 02/20/15 23:20:00 Glucagon 1 mg, Route: No Longer IM, Drug form: Active 2014 [facility] PDR/INJ, PRN, Dosing Weight 70.909, kg, PRN Blood Glucose Results, Start date: 01/21/15 23:21:00, Duration: 30 day, Stop date: 02/20/15 23:20:00 Glucagon 1 mg, Route: Inactive IM, Drug form: 2014 [facility] PDR/INJ, PRN, Dosing Weight 70.909, kg, PRN Blood Glucose Results, Start date: 01/21/15 23:17:00, Duration: 30 day, Stop date: 02/20/15 23:16:00 Dextrose 50% 12.5 gm, 25 Inactive Syringe mL, Route: 2014 [facility] IVP, Drug Form: INJ, Dosing Weight 70.909, kg, PRN, PRN Blood Glucose Results, Start date: 01/21/15 23:17:00, Duration: 30 day, Stop date: 02/20/15 23:16:00 Insulin, Aspart, 4 unit, 0.04 No Longer Human mL, Route: Active 2014 [facility] SUB-Q, Drug form: SOLN, Bedtime, Dosing Weight [...] tab, No Longer Route: PO, Active 2014 [facility] Drug form: TAB, Bedtime, Dosing Weight 70.909, kg, Start date: 01/21/15 21:00:00, Duration: 30 day, Stop date: 02/19/15 21:00:00Notes: (Same as: Elavil) atorvastatin 80 mg, 2 tab, No Longer Route: PO, Active 2014 [facility] Drug form: TAB, Bedtime, Dosing Weight 70.909, [...] cap, No Longer Route: PO, Active 2014 [facility] Drug form: CAP, BID, Dosing Weight 70.909, kg, Start date: 01/21/15 17:00:00, Duration: 30 day, Stop date: 02/20/15 9:00:00Notes: (Same as: Colace) (Do Not Crush) pantoprazole 40 mg, 1 tab, No Longer Route: PO, Active 2014 [facility] Drug form: ECTAB, Before Dinner, Dosing Weight 70.909, kg, Start date: 01/21/15 16:30:00, Duration: 30 day, Stop date: 02/19/15 16:30:00Notes: Tablet should not be chewed or crushed. (Same as: Protonix) ceFAZolin (SCIP) + 1 gm, Route: No Longer Sodium Chloride IVPB, Q8H, Active 2014 [facility] 0.9% IV 100 mL Dosing Weight 70.909, kg, Start date: 01/21/15 16:00:00, Duration: 2 doses or times, Stop date: 01/22/15 0:00:00Notes: (Same As: Molly Crocker) MEDICATION WASTE Product Size: 1000 mg Product Wasted: ___ mg Januvia 100 mg, 1 tab, No Longer Route: PO, Active 2014 [facility] Drug form: TAB, Daily, Dosing Weight 70.909, kg, Start date: 01/21/15 12:00:00, Duration: 30 day, Stop date: 02/20/15 9:00:00Notes: (Same as: Januvia) potassium chloride 10 mEq, 1 tab, No Longer Route: PO, Active 2014 [facility] Drug form: ERTAB, Daily, Dosing Weight 70.909, kg, Start date: 01/21/15 12:00:00, Duration: 30 day, Stop date: 02/20/15 9:00:00Notes: (Same as: K-Dur 10) "Do Not Crush" With food and full glass of water Hydrochlorothiazid 2 tab, Route: No Longer e 25 MG / PO, Drug Form: Active 2014 [facility] Lisinopril 20 MG TAB, Dosing Oral Tablet Weight 70.909, kg, Daily, Start date: 01/21/15 12:00:00, Duration: 30 day, Stop date: 02/20/15 9:00:00Notes: Non-formulary drug. (lisinopril-hy drochlorothiaz lori 10-12.5 mg TAB) (Same as: Prinzide, Zestoretic) multivitamin with 1 tab, Route: No Longer minerals PO, Drug Form: Active 2014 [facility] TAB, Daily, Start date: 01/21/15 12:00:00, Duration: 30 day, Stop date: 02/20/15 9:00:00Notes: Give with food. (Same As: Stress 600 with Zinc) Zofran 4 mg, 2 mL, No Longer Route: IVP, Active 2014 [facility] Drug form: INJ, Q4H, Dosing Weight [...] No Longer 1 tab, Route: Active 2014 [facility] PO, Drug form: TAB, Daily, Dosing Weight 70.909, kg, Start date: 01/21/15 11:00:00, Duration: 30 day, Stop date: 02/20/15 9:00:00Notes: Take 1 hour before or 2 hours after meal; Enteral feeds may interefere with the absorption of this medication. (Same as:Synthroid) Insulin, Aspart, 1 unit, 0.01 Inactive Human mL, Route: 2014 [facility] SUB-Q, Drug form: SOLN, TID-Before Meals, [...] mg, Route: Inactive IM, Drug form: 2014 [facility] PDR/INJ, PRN, Dosing Weight 70.909, kg, PRN Blood Glucose Results, Start date: 01/21/15 10:54:00, Duration: 30 day, Stop date: 02/20/15 10:53:00 Dextrose 50% 12.5 gm, 25 Inactive Syringe mL, Route: 2014 [facility] IVP, Drug Form: INJ, Dosing Weight 70.909, kg, PRN, PRN Blood Glucose Results, Start date: 01/21/15 10:54:00, Duration: 30 day, Stop date: 02/20/15 10:53:00 Docusate Sodium 100 mg=1 cap, Active 100 MG Oral PO, BID, # [address] [facility] Capsule [Colace] cap, 1 Refill(s) Diazepam 5 MG Oral 1-2, PO, Q4H, Active Tablet [Valium] PRN as needed 2014 [facility] for muscle spasms, # 30 tab, 4 Refill(s) tramadol 50 mg=1 tab, Active hydrochloride 50 PO, Q6H, PRN 2014 [facility] MG Oral Tablet as needed for [Ultram] pain, # 30 tab, 0 Refill(s) Dilaudid 0.5 mg, 0.5 Inactive mL, Route: IV, 2014 [facility] Drug form: INJ, Q5Min, Dosing Weight 70.909, kg, PRN Pain Score 7-10, Start date: 01/21/15 10:47:00, Duration: 4 doses or times, Stop date: 01/21/15 20:00:00Notes: Same as: Dilaudid Phenergan 12.5 mg, 0.5 Inactive 01/21/ mL, Route: IM, 2014 [facility] Drug form: INJ, ONCE, Dosing Weight 70.909, kg, PRN Nausea, Start date: 01/21/15 10:47:00Notes: Do not give IV push. (Same as: Phenergan) Meperidine 12.5 mg, 0.5 Inactive 01/21/ mL, Route: 2014 [facility] IVP, Drug form: INJ, Q5Min, Dosing Weight 70.909, kg, PRN Pain Score 4-6, Start date: 01/21/15 10:47:00, Duration: 4 doses or times, Stop date: 01/21/15 20:00:00Notes: (Same as: Demerol) "Use Precaution in Elderly, Seizure disorders, and Renal impairment" Acetaminophen 1,000 mg, 100 Inactive mL, Route: 2014 [facility] IVPB, Drug form: INJ, ONCE, Dosing Weight 70.909, kg, PRN Pain Score 1-3, Start date: 01/21/15 10:47:00, Duration: 1 doses or times, Stop date: Limited # of timesNotes: Infuse over 15 minutes Do not exceed 4gm/day of acetaminophen MEDICATION WASTE Product Size: 1000 mg Product Wasted: ___ mg Metoprolol 1 mg, 1 mL, Inactive Route: IVP2014 [facility] Drug form: INJ, Q5Min, Dosing Weight 70.909, kg, PRN Other -See Comment, Start date: 01/21/15 10:47:00, Duration: 5 doses or times, Stop date: 01/21/15 20:00:00Notes: (Same as: Lopressor) Push over 2 minutes Labetalol 10 mg, 2 mL, Inactive Route: IVP2014 [facility] Drug form: INJ, Q5Min, Dosing Weight 70.909, kg, PRN Elevated BP, Start date: 01/21/15 10:47:00, Duration: 5 doses or times, Stop date: 01/21/15 20:00:00Notes: (Same as: Normodyne, Trandate) Push over 2 minutes Give bolus over 2-3 minutes. Ketorolac 30 mg, 1 mL, Inactive Route: IVP2014 [facility] Drug form: INJ, ONCE, Dosing Weight [...] 10 mg, 0.5 mL, Inactive Route: IVP2014 [facility] Drug form: INJ, Q20Min, Dosing Weight 70.909, kg, PRN Elevated BP, Start date: 01/21/15 10:47:00, Duration: 2 doses or times, Stop date: 01/21/15 20:00:00Notes: (Same as: Apresoline) Push over 5 minutes Ondansetron 4 mg, 2 mL, Inactive Route: IVP2014 [facility] Drug form: INJ, ONCE, Dosing Weight 70.909, kg, PRN Nausea & Vomiting, Start date: 01/21/15 10:47:00Notes: (Same as: Zofran) MEDICATION WASTE Product Size: 4 mg Product Wasted: ___ mg Morphine 2 mg, 1 mL, Inactive Route: IVP2014 [facility] Drug form: INJ, Q5Min, Dosing Weight 70.909, kg, PRN Pain Score 4-6, Start date: 01/21/15 10:47:00, Duration: 5 doses or times, Stop date: Limited # of timesNotes: (Same as:MORPhine Sulfate) Hydromorphone 0.5 mg, 0.5 Inactive mL, Route: 2014 [facility] IVP, Drug form: INJ, Q5Min, Dosing Weight 70.909, kg, PRN Pain Score 7-10, Start date: 01/21/15 10:47:00, Duration: 4 doses or times, Stop date: 01/21/15 20:00:00Notes: Same as: Dilaudid Naloxone 0.04 mg, 0.1 Inactive mL, Route: 2014 [facility] IVP, Drug form: INJ, Q2MIN, Dosing Weight 70.909, kg, PRN Narcotic Reversal, Start date: 01/21/15 10:47:00, Duration: 8 doses or times, Stop date: 01/21/15 20:00:00Notes: Same as Narcan Flumazenil 0.2 mg, 2 mL, Inactive Route: IVP, 2014 [facility] Drug form: INJ, PRN, Dosing Weight 70.909, kg, PRN Benzodiazepine Reversal, Initial dose, Start date: 01/21/15 10:47:00, Stop date: 01/21/15 20:00:00Notes: (Same as: Romazicon) Diazepam 10 mg, 2 tab, No Longer Route: PO, Active 2014 [facility] Drug form: TAB, Q4H, Dosing Weight 70.909, kg, PRN Other -See Comment, Start date: 01/21/15 10:38:00, Duration: 7 day, Stop date: 01/28/15 10:37:00, severe muscle spasmsNotes: (Same as: Valium) Acetaminophen 650 mg, 2 tab, No Longer Route: PO, Active 2014 [facility] Drug form: TAB, Q4H, Dosing Weight 70.909, kg, PRN Pain 1-3/Temp > 100.4 F, Start date: 01/21/15 10:38:00, Duration: 30 day, Stop date: 02/20/15 10:37:00Notes: Do not exceed 4 gm/day. (Same as: Tylenol) Hydromorphone 4 mg, 2 tab, No Longer Route: PO, Active 2014 [facility] Drug form: TAB, Q4H, Dosing Weight 70.909, kg, PRN Other -See Comment, Start date: 01/21/15 10:38:00, Duration: 3 day, Stop date: 01/24/15 10:37:00Notes: (Same as: Dilaudid) Reglan 10 mg, 1 tab, No Longer Route: PO, Active 2014 [facility] Drug form: TAB, BID, Dosing Weight 70.909, kg, PRN Other -See Comment, Start date: 01/21/15 10:38:00, Duration: 30 day, Stop date: 02/20/15 10:37:00, nausea or vomiting if patient refractory to ondansetronNot es: (Same as: Reglan) Take 30 min before meals Zofran 4 mg, 2 mL, No Longer Route: IVP, Active 2014 [facility] Drug form: INJ, Q4H, Dosing Weight 70.909, kg, PRN Nausea, Start date: 01/21/15 10:38:00, Duration: 30 day, Stop date: 02/20/15 10:37:00Notes: (Same as: Zofran) MEDICATION WASTE Product Size: 4 mg Product Wasted: ___ mg Phenergan 25 mg, 50 mL, No Longer Route: IVP Active 2014 [facility], Drug form: SOLN, Q4H, Dosing Weight 70.909, kg, PRN Nausea & Vomiting, If N/V refractory to Zofran and Reglan,patient may receive Phenergan IVP per Dr. Gurrola, Start date: 01/21/15 10:38:00, Duration: 30 day, Stop date... LR IV 500 mL 500 mL, Rate: No Longer 125 ml/hr, Active 2014 [facility] Infuse over: 4 hr, Route: IV, Dosing Weight 70.909 kg, Total Volume: 500, Start date: 01/21/15 10:38:00, Duration: 30 day, Stop date: 02/20/15 10:37:00 Sodium Chloride 250 mL, Rate: Inactive 0.154 MEQ/ML 25 ml/hr, 2014 [facility] Injectable Infuse over: Solution 10 hr, Route: IV, Dosing Weight 70.909 kg, Total Volume: 250, Start date: 01/21/15 7:50:00, Duration: 1 doses or times, Stop date: 01/21/15 17:49:00 naloxegol 25 MG 25 mg=1 tab, Active Oral Tablet PO, QAM, [address] [facility] [Movantik] Refill(s) Lidocaine 0.1 mL, Route: Inactive Hydrochloride 10 INTRADERM, 2014 [facility] MG/ML Injectable Drug form: Solution INJ, PRE OP, [Xylocaine] Dosing Weight 70.909, kg, Start date: 01/21/15 6:00:00, Duration: 30 day, Stop date: 02/20/15 5:59:00Notes: Preservative free. (Same as: Xylocaine MPF) Lactated Ringers 1,000 mL, No Longer IV 1,000 mL Rate: 100 Active 2014 [facility] ml/hr, Infuse over: 10 hr, Route: IV, Dosing Weight 70.909 kg, Total Volume: 1,000, Start date: 01/21/15 5:31:00, Duration: 30 day, Stop date: 02/20/15 5:30:00 ceFAZolin 2 gm, 50 mL, Inactive Route: IVPB, 2014 [facility] Drug form: INJ, PRE OP, Start date: 01/21/15 5:00:00, Duration: 1 doses or times ULTRAM 50 MG TABS 1 tablet every Active [facility] 6 hours as 2014 [facility] needed for severe pain VALIUM 5 MG TABS one to two Active [facility] tabs PO 2014 [facility] Q4-6hrs prn muscle spasms COLACE 100 MG CAPS Take one Active cher capsule by 2014 [facility] mouth twice a day potassium chloride 10 mEq, PO, Active Daily, [address] [facility] Refill(s) Fish Oil 1,000 mg, PO, No Longer 2 X WEEK, [address] [facility] Refill(s)Speci al Instructions: 2 X WEEK multivitamin 1 tab, PO, Active Daily, [address] [facility] Refill(s) atorvastatin 80 mg 80 mg=1 tab, Active oral tablet PO, Daily, # 2014 [facility] 90 tab, 3 Refill(s) Metformin 1,000 mg=2 Active hydrochloride 500 tab, PO, BID, 2014 [facility] Oral Tablet 0 Refill(s) glimepiride 4 mg 4 mg=1 tab, Active oral tablet PO, Breakfast, 2014 # 30 tab, 0 Refill(s) sitagliptin 100 MG 100 mg=1 tab, Active Oral Tablet PO, Daily, # 2014 [facility] [Januvia] 30 tab, 0 Refill(s) Vitamin D3 5000 5,000 Active intl units oral IntlUnit=[address] [facility] tablet tab, PO, 2 X WEEK, 0 Refill(s)Speci al Instructions: 2 X WEEK Hydrochlorothiazid 1 tab, PO, Active e 25 MG / Daily, # [address] [facility] Lisinopril 20 MG tab, 0 Oral Tablet Refill(s) amitriptyline 25 25 mg=1 tab, Active [facility] mg oral tablet PO, Bedtime, # 2015 [facility] 30 tab, 1 Refill(s) hydromorphone 8 mg 8 mg=1 tab, Active 01/15/ oral tablet PO, Q4H, [address] [facility] Refill(s) Levothyroxine 88 microgram=1 Active 01/15/ Sodium 0.088 MG tab, PO, 2014 [facility] Oral Tablet Daily, # 30 [Synthroid] tab, 0 Refill(s) ALPRAZOLam 0.5 mg 0.5 mg=1 tab, No Longer 01/15/ oral tablet, PO, Bedtime, [address] [facility] disintegrating Refill(s) ALPRAZOLAM ER 0.5 Active [facility] [id number] 2014 [facility] SYNTHROID 100 MCG Active Mis TABS 2014 [facility] HYDROMORPHONE HCL Active [facility] 8 MG TABS 2014 [facility] AMITRIPTYLINE HCL Active [facility] 25 MG TABS 2014 [facility] LISINOPRIL-HYDROCH Active [facility] LOROTHIAZIDE 20-25 2014 [facility] MG TABS VITAMIN D3 5000 [facility] JANUVIA 100 MG Active [facility] TABS 2015 [facility] GLIMEPIRIDE 4 MG Active [facility] TABS 2015 [facility] METFORMIN HCL ER Active 500 MG [id number] 2014 [facility] ATORVASTATIN Active CALCIUM 80 MG TABS 2014 [facility] AMITRIPTYLINE HCL Active [facility] 25 MG TABS 2014 [facility] LISINOPRIL-HYDROCH Active [facility] LOROTHIAZIDE 20-25 2014 [facility] MG TABS JANUVIA 100 MG Active [facility] TABS 2015 [facility] GLIMEPIRIDE 4 MG Active [facility] TABS 2015 [facility] METFORMIN HCL ER Active Mis 500 MG [id number] 2014 [facility] Allergies, Adverse Reactions, Alerts Substance Category Reaction Severity Reaction Status Date Comments Source type Reported PREDNISONE Drug PREDNISONE [facility] allergy 5 Neuro predniSONE< Assertion Drug Active Data [place] sup>1</sup> allergy 5 migrated Medical from [facility] on 03/11/15. Originally documented as PREDNISONE. predniSONE Assertion Drug Active allergy [place] Immunizations No Data Provided for This Section Results Order Name Results Value Reference Date Interpretation Comments Source Range CHEM PANEL eGFR 83 05/01 Result Comment: The Medical eGFR is Center calculated using the CKD-EPI formula. In most young, healthy individuals the eGFR will be >90 mL/min/1.73m2 . The eGFR declines with age. An eGFR of 60-89 may be normal in some populations, particularly the elderly, for whom the CKD-EPI formula has not been extensively validated. Use of the eGFR is not recommended in the following populations:< br/>
Saniya viduals with unstable creatinine concentration s, including patients and those with serious co-morbid conditions.<b r/>
Patie nts with extremes in muscle mass or diet.

The data above are obtained from the National Kidney Disease Education Program (NKDEP) which additionally recommends that when the eGFR is used in patients with extremes of body mass index for purposes of drug dosing, the eGFR should be multiplied by the estimated BMI. CHEM PANEL POC 0.8 0.5 - 1.4 05/01 [facility] BLOOD BANK Platelet Product available 01/16 RESULTS product (01/16/15 8:58 AM) [facility] BLOOD BANK Antibody Negative 01/15 RESULTS Scrn (01/15/15 3:22 PM) [facility] BLOOD BANK ABO/Rh A POS 01/15 RESULTS /2014 [facility] ELECTROLYT AGAP 9.7 10.0 - 01/15 ES 20.0 /2014 [facility] ELECTROLYT eGFR 83 01/15 <sup>1</sup>R ES esult [facility] Comment: The eGFR is calculated using the CKD-EPI formula. In most young, healthy individuals the eGFR will be >90 mL/min/1.73m2 . The eGFR declines with age. An eGFR of 60-89 may be normal in some populations, particularly the elderly, for whom the CKD-EPI formula has not been extensively validated. Use of the eGFR is not recommended in the following populations:& lt;br/>
I ndividuals with unstable creatinine concentration s, including patients and those with serious co-morbid conditions.<b r/>
Patie nts with extremes in muscle mass or diet.

The data above are obtained from the National Kidney Disease Education Program (NKDEP) which additionally recommends that when the eGFR is used in patients with extremes of body mass index for purposes of drug dosing, the eGFR should be multiplied by the estimated BMI. ELECTROLYT Chloride Lvl 105 95 - 109 01/15 [facility] ELECTROLYT Potassium 3.7 3.5 - 5.1 01/[address] [facility] ELECTROLYT Sodium Lvl 142 135 - 145 01/15 [facility] ELECTROLYT Creatinine 0.8 0.5 - 1.4 01/[address] [facility] ELECTROLYT Glucose Lvl 172 70 - 99 01/15 <sup>2</sup>I nterpretive [facility] Data: Adult reference range values reflect the clinical guidelines
of the [place] [employer]. ELECTROLYT BUN 9 7 - 22 01/15 [facility] ELECTROLYT Calcium Lvl 9.0 8.5 - 10.5 01/15 [facility] ELECTROLYT CO2 31 24 - 32 01/15 [facility] HEMATOLOGY INR 1.06 0.85 - 01/15 <sup>3</sup>I 1.[address] [facility] Data: RECOMMENDED RANGES FOR PROTIME INR:
2.0-3.0 for most medical and surgical thromboemboli c states.
2.5-3.5 for artificial heart valves and recurrent embolism.<br/ >
INR SHOULD BE USED ONLY FOR PATIENTS ON STABLE ANTICOAGULANT THERAPY. HEMATOLOGY PT 13.8 12.0 - 01/[address] [facility] HEMATOLOGY PTT 32.8 22.9 - 01/15 <sup>4</sup>I 35.8 /[address] [facility] Data: Heparin Therapeutic Range: 57 - 92 Seconds HEMATOLOGY MPV 9.7 7.4 - 10.4 01/15 [facility] HEMATOLOGY Platelet 112 133 - 450 01/15 [facility] HEMATOLOGY MCHC 33.4 32.0 - 01/15 36.0 /2014 [facility] HEMATOLOGY RDW 13.1 11.5 - 01/[address] [facility] HEMATOLOGY MCH 31.7 27.0 - 01/15 31.0 /2014 [facility] HEMATOLOGY RBC 4.33 4.20 - 01/15 5.40 /2014 [facility] HEMATOLOGY WBC 10.0 3.7 - 10.4 01/15 /2014 [facility] HEMATOLOGY Hgb 13.7 12.0 - 01/15 MH 16.0 /2014 [facility] HEMATOLOGY Hct 41.2 36.0 - 01/15 MH 48.0 /2014 [facility] HEMATOLOGY MCV 95.1 80.0 - 01/15 MH 98.0 /2014 [facility] HEMATOLOGY Monocytes 4.7 2.0 - 12.0 01/15 /2014 [facility] HEMATOLOGY Eosinophils 2.9 0.0 - 4.0 01/15 /2014 [facility] HEMATOLOGY Lymphocytes 57.6 20.0 - 01/15 MH 40.0 /2014 [facility] HEMATOLOGY Monocytes # 0.5 0.0 - 0.8 01/15 /2014 [facility] HEMATOLOGY Eosinophils 0.3 0.0 - 0.5 01/15 MH # /2014 [facility] HEMATOLOGY Segs 34.6 45.0 - 01/15 MH 75.0 /2014 [facility] HEMATOLOGY RBC Morph Normal 01/15 (01/15/15 3:22 PM) /2014 [facility] HEMATOLOGY Plt Morph Normal 01/15 (01/15/15 3:22 PM) /2014 [facility] HEMATOLOGY Lymphocytes 5.8 1.0 - 5.5 01/15 MH # /2014 [facility] HEMATOLOGY Basophils 0.2 0.0 - 1.0 01/15 [facility] HEMATOLOGY Segs-Bands # 3.5 1.5 - 8.1 01/15 [facility] URINE AND UA Sq Epi Occasional Few /LPF 01/15 STOOL /LPF /2014 [facility] URINE AND UA RBC 0-2 /HPF 0 - 2 01/15 STOOL /2014 [facility] URINE AND UA WBC 0-2 /HPF None Seen 01/15 STOOL /HPF /2014 [facility] URINE AND UA 4.0 0.1 - 1.0 01/15 STOOL Urobilinogen /2014 [facility] URINE AND UA Leuk Est Negative Negative 01/15 STOOL (01/15/15 3:22 PM) /2014 [facility] URINE AND Micro? Performed 01/15 STOOL (01/15/15 3:22 PM) /2014 [facility] URINE AND UA Blood Small Negative 01/15 STOOL *ABN* /2014 [facility] (01/15/15 3:22 PM) URINE AND UA Nitrite Negative Negative 01/15 STOOL (01/15/15 3:22 PM) /2014 [facility] URINE AND UA Color Yellow Yellow 01/15 STOOL *NA* /2014 [facility] (01/15/15 3:22 PM) URINE AND UA pH 6.0 5.0 - 8.0 01/[address] [facility] URINE AND UA Spec Grav 1.025 <=1.030 01/[address] [facility] URINE AND UA Turbidity Clear Clear 01/15 STOOL (01/15/15 3:22 PM) [facility] URINE AND UA Glucose >=1000 Negative 01/15 STOOL mg/dL mg/dL [facility] URINE AND UA Protein Negative Negative 01/15 STO[facility] (01/15/15 3:22 PM) [facility] URINE AND UA Bili Negative Negative 01/15 STOOL *NA* [facility] (01/15/15 3:22 PM) URINE AND UA Ketones Negative Negative 01/15 STOOL *NA [facility] (01/15/15 3:22 PM) Pathology Reports No Data Provided for This Section Diagnostic Reports Report Value Date Source Spine lumbar w/wo EXAM: MRI LUMBAR SPINE WITHOUT AND WITH CONTRAST 2014 [facility] DATE: May 01, 2015 06:54:00 PM INDICATION: Lumbar radiculopathy COMPARISON: None available TECHNIQUE: [...] 3. L5 left partial laminectomy postsurgical change. Consultation Notes No Data Provided for This Section Discharge Summaries No Data Provided for This Section History and Physicals No Data Provided for This Section Vital Signs Vital Sign Value Date Comments Source Weight 153 02/26/2015 [facility] [place] [facility] Height 65 02/26/2015 [facility] Temperature Oral (F) 97.9 F 02/26/2015 [facility] [place] [facility] Heart Rate 88 02/26/2015 [facility] Systolic (mm Hg) 115 02/26/2015 [facility] [place] [facility] Diastolic (mm Hg) 87 02/26/2015 [facility] Weight 157 02/05/2015 [facility] Height 65.50 02/05/2015 [facility] Temperature Oral (F) 98.9 F 02/05/2015 [facility] Heart Rate 68 02/05/2015 [facility] [place] [facility] Systolic (mm Hg) 121 02/05/2015 [facility] [place] [facility] Diastolic (mm Hg) 68 02/05/2015 [facility] Systolic (mm Hg) 109 01/22/2015 [facility] Diastolic (mm Hg) 55 01/22/2015 [facility] Heart Rate 76 01/22/2015 [facility] Respitory Rate 17 01/22/2015 [facility] Temperature Oral (F) 98.0 F 01/22/2015 [facility] Systolic (mm Hg) 123 01/22/2015 [facility] Diastolic (mm Hg) 67 01/22/2015 [facility] Respitory Rate 18 01/22/2015 [facility] Heart Rate 65 01/22/2015 [facility] Temperature Oral (F) 97.7 F 01/22/2015 [facility] Respitory Rate 15 01/22/2015 [facility] Systolic (mm Hg) 114 01/22/2015 [facility] Diastolic (mm Hg) 63 01/22/2015 [facility] Heart Rate 67 01/22/2015 [facility] Temperature Oral (F) 98.4 F 01/22/2015 [facility] BMI Calculated 25.23 01/15/2015 [facility] Weight 70.909 01/15/2015 [facility] Height 167.64 cm 01/15/2015 [facility] Weight 156.5 12/13/2014 [facility] Height 65.50 12/13/2014 [facility] Temperature Oral (F) 97.5 F 12/13/2014 [facility] Heart Rate 67 12/13/2014 [facility] Systolic (mm Hg) 123 12/13/2014 [facility] Diastolic (mm Hg) 65 12/13/2014 [facility] Encounters Location Location Encounter Encounter Reason Attending ADM DC Status Source Details Type Number For Provider Date Date Visit [facility] [id number] Ang 12/13 12[facility]13 [facility] 3120 Izabela BENITEZ /2014 Neuro e [facility] Bed[facility] [id number] Ang 01/21 01/22 [facility] /2014 [facility] [id number] Ang 02/05 02/05 [facility] 1540 Izabela BENITEZ [place]2014 [place] [facility] [id number] Ang02/26 [facility] 1330 Izabela BENITEZ [place]2014 [place] [facility] [id number] [facility] [id number] Non 05/01 05/02 [facility] /2014 [facility] [id number] [facility] [id number] ANG 06/19 Active [facility] MIKAELAMARISELA [place] Procedures Procedure Code Date Perfomer Comments Source smoking/tobacco 14 12/13/2014 no [facility] cessation, patient education and counseling Abdominal [id number] AGE 26 [facility] hysterectomy<sup>1< Medical /sup> [place] CTR - Carpal tunnel [id number] 2004 [facility] release<sup>2</sup> [facility] Ligament [id number] 2010 [facility] repair<sup>3</sup> [facility] Miscellaneous [id number] 2013 [facility] operations<sup>4</s Medical up> [place] Assessment and Plan Assessment and Plan Date Source Extracted from:Title: Discharge Summary * Laminectomy female 01/22/2015 [facility] Author: Cinthya Koehler Date: 01/22/15 Discharge Information She was then discharged with [...] Education and Follow-up Counseled: patient, family. Extracted from:Title: Progress Note *- Lumbar lami POD#1 Author: Cinthya Koehler Date: 01/22/15 Impression and Plan Diagnosis: Lumbar stenosis (ICD9 [...] today days ). Ready for D/C: Yes. Plan of Care No Data Provided for This Section Social History Social History Date Source Social History TypeResponse 04/24/2015 [facility] Smoking Status Current every day smoker; Type: Cigarettes; Tobacco use per day: 25; Number of years: 40; Started at age: 13.0; Previous treatment: None; Ready to change: No; Concerns about tobacco use in household: No ; Exposure to Tobacco Smoke None; Cigarette Smoking Last 365 Days Yes; Reg Smoking Cessation Counseling No Social History TypeResponse 01/21/2015 [facility] Smoking Status Current every day smoker; Type: Cigarettes; Tobacco use per day: 25; Number of years: 40; Started at age: 15.0; Previous treatment: None; Ready to change: No; Concerns about tobacco use in household: No ; Exposure to Tobacco Smoke None; Cigarette Smoking Last 365 Days Yes; Reg Smoking Cessation Counseling No Family History No Data Provided for This Section Advance Directives No Data Provided for This Section Functional Status No Data Provided for This Section
--- OUTSIDE RECORDS SUMMARY | 2019-03-06 17:41 | XMS REPORT | Continuity of Care Document ---
:1960 Author Organization [facility] Care Team Providers Name Role Phone Nasir Gurrola MD Unavailable Insurance Providers Payer name Policy type / Coverage type Policy ID Covered constitution party ID Policy Harden AETNA (PPO) AETNA (PPO) Encounters Encounter Performer Location Date Office Visit Nasir Gurrola MD [facility] [place] Feb 05, 2015 Allergies, [...] Start Date Status ALPRAZOLAM ER 0.5 MG [id number] December 13, 2014 Active SYNTHROID 100 MCG [...] 2014 Active METFORMIN HCL ER 500 MG [id number] December 13, 2014 Active ATORVASTATIN CALCIUM 80 [...]
--- OUTSIDE RECORDS SUMMARY | 2019-03-06 17:41 | XMS REPORT | Continuity of Care Document ---
:1960 Author Organization [facility] Care Team Providers Name Role Phone Nasir Gurrola MD Unavailable Insurance Providers Payer name Policy type / Coverage type Policy ID Covered green party ID Policy Harden AETNA (PPO) AETNA (PPO) Encounters Encounter Performer Location Date Office Visit Nasir Gurrola MD [facility] December 13, 2014 Allergies, Adverse Reactions, Alerts [...] Start Date Status ALPRAZOLAM ER 0.5 MG [id number] December 13, 2014 Active SYNTHROID 100 MCG [...] 2014 Active METFORMIN HCL ER 500 MG [id number] December 13, 2014 Active ATORVASTATIN CALCIUM 80 [...]
[2019-03-06] MEDS ORDERED: NA CHLORIDE 0.9% 1,000 ML ONE (18:10)
[2019-03-06] MEDS ORDERED: MORPHINE 4 MG/ML SYR ONE ×2 (18:10→21:02)
[2019-03-06] MEDS ORDERED: ONDANSETRON 4 MG/2 ML VIAL ONE (18:22)
[2019-03-06 18:26] LABS: Absolute Lymphocytes (CBC) 2.1 K/uL (0.7-4.9); Basophils % 0.2 % (0-1.3); Lymphocytes % 27.3 % (15.3-44.8); MPV 9.4 fL (7.6-11.3); RBC Red Blood Cell Count 4.35 M/uL (3.86-4.86)
[2019-03-06 18:38] LABS: Albumin 3.4 g/dL (3.4-5.0); Bilirubin Direct 0.3 mg/dL (0-0.2); Bilirubin Total 0.6 mg/dL (0.2-1.0); Potassium 3.9 mmol/L (3.5-5.1); Protein, Total 7.4 g/dL (6.4-8.2)
[2019-03-06 20:14] LABS: Urine Blood NEGATIVE (NEG); Urine Glucose 1+ (NEG); Urine Protein NEGATIVE (NEG); Urine Specific Gravity 1.015 (1.005-1.030)
--- NOTE | 2019-03-06 20:31 | RAD REPORT ---
EXAM DESCRIPTION: CTAbdomen Pelvis W Contrast - 03/06/2019 8:14 pm CLINICAL HISTORY: Abdominal pain. s/p endoscopy and colonoscopy, severe pain, dark stool COMPARISON: Abdomen Pelvis W Contrast dated 11/21/2015; CT ABD PELVIS W CONTRAST dated 06/09/2015; C T ABD PELVIS W CONTRAST dated 12/02/2012 TECHNIQUE: Biphasic CT imaging of the abdomen and pelvis was performed with 100 ml non-ionic IV cont rast. All CT scans are performed using dose optimization technique as appropriate and may include automated exposure control or mA/KV adjustment according to patient size. FINDINGS: The lung bases are clear. Nodular liver contour is seen compatible with mild liver cirrhosis. The spleen, pancreas, adrenal gla nds and kidneys are within normal limits. No hydronephrosis or mass. Small benign renal cysts are not ed bilaterally. No bowel obstruction, free air, free fluid or abscess. The appendix is not identified as a discrete structure, however, no secondary findings of appendicitis are identified. No evidence of significan t lymphadenopathy. No suspicious bony findings. IMPRESSION: No acute intra-abdominal or pelvic finding. Mild liver cirrhosis.
--- NOTE | 2019-03-06 21:02 | ER ---
Nurse's Notes [facility] Name: Saba Ahumada Age: 58 yrs Sex: Female : 1960 Arrival Date: 03/06/2019 Time: 17:44 Bed 24 Private MD: Diagnosis: Unspecified abdominal pain Presentation: 03/06 17:44 Presenting complaint: EMS states: patient had endoscopy and colonoscopy today \T\ 1000 am mg2 in [place]. now patient complains of severe back, neck and abdominal pain with loose black stool. Transition of care: patient was not received from another setting of care. Onset of symptoms was March 06, 2019. Risk Assessment: Do you want to hurt yourself or someone else? Patient reports no desire to harm self or others. Initial Sepsis Screen: Does the patient meet any 2 criteria? No. Patient's initial sepsis screen is negative. Does the patient have a suspected source of infection? No. Patient's initial sepsis screen is negative. Care prior to arrival: Medication(s) given: Normal saline infusion, 350 ml. 17:44 Method Of Arrival: EMS: [facility] mg2 17:44 Acuity: NAYLA 2 mg2 Historical: - Allergies: 17:53 Prednisone; mg2 - PMHx: 17:53 Anxiety; Cirrhosis; Diabetes - IDDM; Fibromyalgia; Hypertension; Hypothyroidism; mg2 - PSHx: 17:53 Carpal Tunnel Repair; Hysterectomy; right foot surgery; mg2 - Immunization history:: Flu vaccine is not up to date. - Social history:: Smoking status: Patient uses tobacco products, smokes one pack cigarettes per day. - Ebola Screening: : No symptoms or risks identified at this time. - Family history:: not pertinent. - Hospitalizations: : No recent hospitalization is reported. Screenin:56 Abuse screen: Denies threats or abuse. Denies injuries from another. Nutritional mg2 screening: No deficits noted. Tuberculosis screening: No symptoms or risk factors identified. Fall Risk IV access (20 points). Assessment: 17:56 General: Appears uncomfortable, Behavior is crying, restless. Pain: Complains of pain mg2 in back and abdomen and neck Pain does not radiate. Pain currently is 10 out of 10 on a pain scale. Neuro: Level of Consciousness is awake, alert, obeys commands, Oriented to person, place, time, situation. Cardiovascular: Capillary refill < 3 seconds Patient's skin is warm and dry. Respiratory: Airway is patent Respiratory effort is even, unlabored, Respiratory pattern is regular, symmetrical. GI: Reports lower abdominal pain, upper abdominal pain, black stool. : No signs and/or symptoms were reported regarding the genitourinary system. EENT: No signs and/or symptoms were reported regarding the EENT system. Derm: Skin is intact, is healthy with good turgor, Skin is pink, warm \T\ dry. normal. Musculoskeletal: Circulation, motion, and sensation intact. Capillary refill < 3 seconds. 21:11 Reassessment: Patient appears in no apparent distress at this time. patient tolerated mg2 oral challenge. Patient states feeling better. 21:37 Reassessment: Patient appears in no apparent distress at this time. Patient states mg2 feeling better. Vital Signs: 17:51 BP 135 / 54; Pulse 78; Resp 18; Pulse Ox 100% on R/A; Weight 68.04 kg; Height 5 ft. 6 mg2 in. (167.64 cm); Pain 10/10; 19:00 Temp 97.9(O); mg2 19:15 BP 144 / 62; Pulse 73; Resp 18; Temp 97.8(O); Pulse Ox 100% on R/A; mg2 21:38 BP 135 / 70; Pulse 70; Resp 18; Temp 98.5; Pulse Ox 100% on R/A; Pain 1/10; mg2 17:51 Body Mass Index 24.21 (68.04 kg, 167.64 cm) mg2 ED Course: 17:44 Patient arrived in ED. mg2 17:51 Triage completed. mg2 17:53 Hakan Lawson MD is Attending Physician. rn 17:55 Arm band placed on. mg2 17:55 Maintain EMS IV. Dressing intact. Good blood return noted. Site clean \T\ dry. Gauge \T\ mg 2 site: 18 \T\ LAC. 18:06 Rich Tejada RN is Primary Nurse. mg2 18:36 Davonte Laurent PA is PHCP. cp 19:00 Patient has correct armband on for positive identification. supervisor transcribing operators on. Pulse mg2 ox on. NIBP on. Door closed. Warm blanket given. 19:18 Davonte Laurent PA is PHCP. cp 20:05 Assisted with bedpan. mg2 20:10 CT completed. Patient tolerated procedure well. Patient moved to CT via stretcher. nj Patient moved back from CT. 20:15 CT Abd/Pelvis - PO and IV Contrast In Process Unspecified. EDMS 21:13 No provider procedures requiring assistance completed. mg2 21:38 IV discontinued, intact, bleeding controlled, No redness/swelling at site. Pressure mg2 dressing applied. Administered Medications: 18:20 Drug: NS 0.9% 1000 ml Route: IV; Rate: 1000 ml; Site: left antecubital; mg2 19:44 Follow up: Response: No adverse reaction; IV Status: Completed infusion; IV Intake: mg2 1000ml 18:20 Drug: morphine 4 mg Route: IVP; Site: left antecubital; mg2 19:44 Follow up: Response: No adverse reaction; Marked relief of symptoms mg2 18:30 Drug: Zofran 4 mg Route: IVP; Site: left antecubital; mg2 19:44 Follow up: Response: No adverse reaction; Marked relief of symptoms mg2 21:08 Drug: morphine 4 mg Route: IVP; Site: left antecubital; mg2 21:09 Follow up: Response: No adverse reaction; Medication administered at discharge. mg2 21:10 Follow up: Response: RASS: Alert and Calm (0) mg2 Intake: 19:44 IV: 1000ml; Total: 1000ml. mg2 Outcome: 21:01 Discharge ordered by . cp 21:38 Discharged to home via wheelchair, with family. mg2 21:38 Condition: stable 21:38 Discharge instructions given to patient, family, Instructed on discharge instructions, follow up and referral plans. medication usage, Demonstrated understanding of instructions, follow-up care, medications, Prescriptions given X 1. 21:39 Patient left the ED. mg2 Signatures: Dispatcher [employer] EDMS Hakan Lawson MD MD rn Davonte Laurent PA PA cp Jordan, Nathan nj Gardose, Michele, RN RN mg2 Corrections: (The following items were deleted from the chart) 17:58 17:44 Care prior to arrival: None. mg2 mg2
--- NOTE | 2019-03-06 21:03 | EDPHYS ---
Physician Documentation [facility] Name: Saba Ahumada Age: 58 yrs Sex: Female : 1960 Arrival Date: 03/06/2019 Time: 17:44 Bed 24 Private MD: ED Physician Hakan Lawson HPI: 03/06 18:03 This 58 yrs old Female presents to ER via EMS with complaints of abdominal rn pain. 18:03 The patient presents with abdominal pain that is diffuse. Onset: The symptoms/episode rn began/occurred today. The symptoms do not radiate. Associated signs and symptoms: Pertinent positives: dark stool, Pertinent negatives: chest pain, fever, vomiting. The symptoms are described as achy, crampy. Modifying factors: The symptoms are alleviated by nothing, the symptoms are aggravated by movement, touching the area. Severity of pain: At its worst the pain was moderate in the emergency department the pain is unchanged. The patient has not experienced similar symptoms in the past. Just had EGD and colonoscopy today in [place], has cirrhosis and was getting screening done. Reports went well, went home feeling fine. Shortly after getting home began with moderate to severe abd pain, reports noticed black stool, no vomiting. Takes a lot of pain medications daily and family concerned maybe worse pain due to not taking meds in preparation for colonoscopy. . Historical: - Allergies: 17:53 Prednisone; mg2 - PMHx: 17:53 Anxiety; Cirrhosis; Diabetes - IDDM; Fibromyalgia; Hypertension; Hypothyroidism; mg2 - PSHx: 17:53 Carpal Tunnel Repair; Hysterectomy; right foot surgery; mg2 - Immunization history:: Flu vaccine is not up to date. - Social history:: Smoking status: Patient uses tobacco products, smokes one pack cigarettes per day. - Ebola Screening: : No symptoms or risks identified at this time. - Family history:: not pertinent. - Hospitalizations: : No recent hospitalization is reported. ROS: 18:03 Constitutional: Negative for fever, chills, and weight loss, Eyes: Negative for injury, rn pain, redness, and discharge, Neck: Negative for injury, pain, and swelling, Cardiovascular: Negative for chest pain, palpitations, and edema, Respiratory: Negative for shortness of breath, cough, wheezing, and pleuritic chest pain, Abdomen/GI: + abd pain and dark stool MS/Extremity: Negative for injury and deformity, Skin: Negative for injury, rash, and discoloration, Neuro: Negative for headache, weakness, numbness, tingling, and seizure. Exam: 18:03 Constitutional: This is a well developed, well nourished patient who is awake, alert, rn moaning all the way to room, when family talks to her, she calms down and stops moaning. Head/Face: Normocephalic, atraumatic. ENT: MMM Cardiovascular: Regular rate and rhythm. No pulse deficits. Respiratory: Lungs have equal breath sounds bilaterally, clear to auscultation. No increased work of breathing, no retractions or nasal flaring. Abdomen/GI: soft, + mild tenderness in all 4 quadrants, no rebound, no masses MS/ Extremity: Pulses equal, no cyanosis. Neurovascular intact. Full, normal range of motion. Equal circumference. Neuro: Awake and alert, GCS 15, oriented to person, place, time, and situation. Cranial nerves II-XII grossly intact. Motor strength 5/5 in all extremities. Sensory grossly intact. Cerebellar exam normal. 18:45 ECG was reviewed by the Attending Physician. cp Vital Signs: 17:51 BP 135 / 54; Pulse 78; Resp 18; Pulse Ox 100% on R/A; Weight 68.04 kg; Height 5 ft. 6 mg2 in. (167.64 cm); Pain 10/10; 19:00 Temp 97.9(O); mg2 19:15 BP 144 / 62; Pulse 73; Resp 18; Temp 97.8(O); Pulse Ox 100% on R/A; mg2 21:38 BP 135 / 70; Pulse 70; Resp 18; Temp 98.5; Pulse Ox 100% on R/A; Pain 1/10; mg2 17:51 Body Mass Index 24.21 (68.04 kg, 167.64 cm) mg2 MDM: 17:54 Patient medically screened. rn 19:00 Differential diagnosis: bowel obstruction, GI Bleed, non-specific abd pain, bowel cp perforation. 21:00 Data reviewed: vital signs, nurses notes, lab test result(s), radiologic studies, CT cp scan, I have discussed the patient's presentation/case with the attending Emergency Department Physician; and as a result, I will discharge patient. 21:00 Counseling: I had a detailed discussion with the patient and/or guardian regarding: the cp historical points, exam findings, and any diagnostic results supporting the discharge/admit diagnosis, lab results, radiology results, to return to the emergency department if symptoms worsen or persist or if there are any questions or concerns that arise at home. 21:00 Response to treatment: the patient's symptoms have markedly improved after treatment, and as a result, I will discharge patient. Special discussion: Based on the patient's Hx, exam, and Dx evaluation, there is no indication for emergent surgery or inpatient Tx. It is understood by the patient/guardian that if the Sx's persist or worsen they need to return immediately for re-evaluation. 03/06 18:03 Order name: Basic Metabolic Panel; Complete Time: : 03/06 19:19 Interpretation: Normal except: CL 112; GLUC 238; BUN 21; GFR 63. 03/06 18:03 Order name: CBC with Diff; Complete Time: : 03/06 19:19 Interpretation: Abnormal: PLT 96. 03/06 18:03 Order name: Creatinine for Radiology; Complete Time: : 03/06 18:03 Order name: Hepatic Function; Complete Time: : 03/06 19:19 Interpretation: Normal except: ALK 120; BILID 0.3; GLOB 4.0; A/G 0.9. 03/06 18:03 Order name: Lipase; Complete Time: 19:19 03/06 19:20 Interpretation: Within normal limits: LIP 125. 03/06 18:03 Order name: Type And Screen; Complete Time: 19:50 03/06 19:50 Interpretation: Reviewed. 03/06 18:03 Order name: CT Abd/Pelvis - PO and IV Contrast; Complete Time: 20:55 03/06 18:24 Order name: Occult Blood; Complete Time: 20:55 03/06 20:56 Interpretation: Reviewed. 03/06 20:09 Order name: Urine Dipstick--Ancillary (enter results); Complete Time: 20:55 cm6 03/06 20:09 Order name: Urine --Ancillary (enter results); Complete Time: 20:55 cm6 03/06 18:03 Order name: IV Saline Lock; Complete Time: 18:07 03/06 18:03 Order name: Labs collected and sent; Complete Time: 18:07 rn 03/06 18:03 Order name: EKG; Complete Time: 18:04 rn 03/06 18:03 Order name: EKG - Nurse/Tech; Complete Time: 18:30 rn 03/06 21:00 Order name: PO challenge; Complete Time: 21:08 cp EC:45 Rate is 81 beats/min. Rhythm is regular. NE interval is normal. QRS interval is normal. cp QT interval is normal. Interpreted by me. Reviewed by me. Administered Medications: 18:20 Drug: NS 0.9% 1000 ml Route: IV; Rate: 1000 ml; Site: left antecubital; mg2 19:44 Follow up: Response: No adverse reaction; IV Status: Completed infusion; IV Intake: mg2 1000ml 18:20 Drug: morphine 4 mg Route: IVP; Site: left antecubital; mg2 19:44 Follow up: Response: No adverse reaction; Marked relief of symptoms mg2 18:30 Drug: Zofran 4 mg Route: IVP; Site: left antecubital; mg2 19:44 Follow up: Response: No adverse reaction; Marked relief of symptoms mg2 21:08 Drug: morphine 4 mg Route: IVP; Site: left antecubital; mg2 21:09 Follow up: Response: No adverse reaction; Medication administered at discharge. mg2 21:10 Follow up: Response: RASS: Alert and Calm (0) mg2 Disposition: 03/07 17:58 Co-signature as Attending Physician, Hakan Lawson MD. rn Disposition: 03/06/19 21:01 Discharged to Home. Impression: Unspecified abdominal pain. - Condition is Stable. - Discharge Instructions: Abdominal Pain, Adult. - Prescriptions for Zofran 4 mg Oral Tablet - take 1 tablet by ORAL route every 12 hours As needed; 20 tablet. - Medication Reconciliation Form, Thank You Letter, Antibiotic Education, Prescription Opioid Use form. - Follow up: Private Physician; When: 1 - 2 days; Reason: Recheck today's complaints. - Problem is new. - Symptoms have improved. Signatures: Dispatcher [employer] EDMS Hakan Lawson MD MD rn Davonte Laurent PA PA cp Gardose, Michele, RN RN mg2 Corrections: (The following items were deleted from the chart) 03/06 21:39 21:01 03/06/2019 21:01 Discharged to Home. Impression: Unspecified abdominal pain. mg2 Condition is Stable. Forms are Medication Reconciliation Form, Thank You Letter, Antibiotic Education, Prescription Opioid Use. Follow up: Private Physician; When: 1 - 2 days; Reason: Recheck today's complaints. Problem is new. Symptoms have improved. cp
[2019-03-06 22:11] VITALS: O2SAT 100
[2019-03-06 22:15] VITALS: BP 135/70; TEMP 98.5
--- NOTE | 2019-03-07 07:26 | EKG ---
Test Date: 2019-03-06 Test Time: 18:27:45 Tack Coverer: MG MEASUREMENT RESULTS: Intervals: Rate: 81 MD: 170 QRSD: 82 QT: 404 QTc: 469 [place]: P: 39 MD: 170 QRS: 60 T: 51 INTERPRETIVE STATEMENTS: Normal sinus rhythm with sinus arrhythmia Normal ECG Compared to ECG 08/27/2017 22:05:11 No significant changes Electronically Signed On 03-07-19 07:26:03 CDT by Nikolay Dior
== END 2019-03-06 21:39 | disposition home or self-care (01) ==
LOC: ER 17:36
DX: R10.9 Unspecified abdominal pain (principal); I10 Essential (primary) hypertension; F17.210 Nicotine dependence, cigarettes, uncomplicated; Z88.8 Allergy status to other drugs, medicaments and biological substances; Z98.890 Other specified postprocedural states
CPT/HCPCS: 85025; 80048; 36415; 86900; 86850; 82274; 81025; 86901; 80076; 81003; 83690; 74177; Q9967; J7030; J2405; 93005; 96361; 96374; 96375; 99285

== ENCOUNTER 2023-02-22 14:29 | Emergency (ER) | payer OTHER ==
[2023-02-22 15:23] LABS: Hematocrit 39.9 % (36.0-45.0); Lymphocytes % 40.8 % (15.3-44.8); MCV 94.2 fL (80-100); MPV 8.5 fL (7.6-11.3); Platelets 78 thou/uL (152-406); RBC Red Blood Cell Count 4.23 M/uL (3.86-4.86)
[2023-02-22 15:25] LABS: Blood Morphology Comment NOT SEEN (NOT SEEN); Platelet Estimate DECR; White Blood Cell Scan OK (OK)
[2023-02-22] MEDS ORDERED: INSULIN -REGULAR HUMAN 50 UNIT/0.5 ML ML ONE (15:28)
[2023-02-22 15:40] LABS: SARS-CoV-2 Antigen Rapid Res Negative (Negative)
[2023-02-22] MEDS ORDERED: TRAMADOL HCL 50 MG TAB ONE (16:05)
--- NOTE | 2023-02-22 17:03 | ER ---
Nurse's Notes [facility] Name: Saba Ahumada Age: 62 yrs Sex: Female : 1960 Arrival Date: 02/22/2023 Time: 14:29 Bed 5 Private MD: Diagnosis: Hyperglycemia, unspecified;Dehydration Presentation: 02/22 14:46 Chief complaint: Patient states: fatigue and elevated blood sugars X4 days. pt states cm10 that she took her sugar and it was reading in the 500s and then reading "hi". Coronavirus screen: Client denies travel out of the [place] in the last 14 days. Ebola Screen: No symptoms or risks identified at this time. Initial Sepsis Screen: Does the patient meet any 2 criteria? No. Patient's initial sepsis screen is negative. Does the patient have a suspected source of infection? No. Patient's initial sepsis screen is negative. Risk Assessment: Do you want to hurt yourself or someone else? Patient reports no desire to harm self or others. Onset of symptoms was February 22, 2023. 14:46 Method Of Arrival: Ambulatory cm10 14:46 Acuity: NAYLA 3 cm10 Historical: - Allergies: 14:48 Prednisone; cm10 - PMHx: 14:48 Anxiety; Cirrhosis; Diabetes - IDDM; Fibromyalgia; Hypertension; Hypothyroidism; cm10 - Immunization history:: Adult Immunizations unknown. - Social history:: Smoking status: Patient reports the use of cigarette tobacco products, smokes one pack cigarettes per day. - Family history:: not pertinent. - Hospitalizations: : No recent hospitalization is reported. Screenin:14 [facility] ED Fall Risk Assessment (Adult) History of falling in the last 3 months, iw including since admission Score/Fall Risk Level 0 - 2 = Low Risk. Abuse screen: Denies threats or abuse. Denies injuries from another. Nutritional screening: No deficits noted. Tuberculosis screening: No symptoms or risk factors identified. Assessment: 15:13 General: Appears in no apparent distress. Behavior is calm, cooperative. General: iw Reports fatigue for. Pain: Complains of pain in back. Neuro: Level of Consciousness is awake, alert, obeys commands, Oriented to person, place, time, situation, Moves all extremities. Full function. Cardiovascular: Patient's skin is warm and dry. Respiratory: Respiratory effort is even, unlabored, Respiratory pattern is regular, symmetrical. Derm: Skin is fragile. Musculoskeletal: Range of motion: intact in all extremities. Vital Signs: 14:46 BP 108 / 50; Pulse 67; Resp 18; Temp 97.9; Pulse Ox 98% ; Weight 68.04 kg; Height 5 ft. cm10 5 in. ; Pain 8/10; 14:46 Body Mass Index 24.96 (68.04 kg, 165.1 cm) cm10 14:46 Pain Scale: Adult cm10 ED Course: 14:30 Patient arrived in ED. rg4 14:32 Hakan Lawson MD is Attending Physician. rn 14:48 Triage completed. cm10 14:48 Arm band placed on Patient placed in an exam room, on a stretcher. cm10 14:50 Marnie Moran, RANDALL is Primary Nurse. iw 15:07 Inserted saline lock: 20 gauge in right antecubital area, using aseptic technique. iw Blood collected. 15:21 SARS RAPID Sent. iw 15:58 No provider procedures requiring assistance completed. iw 16:20 Patient has correct armband on for positive identification. Provided Education on: high iw blood sugar . 19:20 IV discontinued, intact, bleeding controlled, No redness/swelling at site. Pressure iw dressing applied. Administered Medications: 15:21 Drug: NS 0.9% IV 1000 ml Route: IV; Rate: 1000 ml; Site: right antecubital; iw 16:30 Follow up: IV Status: Completed infusion iw 15:21 Drug: Insulin Regular Human Sub-Q 10 units {Co-Signature: aa5 (Suzie Thomas RN).} iw Route: Sub-Q; Site: right upper abdomen; 16:30 Follow up: Response: No adverse reaction; Blood sugar is lowered iw 15:58 Drug: traMADol PO 50 mg Route: PO; iw 16:15 Follow up: Response: No adverse reaction iw Medication: 15:14 VIS not applicable for this client. iw Point of Care Testing: Blood Glucose: 15:59 Blood Glucose: 336 mg/dL; iw 16:55 Blood Glucose: 268 mg/dL; rs5 Ranges: Outcome: 17:02 Discharge ordered by . rn 17:26 Patient left the ED. iw 19:25 Discharged to home ambulatory, with family. iw 19:25 Condition: good 19:25 Discharge instructions given to patient, family, Instructed on discharge instructions, follow up and referral plans. Demonstrated understanding of instructions, follow-up care. Signatures: Marnie Moran RN RN Hakan Kramer MD MD rn Garcia, Rubi rg4 Lior Newsome RN RN rs5 Kaitlynn Ulloa RN RN cm10 Suzie Thomas RN aa5
--- NOTE | 2023-02-22 17:03 | EDPHYS ---
Physician Documentation [facility] Name: Saba Ahumada Age: 62 yrs Sex: Female : 1960 Arrival Date: 02/22/2023 Time: 14:29 Bed 5 Private MD: ED Physician Hakan Lawson HPI: 02/22 14:47 This 62 yrs old Female presents to ER via Unassigned with complaints of High rn Blood Sugar. 14:47 The patient or guardian reports hyperglycemia, that was potentially precipitated by no rn particular event. Onset: The symptoms/episode began/occurred at an unknown time. Associated signs and symptoms: Pertinent positives: fatigue, Pertinent negatives: diarrhea. Current symptoms: In the emergency department the patient's symptoms are unchanged from the initial presentation. The patient has not experienced similar symptoms in the past. The patient has not recently seen a physician. Pt reports blood sugar read "high" today, reports a couple of days of fatigue and generalized weakness. + increased urinary frequency. No fever. No cough/sob/chest pain/abd pain/vomiting/diarrhea. . Historical: - Allergies: 14:48 Prednisone; cm10 - PMHx: 14:48 Anxiety; Cirrhosis; Diabetes - IDDM; Fibromyalgia; Hypertension; Hypothyroidism; cm10 - Immunization history:: Adult Immunizations unknown. - Social history:: Smoking status: Patient reports the use of cigarette tobacco products, smokes one pack cigarettes per day. - Family history:: not pertinent. - Hospitalizations: : No recent hospitalization is reported. ROS: 14:47 Constitutional: Negative for fever, chills, and weight loss, Cardiovascular: Negative rn for chest pain, palpitations, and edema, Respiratory: Negative for shortness of breath, cough, wheezing, and pleuritic chest pain, Abdomen/GI: Negative for abdominal pain, nausea, vomiting, diarrhea, and constipation, Back: Negative for injury and pain, MS/Extremity: Negative for injury and deformity, Skin: Negative for injury, rash, and discoloration, Neuro: Negative for headache, numbness, tingling, and seizure. Exam: 14:47 Constitutional: This is a well developed, well nourished patient who is awake, alert, rn and in no acute distress. Ambulatory to room without difficulty or assistance. Head/Face: Normocephalic, atraumatic. ENT: dry MM Cardiovascular: Regular rate and rhythm. No pulse deficits. Respiratory: No increased work of breathing, no retractions or nasal flaring. Abdomen/GI: soft, non-tender Skin: Warm, dry MS/ Extremity: Pulses equal, no cyanosis Neuro: Awake and alert, GCS 15, oriented to person, place, time, and situation. Cranial nerves II-XII grossly intact. Motor strength 5/5 in all extremities. Sensory grossly intact. Cerebellar exam normal. Normal gait. Vital Signs: 14:46 BP 108 / 50; Pulse 67; Resp 18; Temp 97.9; Pulse Ox 98% ; Weight 68.04 kg; Height 5 ft. cm10 5 in. ; Pain 8/10; 14:46 Body Mass Index 24.96 (68.04 kg, 165.1 cm) cm10 14:46 Pain Scale: Adult cm10 MDM: 14:32 Patient medically screened. rn 16:52 Differential diagnosis: hyperglycemia, dehydration. Data reviewed: vital signs, nurses rn notes. 17:01 Counseling: I had a detailed discussion with the patient and/or guardian regarding: the rn historical points, exam findings, and any diagnostic results supporting the discharge/admit diagnosis, lab results, the need for outpatient follow up, to return to the emergency department if symptoms worsen or persist or if there are any questions or concerns that arise at home. Response to treatment: the patient's symptoms have markedly improved after treatment, patient is well hydrated. and as a result, I will discharge patient. Special discussion: I discussed with the patient/guardian in detail that at this point there is no indication for admission to the hospital. It is understood, however, that if the symptoms persist or worsen the patient needs to return immediately for re-evaluation. Based on the history and exam findings, there is no indication for further emergent testing or inpatient evaluation. I discussed with the patient/guardian the need to see the primary care provider for further evaluation of the symptoms. ED course: GLucose down to 268, stable vitals, no other acute findings, no indication for emergent admission at this time, will dc home with continuation of her diabetic medication and return precautions given/understood. . 02/22 14:46 Order name: CBC with Diff; Complete Time: 15:32 rn 02/22 14:46 Order name: Basic Metabolic Panel; Complete Time: 15:32 rn 02/22 14:46 Order name: SARS RAPID; Complete Time: 15:47 rn 02/22 14:56 Order name: Glucose, Ancillary Testing; Complete Time: 14:59 EDMS 02/22 15:25 Order name: CBC Smear Scan; Complete Time: 15:32 EDMS 02/22 16:09 Order name: Glucose, Ancillary Testing; Complete Time: 16:19 EDMS 02/22 17:03 Order name: Glucose, Ancillary Testing; Complete Time: 17:22 EDMS 02/22 14:46 Order name: IV Start; Complete Time: 15:22 rn 02/22 14:46 Order name: Glucose Level; Complete Time: 15:07 rn Administered Medications: 15:21 Drug: NS 0.9% IV 1000 ml Route: IV; Rate: 1000 ml; Site: right antecubital; iw 16:30 Follow up: IV Status: Completed infusion iw 15:21 Drug: Insulin Regular Human Sub-Q 10 units {Co-Signature: aa5 (Suzie Thomas RN).} iw Route: Sub-Q; Site: right upper abdomen; 16:30 Follow up: Response: No adverse reaction; Blood sugar is lowered iw 15:58 Drug: traMADol PO 50 mg Route: PO; iw 16:15 Follow up: Response: No adverse reaction iw Point of Care Testing: Blood Glucose: 15:59 Blood Glucose: 336 mg/dL; iw 16:55 Blood Glucose: 268 mg/dL; rs5 Ranges: Critical Glucose Levels:Adult <50 mg/dl or >400 mg/dl <40 mg/dl or >180 mg/dl Disposition Summary: 02/22/23 17:02 Discharge Ordered Location: Home rn Problem: new rn Symptoms: have improved rn Condition: Stable rn Diagnosis - Hyperglycemia, unspecified rn - Dehydration rn Followup: rn - With: Private Physician - When: As needed - Reason: Recheck today's complaints, Re-evaluation by your physician Discharge Instructions: - Discharge Summary Sheet rn - Dehydration, Adult rn - Hyperglycemia rn - Blood Glucose Monitoring, Adult rn Forms: - Medication Reconciliation Form rn - Thank You Letter rn - Antibiotic rn wellness - Prescription Opioid Use rn - Patient Portal Instructions rn Signatures: Dispatcher [employer] Marnie Delarosa RN RN iw Hakan Lawson MD MD rn Hall, Patricia, RN RN ph Carmelo Jones, DO DO ms3 Kaitlynn Ulloa RN RN cm10 Suzie Thomas RN aa5 Corrections: (The following items were deleted from the chart) 17:26 14:46 BETA HYDROXYBUTYRATE+C.LAB.BRZ ordered. [place] lamar
[2023-02-22 17:39] VITALS: BP 108/50; TEMP 97.9; O2SAT 98
== END 2023-02-22 17:26 | disposition home or self-care (01) ==
LOC: ER 14:29
DX: E11.65 Type 2 diabetes mellitus with hyperglycemia (principal); E86.0 Dehydration; F17.210 Nicotine dependence, cigarettes, uncomplicated; Z20.822 Contact with and (suspected) exposure to COVID-19; Z88.8 Allergy status to other drugs, medicaments and biological substances
CPT/HCPCS: 85025; 80048; 36415; 82947 ×3; 96360; 96372; 99284; 87811; J1815

== ENCOUNTER 2024-07-22 20:11 | Emergency (ER) | payer OTHER ==
[2024-07-22] MEDS ORDERED: NA CHLORIDE 0.9% 1,000 ML ONE ×2 (20:35→21:17)
--- NOTE | 2024-07-22 20:40 | RAD REPORT ---
EXAMINATION: ONE VIEW CHEST XR CLINICAL INDICATION: CHEST PAIN TECHNIQUE: Frontal chest projection is submitted. Examination is limited by patient positioning and t echnique. COMPARISON: 10/29/2016 FINDINGS: The lungs are diffusely emphysematous but grossly clear. The heart is upper limit of normal in size. No displaced fractures identified. IMPRESSION: COPD without an acute process suspected.
[2024-07-22 21:15] LABS: Absolute Eosinophils 0.1 K/uL (0-0.5); Absolute Lymphocytes (CBC) 1.3 K/uL (0.7-4.9); Absolute Monocytes 0.2 K/uL (0.1-1.3); Absolute Neutrophil 2.5 K/uL (1.8-8.0); Basophils % 0.2 % (0-1.3); Eosinophils % 1.8 % (0-4.4); Hematocrit 42.4 % (36.0-45.0); Hemoglobin 14.1 g/dL (12.0-15.0); Lymphocytes % 32.6 % (15.3-44.8); MCH 32.7 pg (27.0-35.0); MCHC 33.3 g/dL (32.0-36.0); MCV 98.1 fL (80-100); MPV 10.3 fL (7.6-11.3); Monocytes % 5.5 % (3.3-12.3); Neutrophils % 59.9 % (41.7-73.7); Nucleated Red Blood Cells % 0.2 % (0-0); Platelets 45 thou/uL (152-406); RBC Red Blood Cell Count 4.32 M/uL (3.86-4.86); Red Cell Distribution Width 15.3 % (12.1-15.2)
[2024-07-22 21:16] LABS: Specific Gravity 1.028 (1.005-1.030); Sqamous Epithelial <5 /HPF (None Seen); Urine Bacteria None Seen /HPF (<20); Urine Bilirubin NEGATIVE (Negative); Urine Blood Trace (Negative); Urine Clarity Clear (Clear); Urine Color Colorless (Yellow); Urine Culture Reflex Order NOT NEEDED; Urine Glucose 4+ (Over) (Negative); Urine Ketones NEGATIVE (Negative); Urine Micro Reflex YN NO BILL MICROSCOPIC; Urine Nitrite NEGATIVE (Negative); Urine Protein NEGATIVE (Negative); Urine RBC <5 /HPF (None Seen); Urine Urobilinogen Normal (Normal); Urine WBC <5 /HPF (<5); Urine pH 6.5 (5.0-7.0)
[2024-07-22] MEDS ORDERED: INSULIN REGULAR (HUMAN) 100 UNIT/ML ONE ×2 (21:16→22:05)
[2024-07-22 21:17] LABS: PT Prothrombin Time 12.8 SECONDS (9.4-12.5); Protime INR 1.15
[2024-07-22 21:35] LABS: Albumin 2.7 g/dL (3.4-5.0); Albumin/Globulin Ratio 0.7 (1.1-1.8); Anion Gap 12.8 mEq/L (5.0-15.0); Bilirubin Direct 0.6 mg/dL (0-0.2); Bilirubin Indirect, Calculated 0.9 mg/dL (0.2-0.8); Bilirubin Total 1.5 mg/dL (0.2-1.0); Protein, Total 6.7 g/dL (6.4-8.2); Troponin High Sensitivity 6.2 pg/mL (<58.9)
[2024-07-22 21:37] LABS: Magnesium 1.9 mg/dL (1.6-2.4); Potassium 4.8 mEq/L (3.5-5.1)
[2024-07-22 21:44] LABS: Blood Morphology Comment NOT SEEN (NOT SEEN); Platelet Estimate DECR; White Blood Cell Scan OK (OK)
--- NOTE | 2024-07-22 22:14 | RAD REPORT ---
EXAM: CT brain without contrast HISTORY: dizzy COMPARISON: 08/27/2017 TECHNIQUE: Multiple contiguous axial images were obtained and a CT of the brain without contrast. Sag ittal and coronal reformats were performed. One or more of the following dose reduction techniques were used: Automated exposure control, adjust ment of the mA and/or kV according to patient size, and/or iterative reconstruction. FINDINGS: No evidence of hydrocephalus, intracranial hemorrhage, or extra-axial fluid collection. The brain is normal in morphology. No evidence of midline shift or areas of brain edema. The calvarium is intact. The visualized paranasal sinuses and mastoid air cells are essentially clear . IMPRESSION: No evidence of acute intracranial abnormality.
--- NOTE | 2024-07-22 22:17 | RAD REPORT ---
EXAM: CT CHEST, ABDOMEN AND PELVIS WITHOUT CONTRAST CLINICAL INDICATION: ABDOMINAL DISTENTION TECHNIQUE: CT chest, abdomen and pelvis was performed without contrast, as per department protocol. A xial, sagittal and coronal reconstructions were obtained. One or more of the following dose reduction techniques were used: Automated exposure control, adjustment of the mA and/or kV according to patient size, and/or iterative reconstruction. Unless otherwise specified, incidental findings do not require dedicated imaging follow-up. Examination is limited by the lack of intravenous contrast material. COMPARISON: 03/06/2019 FINDINGS: LUNGS: No evidence of airspace or interstitial process. No nodules. PLEURA: No pleural effusion. No pneumothorax. MEDIASTINUM AND LYMPH NODES: No mediastinal mass or fluid collection. Normal size mediastinal, hilar, and axillary lymph nodes. OSSEOUS STRUCTURES AND CHEST WALL: Intact. LIVER: Moderate liver cirrhosis. Cholelithiasis. PANCREAS: No mass, ductal dilation, or jaki-pancreatic fluid. SPLEEN: Normal size. No focal lesion. ADRENALS: Normal; no mass. KIDNEYS: Normal size and contour. No hydronephrosis. URINARY BLADDER: Normal contour. GASTROINTESTINAL TRACT: No bowel obstruction, free air, significant free fluid or abscess. Moderate stool is present throughout the colon. APPENDIX: Normal appendix. LYMPH NODES: No lymphadenopathy. MUSCULOSKELETAL: No acute or suspicious osseous abnormality. OTHER: Small amount of free fluid is seen anterior to the right hepatic edge. Aortoiliac atherosclero sis. IMPRESSION: Moderate liver cirrhosis. Cholelithiasis. Moderate stool in the colon.
[2024-07-23 00:32] LABS: Anion Gap 11.6 mEq/L (5.0-15.0); Potassium 3.6 mEq/L (3.5-5.1)
[2024-07-23] MEDS ORDERED: KCL 20 MEQ/100 mL IVPB 100 ML IV ONE (01:30)
[2024-07-23] MEDS ORDERED: MORPHINE 4 MG/ML SYR ONE (01:30)
--- NOTE | 2024-07-23 02:54 | ER ---
Nurse's Notes [facility] Name: Saba Ahumada Age: 63 yrs Sex: Female : 1960 Arrival Date: 07/22/2024 Time: 20:11 Bed 8 Private MD: Diagnosis: Type 2 diabetes mellitus with hyperglycemia;Type 2 diabetes mellitus with hyperosmolarity;Hyperosmolar hyperglycemic nonketotic state (HHS), moderate to severe dehydration, acute renal insufficiency Presentation: 07/22 20:20 Chief complaint: Patient states: Hyperglycemia and generalized weakness. ay 20:20 Coronavirus screen: Client denies travel out of the [place] in the last 14 days. Ebola ay Screen: Client denies travel out of the [place] in the last 14 days. No symptoms or risks identified at this time. Initial Sepsis Screen: Does the patient meet any 2 criteria? No. Patient's initial sepsis screen is negative. Does the patient have a suspected source of infection? No. Patient's initial sepsis screen is negative. Risk Assessment: Do you want to hurt yourself or someone else? Patient reports no desire to harm self or others. Note Pt WI with a c/o high blood sugar and generalized weakness. Denies SOB and CP. Alert and oriented x4, ambulatory. No distress noted. Onset of symptoms was July 24, 2024. 20:20 Method Of Arrival: Ambulatory ay 20:20 Acuity: NAYLA 3 ay Triage Assessment: 20:20 General: Appears in no apparent distress. uncomfortable, Behavior is calm, cooperative. ay Pain: Denies pain. EENT: No signs and/or symptoms were reported regarding the EENT system. Neuro: Level of Consciousness is awake, alert, obeys commands, Oriented to person, place, time, situation, Rn Team Leader are equal bilaterally Speech is normal. Cardiovascular: Capillary refill < 3 seconds Rhythm is regular. Respiratory: Airway is patent Respiratory effort is even, unlabored, Respiratory pattern is regular, symmetrical. GI: Abdomen is round Bowel sounds present X 4 quads. : No signs and/or symptoms were reported regarding the genitourinary system. Derm: No signs and/or symptoms reported regarding the dermatologic system. Musculoskeletal: Reports generalized weakness. Historical: - Allergies: 21:37 Prednisone; ay - Home Meds: 21:37 alprazolam 0.5 mg Oral Tb24 1 tab once daily [Active]; atorvastatin 80 mg Oral tab 1 ay tab once daily [Active]; Vitamin D2 50 Oral cap 1 cap once wkly [Active]; dulaglutide 0.75 mg/0.5 mL subcutaneous Pen Injector every week [Active]; duloxetine 30 mg oral capsule,delayed release (e.c.) 1 cap daily [Active]; Hydrocortisone 25 mg Rectal every other day [Active]; insulin aspart U-100 100 unit/mL (3 mL) subcutaneous Insulin Pen 15 units 3 times per day [Active]; insulin glargine 100 unit/mL Sub-Q solution 35 units nightly for for 30 days [Active]; levothyroxine 88 mcg tablet 1 tab daily [Active]; - Immunization history:: Adult Immunizations unknown. - Infectious Disease History:: Denies. - Social history:: Smoking status: Patient reports the use of cigarette tobacco products, smokes one pack cigarettes per day. - Family history:: not pertinent. Screenin:20 [facility] ED Fall Risk Assessment (Adult) History of falling in the last 3 months, ay including since admission No falls in past 3 months (0 pts) Confusion or Disorientation No (0 pts) Intoxicated or Sedated No (0 pts) Impaired Gait No (0 pts) Mobility Assist Device Used No (0 pt) Altered Elimination No (0 pt) Score/Fall Risk Level 0 - 2 = Low Risk Oriented to surroundings, Maintained a safe environment, Educated pt \T\ family on fall prevention, incl call for assistance when getting out of bed. Abuse screen: Denies threats or abuse. Denies injuries from another. Nutritional screening: No deficits noted. Tuberculosis screening: No symptoms or risk factors identified. Assessment: 22:37 General: See Triage assessment. ay 22:49 Reassessment: Patient appears in no apparent distress at this time. Patient and/or ay family updated on plan of care and expected duration. Pain level reassessed. 07/23 00:02 Reassessment: Patient appears in no apparent distress at this time. Patient and/or ay family updated on plan of care and expected duration. Pain level reassessed. 02:06 Reassessment: Patient appears in no apparent distress at this time. Patient is alert, ay oriented x 3, equal unlabored respirations, skin warm/dry/pink. 04:09 Reassessment: Patient appears in no apparent distress at this time. No changes from ay previously documented assessment. 05:11 Reassessment: Pt picked up by [facility] to [facility]. ay Vital Signs: 07/22 20:20 BP 137 / 60; Pulse 74; Resp 16; Temp 97.6; Pulse Ox 99% on R/A; ay 22:30 BP 138 / 66; Pulse 65; Resp 16; Pulse Ox 99% on R/A; ay 23:30 BP 146 / 70; Pulse 62; Resp 16 S; Pulse Ox 100% on R/A; ay 07/23 02:07 BP 127 / 55; Pulse 62; Resp 16; Pulse Ox 97% ; ay 03:26 Weight 58.88 kg; bm8 03:30 BP 116 / 98; Pulse 66; Resp 20 S; Pulse Ox 96% on R/A; ay Dennis Coma Score: 07/22 22:37 Eye Response: spontaneous(4). Motor Response: obeys commands(6). Verbal Response: ay oriented(5). Total: 15. 07/23 03:39 Eye Response: spontaneous(4). Motor Response: obeys commands(6). Verbal Response: sp4 oriented(5). Total: 15. ED Course: 07/22 20:11 Patient arrived in ED. jj6 20:20 Inserted saline lock: 22 gauge in right antecubital area, using aseptic technique. ay 20:20 Arm band placed on left wrist. EKG completed in triage. Results shown to MD. ay 20:20 Patient has correct armband on for positive identification. Bed in low position. Call ay light in reach. Side rails up X2. Adult w/ patient. Provided Education on: plan of care. 20:23 Cesario Cortes MD is Attending Physician. sp4 20:33 Dhruv Sheth, RANDALL is Primary Nurse. ay 20:36 XRAY Chest (1 view) In Process Unspecified. EDMS 21:01 Triage completed. ay 21:09 Urinalysis W/Microscopic Sent. ay 21:09 Basic Metabolic Panel Sent. ay 21:10 CBC with Diff Sent. ay 21:10 LFT's Sent. ay 21:10 Magnesium Sent. ay 21:10 NT PRO-BNP Sent. ay 21:10 PT-INR Sent. ay 21:10 Troponin HS Sent. ay 22:04 CT Chest Abdomen Pelvis W/O Contrast In Process Unspecified. EDMS 22:05 CT Head Brain wo Cont In Process Unspecified. EDMS 23:46 BMP Sent. ay 07/23 02:26 No provider procedures requiring assistance completed. ay 02:52 Prince Mcintosh MD is Hospitalizing Provider. sp4 03:32 Transfer initiated \T\ 0332. hw 05:12 Patient transferred, IV remains in place. ay Administered Medications: 07/22 20:54 Drug: NS 0.9% IV 1000 ml IV at 1 bolus Per protocol; to be given as a bolus over 60 ay minutes Route: IV; Rate: 1 bolus; Site: right antecubital; 22:55 Follow up: Response: No adverse reaction; IV Status: Completed infusion; IV Intake: ay 1000ml 21:35 Drug: Insulin Regular Human IVP 10 units IVP once {Co-Signature: bm8 (Adrian Greenwood RN).} Route: IVP; Site: right antecubital; 22:54 Follow up: Response: No adverse reaction ay 22:41 Drug: Insulin Regular Human IVP 10 units IVP once {Co-Signature: bm8 (Adrian Greenwood RN).} Route: IVP; Site: right antecubital; 22:54 Follow up: Response: No adverse reaction ay 22:42 Drug: NS 0.9% IV 1000 ml IV at 125 bolus Per protocol; to be given as a bolus over 60 ay minutes Route: IV; Rate: 125 bolus; Site: right antecubital; 07/23 01:39 Drug: Potassium Chloride IV 20 mEq IV at calculated rate once; administer over 1-2 bm8 hours Route: IV; Rate: calculated rate; Site: right antecubital; 04:07 Follow up: Response: No adverse reaction ay 04:08 Follow up: IV Status: Completed infusion; IV Intake: 100ml ay 01:39 Drug: morphine IVP or IV 4 mg IVP once over 4 mins Route: IVP; Infused Over: 4 mins; bm8 Site: right antecubital; 04:08 Follow up: Response: No adverse reaction ay 04:05 Drug: Insulin Drip - (Insulin Regular Human IVP 100 units, NS 0.9% IV 100 ml) IV at ay calculated rate continuous; Standard concentration 1unit/ml; Dose for DKA is 0.1 units/kg/hr {Co-Signature: bm8 (Adrian Greenwood RN).} Route: IV; Rate: calculated rate; Site: right antecubital; Medication: 07/22 20:20 VIS not applicable for this client. ay Intake: 22:55 IV: 1000ml; Total: 1000ml. ay 07/23 04:08 IV: 100ml; Total: 1100ml. ay Outcome: 02:53 Decision to Hospitalize by Provider. sp4 03:45 ER care complete, transfer ordered by MD. sp4 05:12 Transferred by ground EMS to [facility] 05:12 Condition: stable 05:12 Instructed on the need for transfer, 05:14 Patient left the ED. ay Signatures: Dispatcher [employer] EDMS Joann Marcelo jjCesario Ventura MD MD sp4 Adrian Greenwood, RN RN bm8 Melisa Galarza Awudu RN RN ay Adrian Greenwood RN bm8 Corrections: (The following items were deleted from the chart) 04: 03:14 Insulin Drip - (Insulin Regular Human IVP 100 units, NS 0.9% IV 100 ml) IV at ay calculated rate in right antecubital ay
--- NOTE | 2024-07-23 02:54 | EDPHYS ---
Physician Documentation [facility] Name: Saba Ahumada Age: 63 yrs Sex: Female : 1960 Arrival Date: 07/22/2024 Time: 20:11 Bed 8 Private MD: ED Physician Cesario Cortes HPI: 07/22 20:23 This 63 yrs old Female presents to ER via Unassigned with complaints of High sp4 Blood Sugar, Off Balance-Feels like her body is pulling to the right side, General Weakness. 07/23 03:39 63-year-old female with history of uncontrolled diabetes presents with dizziness, sp4 generalized weakness, and feeling unwell.. 18:08 Patient's medications at home include alprazolam, atorvastatin, dulaglutide, sp4 subcutaneous pain also known as Trulicity injection 0.5 mL once a week. Duloxetine also known as Cymbalta, ergocalciferol, hydrocortisone 25 mg suppository, insulin aspart or NovoLog 15 units 3 times a day, insulin glargine at 35 units daily, levothyroxine 88 mcg daily, magnesium 200 mg daily, omega-3 acids also known as Lovaza, Protonix 40 mg daily, ultrafine original pen needle, polyethylene glycol as needed, propranolol 20 mg daily, rifaximin 550 mg daily, Senokot S, sucralfate 4 times a day, thiamine 200 mg daily, tramadol 50 mg as needed. . Patient's past medical history includes abnormal mammogram, history of hepatic encephalopathy, joint disorder, kidney stone, chronic use of opiate, liver cirrhosis, diabetes type 2, degenerative disc disease of lumbar spine, varicose veins of esophagus, fibromyositis, hypercholesterolemia, hypertension, hypothyroidism, uncontrolled diabetes, peripheral neuropathy, depressive disorder, spinal stenosis, fatty liver, thrombocytopenia, transient ischemic attack. Historical: - Allergies: 07/22 21:37 Prednisone; ay - Home Meds: 21:37 alprazolam 0.5 mg Oral Tb24 1 tab once daily [Active]; atorvastatin 80 mg Oral tab 1 ay tab once daily [Active]; Vitamin D2 50 Oral cap 1 cap once wkly [Active]; dulaglutide 0.75 mg/0.5 mL subcutaneous Pen Injector every week [Active]; duloxetine 30 mg oral capsule,delayed release (e.c.) 1 cap daily [Active]; Hydrocortisone 25 mg Rectal every other day [Active]; insulin aspart U-100 100 unit/mL (3 mL) subcutaneous Insulin Pen 15 units 3 times per day [Active]; insulin glargine 100 unit/mL Sub-Q solution 35 units nightly for for 30 days [Active]; levothyroxine 88 mcg tablet 1 tab daily [Active]; - Immunization history:: Adult Immunizations unknown. - Infectious Disease History:: Denies. - Social history:: Smoking status: Patient reports the use of cigarette tobacco products, smokes one pack cigarettes per day. - Family history:: not pertinent. ROS: 07/23 03:39 Constitutional: Negative for fever, chills, and weight loss, positive generalized sp4 weakness All other systems are negative, Exam: 03:39 Constitutional: This is a well developed, well nourished patient who is awake, alert, sp4 and in no acute distress. Head/Face: Normocephalic, atraumatic. Eyes: Pupils equal round and reactive to light, extra-ocular motions intact. Lids and lashes normal. Conjunctiva and sclera are not injected. Cornea within normal limits. Periorbital areas with no swelling, redness, or edema. ENT: Nares patent. No nasal discharge, no septal abnormalities noted. Tympanic membranes are normal and external auditory canals are clear. Oropharynx with no redness, swelling, or masses, exudates, or evidence of obstruction, uvula midline. Mucous membranes moist. Neck: Trachea midline, no thyromegaly or masses palpated, and no cervical lymphadenopathy. Supple, full range of motion without nuchal rigidity, or vertebral point tenderness. Chest/axilla: Normal chest wall appearance and motion. Nontender with no deformity. No lesions are appreciated. Cardiovascular: Regular rate and rhythm with a normal S1 and S2. No gallops, murmurs, or rubs. Normal PMI, no JVD. No pulse deficits. Respiratory: Lungs have equal breath sounds bilaterally, clear to auscultation and percussion. No rales, rhonchi or wheezes noted. No increased work of breathing, no retractions or nasal flaring. Abdomen/GI: Soft, with normal bowel sounds. No distension or tympany. No guarding or rebound. No evidence of tenderness throughout. Back: No spinal tenderness. No costovertebral tenderness. Skin: Warm, dry with normal turgor. Normal color with no rashes, no lesions, and no evidence of cellulitis. MS/ Extremity: Pulses equal, no cyanosis. Neurovascular intact. Full, normal range of motion. Neuro: Awake and alert, GCS 15, oriented to person, place, time, and situation. Cranial nerves II-XII grossly intact. Motor strength 5/5 in all extremities. Sensory grossly intact. Psych: Awake, alert, with orientation to person, place and time. Behavior, mood, and affect are within normal limits 03:39 ECG was reviewed by the Attending Physician. EKG at 2130 sp4 Vital Signs: 07/22 20:20 BP 137 / 60; Pulse 74; Resp 16; Temp 97.6; Pulse Ox 99% on R/A; ay 22:30 BP 138 / 66; Pulse 65; Resp 16; Pulse Ox 99% on R/A; ay 23:30 BP 146 / 70; Pulse 62; Resp 16 S; Pulse Ox 100% on R/A; ay 07/23 02:07 BP 127 / 55; Pulse 62; Resp 16; Pulse Ox 97% ; ay 03:26 Weight 58.88 kg; bm8 03:30 BP 116 / 98; Pulse 66; Resp 20 S; Pulse Ox 96% on R/A; ay [place] Coma Score: 07/22 22:37 Eye Response: spontaneous(4). Motor Response: obeys commands(6). Verbal Response: ay oriented(5). Total: 15. 07/23 03:39 Eye Response: spontaneous(4). Motor Response: obeys commands(6). Verbal Response: sp4 oriented(5). Total: 15. MDM: 07/22 20:24 Medical Screening Exam initiated sp4 07/23 03:39 Differential diagnosis: Arcata's syndrome, diabetes insipidus, DKA, gestational sp4 diabetes, hyperglycemia, hyperthyroidism. Data reviewed: vital signs, nurses notes, old medical records, lab test result(s), EKG, radiologic studies, CT scan. ED course: EXAM: CT CHEST, ABDOMEN AND PELVIS WITHOUT CONTRAST CLINICAL INDICATION: ABDOMINAL DISTENTION TECHNIQUE: CT chest, abdomen and pelvis was performed without contrast, as per department protocol. Axial, sagittal and coronal reconstructions were obtained. One or more of the following dose reduction techniques were used: Automated exposure control, adjustment of the mA and/or kV according to patient size, and/or iterative reconstruction. Unless otherwise specified, incidental findings do not require dedicated imaging follow-up. Examination is limited by the lack of intravenous contrast material. COMPARISON: 03/06/2019 FINDINGS: LUNGS: No evidence of airspace or interstitial process. No nodules. PLEURA: No pleural effusion. No pneumothorax. MEDIASTINUM AND LYMPH NODES: No mediastinal mass or fluid collection. Normal size mediastinal, hilar, and axillary lymph nodes. OSSEOUS STRUCTURES AND CHEST WALL: Intact. LIVER: Moderate liver cirrhosis. Cholelithiasis. PANCREAS: No mass, ductal dilation, or jaki-pancreatic fluid. SPLEEN: Normal size. No focal lesion. ADRENALS: Normal; no mass. KIDNEYS: Normal size and contour. No hydronephrosis. URINARYBLADDER: Normal contour. GASTROINTESTINAL TRACT: No bowel obstruction, free air, significant free fluid or abscess. Moderate stool is present throughout the colon. APPENDIX: Normal appendix. LYMPH NODES: No lymphadenopathy. MUSCULOSKELETAL: No acute or suspicious osseous abnormality. OTHER: Small amount of free fluid is seen anterior to the right hepatic edge. Aortoiliac atherosclerosis. IMPRESSION: Moderate liver cirrhosis. Cholelithiasis. Moderate stool in the colon. . ED course: EXAM: CT brain without contrast HISTORY: dizzy COMPARISON: 08/27/2017 TECHNIQUE: Multiple contiguous axial images were obtained and a CT of the brain without contrast. Sagittal and coronal reformats were performed. One or more of the following dose reduction techniques were used: Automated exposure control, adjustment of the mA and/or kV according to patient size, and/or iterative reconstruction. FINDINGS: No evidence of hydrocephalus, intracranial hemorrhage, or extra-axial fluid collection. The brain is normal in morphology. No evidence of midline shift or areas of brain edema. The calvarium is intact. The visualized paranasal sinuses and mastoid air cells are essentially clear. IMPRESSION: No evidence of acute intracranial abnormality. . 07/22 20:23 Order name: Basic Metabolic Panel; Complete Time: 21:40 sp4 07/22 20:23 Order name: CBC with Diff; Complete Time: 00:44 sp4 07/22 20:23 Order name: LFT's; Complete Time: 21:40 sp4 07/22 20:23 Order name: Magnesium; Complete Time: 21:40 sp4 07/22 20:23 Order name: NT PRO-BNP; Complete Time: 21:40 sp4 07/22 20:23 Order name: PT-INR; Complete Time: 21:40 sp4 07/22 20:23 Order name: Troponin HS; Complete Time: 21:40 sp4 07/22 20:37 Order name: Glucose, Ancillary Testing; Complete Time: 20:42 EDMS 07/22 20:44 Order name: Urinalysis W/Microscopic; Complete Time: 21:40 sp4 07/22 21:20 Order name: CBC Smear Scan; Complete Time: 00:44 EDMS 07/22 21:41 Order name: Lactate w/ 2H reflex if indic.; Complete Time: 00:44 sp4 07/22 21:41 Order name: BHB; Complete Time: 00:44 sp4 07/22 22:25 Order name: Ghost Lactate-NO COLLECT Timer; Complete Time: 00:44 EDMS 07/22 22:36 Order name: Glucose, Ancillary Testing; Complete Time: 00:44 EDMS 07/22 23:29 Order name: BMP; Complete Time: 00:44 sp4 07/23 03:49 Order name: Lactate Sepsis 2 HR Follow-up; Complete Time: 03:53 EDMS 07/23 04:13 Order name: Glucose, Ancillary Testing; Complete Time: 04:32 EDMS 07/23 04:14 Order name: Glucose, Ancillary Testing EDMS 07/22 20:23 Order name: XRAY Chest (1 view); Complete Time: 20:42 sp4 07/22 21:41 Order name: CT Chest Abdomen Pelvis W/O Contrast; Complete Time: 00:44 sp4 07/22 21:41 Order name: CT Head Brain wo Cont; Complete Time: 00:44 sp4 07/22 20:23 Order name: Cardiac monitoring; Complete Time: 21:36 sp4 07/22 20:23 Order name: EKG - Nurse/Tech; Complete Time: 21:36 sp4 07/22 20:23 Order name: IV Saline Lock; Complete Time: 21:09 sp4 07/22 20:23 Order name: Labs collected and sent; Complete Time: 21:09 sp4 07/22 20:23 Order name: O2 Per Protocol; Complete Time: 21: sp4 07/22 20:23 Order name: O2 Sat Monitoring; Complete Time: : sp4 EC/04 21:30 Rate is 71 beats/min. Rhythm is regular, Normal Sinus Rhythm. QRS [place] is Normal. ME sp4 interval is normal. QRS interval is normal. QT interval is normal. No Q waves. T waves are Normal. No ST changes noted. Clinical impression: No evidence of ischemia. Interpreted by me. Reviewed by me. Administered Medications: 20:54 Drug: NS 0.9% IV 1000 ml IV at 1 bolus Per protocol; to be given as a bolus over 60 ay minutes Route: IV; Rate: 1 bolus; Site: right antecubital; 22:55 Follow up: Response: No adverse reaction; IV Status: Completed infusion; IV Intake: ay 1000ml 21:35 Drug: Insulin Regular Human IVP 10 units IVP once {Co-Signature: bm8 (Adrian Greenwood RN).} Route: IVP; Site: right antecubital; 22:54 Follow up: Response: No adverse reaction ay 22:41 Drug: Insulin Regular Human IVP 10 units IVP once {Co-Signature: bm8 (Adrian Greenwood RN).} Route: IVP; Site: right antecubital; 22:54 Follow up: Response: No adverse reaction ay 22:42 Drug: NS 0.9% IV 1000 ml IV at 125 bolus Per protocol; to be given as a bolus over 60 ay minutes Route: IV; Rate: 125 bolus; Site: right antecubital; 07/23 01:39 Drug: Potassium Chloride IV 20 mEq IV at calculated rate once; administer over 1-2 bm8 hours Route: IV; Rate: calculated rate; Site: right antecubital; 04:07 Follow up: Response: No adverse reaction ay 04:08 Follow up: IV Status: Completed infusion; IV Intake: 100ml ay 01:39 Drug: morphine IVP or IV 4 mg IVP once over 4 mins Route: IVP; Infused Over: 4 mins; bm8 Site: right antecubital; 04:08 Follow up: Response: No adverse reaction ay 04:05 Drug: Insulin Drip - (Insulin Regular Human IVP 100 units, NS 0.9% IV 100 ml) IV at ay calculated rate continuous; Standard concentration 1unit/ml; Dose for DKA is 0.1 units/kg/hr {Co-Signature: bm8 (Adrian Greenwood RN).} Route: IV; Rate: calculated rate; Site: right antecubital; Disposition Summary: 07/23/24 03:45 Transfer Ordered Notes: Transfer Location: [facility] sp4 Reason: Higher level of care sp4 Condition: Stable(07/23/24 03:45) sp4 Problem: new(07/23/24 03:45) sp4 Symptoms: have improved(07/23/24 03:45) sp4 Accepting Physician: [facility]' ICU attending (07/23/24 05:14) ay Diagnosis - Type 2 diabetes mellitus with hyperglycemia(07/23/24 03:45) sp4 - Type 2 diabetes mellitus with hyperosmolarity(07/23/24 03:45) sp4 - Hyperosmolar hyperglycemic nonketotic state (HHS), moderate to severe dehydration, sp4 acute renal insufficiency Forms: - Medication Reconciliation Form sp4 - SBAR form sp4 Critical care time excluding procedures: 02:53 Critical care time: Bedside Care: 36 minutes, Consultation: 12 minutes, Family sp4 Intervention: 12 minutes. Total time: 60 minutes Signatures: Dispatcher [employer] EDCesario Cortes MD MD sp4 Adrian Greenwood, RN RN bm8 Dhruv Sheth RN RN ay Adrian Greenwood RN bm8 Corrections: (The following items were deleted from the chart) 07/22 20:24 20:24 BASIC METABOLIC PANEL+C.LAB.BRZ ordered. EDMS EDMS 20:24 20:24 CBC+H.LAB.BRZ ordered. EDMS EDMS 20:24 20:24 HEPATIC FUNCTION+C.LAB.BRZ ordered. EDMS EDMS 20:24 20:24 MAGNESIUM+C.LAB.BRZ ordered. EDMS EDMS 20:24 20:24 PROBNP+C.LAB.BRZ ordered. EDMS EDMS 20:24 20:24 PROTIME (+INR)+COAG.LAB.BRZ ordered. EDMS EDMS 20:24 20:24 Troponin High Sensitivity+C.LAB.BRZ ordered. EDMS EDMS 20:24 20:24 Chest Single View+RAD.RAD.BRZ ordered. EDMS EDMS 21:41 21:41 LACTATE+C.LAB.BRZ ordered. EDMS EDMS 21:41 21:41 BETA HYDROXYBUTYRATE+C.LAB.BRZ ordered. EDMS EDMS 21:56 20:45 Head Brain Wo Cont+CT.RAD.BRZ ordered. EDMS EDMS 23:29 23:29 BASIC METABOLIC PANEL+C.LAB.BRZ ordered. EDMS EDMS 07/23 03:44 02:53 Inpatient Admission sp4 sp4 03:44 02:53 Calliezobeckybryan Jacques sp4 sp4 03:44 02:53 Intensive Care Unit sp4 sp4 03:44 02:53 Serious sp4 sp4 03:44 02:53 new sp4 sp4 03:44 02:53 have improved sp4 sp4 03:44 02:53 Standard sp4 sp4 03:44 02:53 sp4 sp4 03:44 02:53 Type 2 diabetes mellitus with hyperglycemia sp4 sp4 03:44 02:53 Type 2 diabetes mellitus with hyperosmolarity sp4 sp4 03:44 02:53 Hyperglycemic hyperosmolar nonketotic state, moderate dehydration, noncompliance sp4 with diabetic treatment sp4 05:14 03:45 [facility] ICU attending sp4 ay
[2024-07-23] MEDS ORDERED: INSULIN REGULAR (HUMAN) 100 UNIT/ML ONE (03:07)
[2024-07-23] MEDS ORDERED: NA CHLORIDE 0.9% 100 ML ONE (03:08)
[2024-07-23] MEDS ORDERED: NA CHLORIDE 0.9% 1,000 ML ONE (05:11)
[2024-07-23 05:19] VITALS: TEMP 97.6
[2024-07-23 05:25] VITALS: BP 116/98; O2SAT 96
--- NOTE | 2024-07-31 11:15 | EKG ---
Test Date: 2024-07-22 Test Time: 21:30:00 Tin Whiz Machine Operator: NELSON MEASUREMENT RESULTS: Intervals: Rate: 71 ND: 172 QRSD: 86 QT: 478 QTc: 519 [place]: P: 57 ND: 172 QRS: 53 T: 54 INTERPRETIVE STATEMENTS: Normal sinus rhythm Prolonged QT Abnormal ECG Compared to ECG 03/06/2019 18:27:45 Prolonged QT interval now present Sinus arrhythmia no longer present Electronically Signed On 07-31-24 11:02:32 PLUG WIRER by Clint Narayanan
== END 2024-07-23 05:14 | disposition short-term general hospital (02) ==
LOC: ER 20:11
DX: E11.65 Type 2 diabetes mellitus with hyperglycemia (principal); E11.00 Type 2 diabetes mellitus with hyperosmolarity without nonketotic hyperglycemic-hyperosmolar coma (NKHHC); E86.0 Dehydration; N28.9 Disorder of kidney and ureter, unspecified; Z79.4 Long term (current) use of insulin; F17.210 Nicotine dependence, cigarettes, uncomplicated
CPT/HCPCS: 96365; 96361; 93005; 85025; 81001; 80048 ×2; 36415; 83735; 85610; 82947 ×4; 80076; 83605 ×2; 84484; 82010; 83880; 70450; 71250; 74176; 71045; 96375; 99285; 96366; J3480; J7030 ×3

== ENCOUNTER 2025-03-06 12:00 | Emergency (ER) | payer OTHER ==
[2025-03-06] MEDS ORDERED: HYDROCODONE/APAP 5/325 MG TAB ONE ×2 (12:09→12:11)
--- NOTE | 2025-03-06 13:25 | RAD REPORT ---
EXAMINATION: XR LEFT ELBOW CLINICAL INDICATION: Female, 64 years old. trauma;Pain TECHNIQUE: Multiple views of the left elbow were obtained. COMPARISON: No prior exam. FINDINGS: Olecranon fracture is seen with minimal displacement. Moderate soft tissue swelling is present.
[2025-03-06] MEDS ORDERED: HYDROMORPHONE HCL 1 MG/ML INJ ONE (13:29)
--- NOTE | 2025-03-06 13:32 | ER ---
Nurse's Notes [facility] Name: Saba Ahumada Age: 64 yrs Sex: Female : 1960 Arrival Date: 03/06/2025 Time: 12:00 Bed 17 Private MD: Diagnosis: Left olecranon proximal fracture with minimal displacement, mechanical fall Presentation: 03/06 12:07 Chief complaint: EMS states: tripped in the garden, falling onto left side. c/o pain to me1 left arm, left hip, R calf. LUE is splinted by EMS, abrasion noted to right calf. Pain 10/10. Coronavirus screen: Vaccine status: Patient reports receiving the 2nd dose of the covid vaccine. Ebola Screen: No symptoms or risks identified at this time. Initial Sepsis Screen: Does the patient meet any 2 criteria? No. Patient's initial sepsis screen is negative. Does the patient have a suspected source of infection? No. Patient's initial sepsis screen is negative. Risk Assessment: Do you want to hurt yourself or someone else? Patient reports no desire to harm self or others. Onset of symptoms was March 06, 2025 at 11:20. 12:07 Method Of Arrival: EMS: [facility] me1 12:07 Acuity: NAYLA 4 me1 Triage Assessment: 12:10 General: Appears uncomfortable, Behavior is cooperative, appropriate for age, crying. me1 Pain: Complains of pain in left hip and left arm and right calf Pain does not radiate. Pain currently is 10 out of 10 on a pain scale. Quality of pain is described as aching, Pain began suddenly, Is continuous. EENT: No signs and/or symptoms were reported regarding the EENT system. Neuro: Level of Consciousness is awake, alert, obeys commands, Oriented to person, place, time, situation, Appropriate for age. Cardiovascular: Patient's skin is warm and dry. Respiratory: Airway is patent Respiratory effort is even, unlabored, Respiratory pattern is regular, symmetrical. GI: No signs and/or symptoms were reported involving the gastrointestinal system. : No signs and/or symptoms were reported regarding the genitourinary system. Derm: Wound noted right calf Wound is abrasion. Musculoskeletal: Reports pain in left hip and left arm and right calf. Injury Description: trip and fall. Historical: - Allergies: 12:10 Prednisone; me1 - PMHx: 12:10 Anxiety; Cirrhosis; Diabetes - IDDM; Fibromyalgia; Hypertension; Hypothyroidism; me1 - PSHx: 12:10 Total abdominal hysterectomy; me1 - Immunization history:: Adult Immunizations up to date. - Infectious Disease History:: Denies. - Social history:: Smoking status: Patient reports the use of cigarette tobacco products, smokes one pack cigarettes per day. Screenin:13 [facility] ED Fall Risk Assessment (Adult) History of falling in the last 3 months, me1 including since admission No falls in past 3 months (0 pts) Confusion or Disorientation No (0 pts) Intoxicated or Sedated No (0 pts) Impaired Gait No (0 pts) Mobility Assist Device Used No (0 pt) Altered Elimination No (0 pt) Score/Fall Risk Level 0 - 2 = Low Risk Maintained a safe environment, Provided non-skid footwear, Hourly rounding (assess needs \T\ fall precautionary measures) done. Abuse screen: Denies threats or abuse. Nutritional screening: No deficits noted. Tuberculosis screening: No symptoms or risk factors identified. Assessment: 12:13 General: See triage assessment. me1 Vital Signs: 12:07 BP 118 / 55; Pulse 63; Resp 17; Temp 97.9; Pulse Ox 100% ; Weight 65.77 kg; Height 5 me1 ft. 5 in. ; Pain 10/10; 13:00 BP 129 / 61; Pulse 66; Resp 16; Pulse Ox 100% ; me1 13:45 BP 117 / 65; Pulse 58; Resp 16; Temp 98.4; Pulse Ox 100% ; me1 12:07 Body Mass Index 24.13 (65.77 kg, 165.1 cm) me1 12:07 Pain Scale: Adult me1 ED Course: 12:02 Patient arrived in ED. sp3 12:02 Won Lund MD is Attending Physician. sp3 12:03 Cheryl Lackey, RANDALL is Primary Nurse. me1 12:10 Triage completed. me1 12:10 Arm band placed on Patient placed in an exam room. me1 12:13 Patient has correct armband on for positive identification. Bed in low position. Call me1 light in reach. Side rails up X2. Provided Education on: POC. Verbalized understanding.. Client placed on continuous cardiac and pulse oximetry monitoring. NIBP monitoring applied. Pulse ox on. NIBP on. 12:13 No provider procedures requiring assistance completed. me1 12:34 Elbow Left 3 View XRAY In Process Unspecified. EDMS 13:32 Devonte Vargas MD is Referral Physician. sp3 14:04 Patient did not have IV access during this emergency room visit. me1 Administered Medications: 12:22 Drug: Gates PO 5 mg-325 mg 2 tabs PO once Route: PO; me1 13:32 Follow up: Response: No adverse reaction; Pain is decreased me1 13:32 Drug: HYDROmorphone IM 1 mg IM once Route: IM; Site: right deltoid; me1 14:06 Follow up: Response: No adverse reaction; Pain is decreased me1 Medication: 12:13 VIS not applicable for this client. me1 Outcome: 13:32 Discharge ordered by . sp3 14:04 Discharged to home via wheelchair, with significant other, me1 14:04 Condition: stable 14:04 Discharge instructions given to patient, significant other, Instructed on discharge instructions, follow up and referral plans. medication usage, Demonstrated understanding of instructions, follow-up care, medications, Prescriptions given X 1, 14:05 Patient left the ED. me1 Signatures: Dispatcher [employer] EDMS Won Lund MD MD sp3 Cheryl Lackey, RN RN me1
--- NOTE | 2025-03-06 13:32 | EDPHYS ---
Physician Documentation [facility] Name: Saba Ahumada Age: 64 yrs Sex: Female : 1960 Arrival Date: 03/06/2025 Time: 12:00 Bed 17 Private MD: ED Physician Won Lund HPI: 03/06 12:26 This 64 yrs old Female presents to ER via EMS with complaints of Fall Injury. sp3 12:26 64-year-old female with history of diabetes, fibromyalgia, hypertension presents with sp3 mechanical fall ground-level with injury to the left elbow. EMS states patient was walking on scene with no other injuries and normal vital signs.. Historical: - Allergies: 12:10 Prednisone; me1 - PMHx: 12:10 Anxiety; Cirrhosis; Diabetes - IDDM; Fibromyalgia; Hypertension; Hypothyroidism; me1 - PSHx: 12:10 Total abdominal hysterectomy; me1 - Immunization history:: Adult Immunizations up to date. - Infectious Disease History:: Denies. - Social history:: Smoking status: Patient reports the use of cigarette tobacco products, smokes one pack cigarettes per day. ROS: 12:27 Constitutional: Negative for fever, chills, and weight loss, Eyes: Negative for injury, sp3 pain, redness, and discharge, ENT: Negative for injury, pain, and discharge, Neck: Negative for injury, pain, and swelling, Cardiovascular: Negative for chest pain, palpitations, and edema, Respiratory: Negative for shortness of breath, cough, wheezing, and pleuritic chest pain, Abdomen/GI: Negative for abdominal pain, nausea, vomiting, diarrhea, and constipation, Back: Negative for injury and pain, Skin: Negative for injury, rash, and discoloration, Neuro: Negative for headache, weakness, numbness, tingling, and seizure, Psych: Negative for depression, anxiety, suicide ideation, homicidal ideation, and hallucinations, Allergy/Immunology: Negative for hives, rash, and allergies, Endocrine: Negative for neck swelling, polydipsia, polyuria, polyphagia, and marked weight changes, 12:27 All other systems are negative, Exam: 12:27 Constitutional: This is a well developed, well nourished patient who is awake, alert, sp3 and in no acute distress. Head/Face: Normocephalic, atraumatic. Eyes: Pupils equal round and reactive to light, extra-ocular motions intact. Lids and lashes normal. Conjunctiva and sclera are non-icteric and not injected. Cornea within normal limits. Periorbital areas with no swelling, redness, or edema. Neck: Trachea midline, no thyromegaly or masses palpated, and no cervical lymphadenopathy. Supple, full range of motion without nuchal rigidity, or vertebral point tenderness. No Meningismus. Chest/axilla: Normal chest wall appearance and motion. Nontender with no deformity. No lesions are appreciated. Cardiovascular: Regular rate and rhythm with a normal S1 and S2. No gallops, murmurs, or rubs. Normal PMI, no JVD. No pulse deficits. Respiratory: Lungs have equal breath sounds bilaterally, clear to auscultation and percussion. No rales, rhonchi or wheezes noted. No increased work of breathing, no retractions or nasal flaring. Abdomen/GI: Soft, non-tender, with normal bowel sounds. No distension or tympany. No guarding or rebound. No evidence of tenderness throughout. Back: No spinal tenderness. No costovertebral tenderness. Full range of motion. Skin: Warm, dry with normal turgor. Normal color with no rashes, no lesions, and no evidence of cellulitis. Neuro: Awake and alert, GCS 15, oriented to person, place, time, and situation. Cranial nerves II-XII grossly intact. Motor strength 5/5 in all extremities. Sensory grossly intact. Cerebellar exam normal. Normal gait. Psych: Awake, alert, with orientation to person, place and time. Behavior, mood, and affect are within normal limits. 12:27 Musculoskeletal/extremity: No obvious deformity noted. Pain to the lateral side of the elbow.. Vital Signs: 12:07 BP 118 / 55; Pulse 63; Resp 17; Temp 97.9; Pulse Ox 100% ; Weight 65.77 kg; Height 5 me1 ft. 5 in. ; Pain 10/10; 13:00 BP 129 / 61; Pulse 66; Resp 16; Pulse Ox 100% ; me1 13:45 BP 117 / 65; Pulse 58; Resp 16; Temp 98.4; Pulse Ox 100% ; me1 12:07 Body Mass Index 24.13 (65.77 kg, 165.1 cm) me1 12:07 Pain Scale: Adult me1 MDM: 12:02 Medical Screening Exam initiated sp3 12:28 Data reviewed: vital signs, nurses notes, old medical records, radiologic studies. ED sp3 course: 64-year-old female with PMH above with mechanical fall injuring her left elbow. Differential diagnosis includes elbow contusion versus sprain versus fracture. Clinically I am not highly suspicious of any other injury on any other part of her body. There is no medical prodrome prior to the event. Will obtain x-ray and pain control with p.o. meds. Disposition probable discharge if x-ray negative.. 13:29 ED course: Olecranon fracture with minimal displacement noted. Soft tissue swelling sp3 also noted. We will place a proper splint, have patient follow-up with orthopedics and give additional Dilaudid IM for pain control. Patient was placed in a sling.. 03/06 12:05 Order name: Elbow Left 3 View XRAY; Complete Time: 13:29 sp3 03/06 13:24 Order name: Splint - Elbow - Posterior; Complete Time: 13:45 sp3 03/06 13:24 Order name: Sling; Complete Time: 13:45 sp3 Administered Medications: 12:22 Drug: [place] PO 5 mg-325 mg 2 tabs PO once Route: PO; me1 13:32 Follow up: Response: No adverse reaction; Pain is decreased me1 13:32 Drug: HYDROmorphone IM 1 mg IM once Route: IM; Site: right deltoid; me1 14:06 Follow up: Response: No adverse reaction; Pain is decreased me1 Disposition Summary: 03/06/25 13:32 Discharge Ordered Notes: Location: Home sp3 Condition: Stable sp3 Diagnosis - Left olecranon proximal fracture with minimal displacement, mechanical fall sp3 Followup: sp3 - With: Devonte Vargas MD - When: Upon discharge from the Emergency Department - Reason: Recheck today's complaints Discharge Instructions: - Discharge Summary Sheet sp3 - Olecranon Fracture sp3 Forms: - Medication Reconciliation Form sp3 - Antibiotic Education sp3 - Prescription Opioid Use sp3 - Patient Portal Instructions sp3 - Leadership Thank You Letter sp3 Prescriptions: - Tramadol 50 mg Oral Tablet - take 1 tablet ORAL route every 8 hours as needed; 12 tablet; Refills: 0, sp3 Product Selection Permitted Signatures: Dispatcher [employer] Won De Paz MD MD sp3 Cheryl Lackey RN RN me1
[2025-03-06 18:17] VITALS: O2SAT 100
[2025-03-06 18:20] VITALS: BP 117/65; TEMP 98.4
== END 2025-03-06 14:05 | disposition home or self-care (01) ==
LOC: ER 12:00
PROC: 2W39X1Z Immobilization of Left Upper Extremity using Splint (ICD-10-PCS; principal; 2025-03-06)
DX: S52.022A Displaced fracture of olecranon process without intraarticular extension of left ulna, initial encounter for closed fracture (principal); W18.30XA Fall on same level, unspecified, initial encounter
CPT/HCPCS: 73080; 96372; 99284; 29105; J1171

== ENCOUNTER 2025-04-06 00:19 | Inpatient (IN) | payer OTHER ==
[2025-04-06 01:36] LABS: PT Prothrombin Time 14.4 SECONDS (10-13.0); Protime INR 1.28
[2025-04-06 01:39] LABS: Absolute Lymphocytes (CBC) 2.2 K/uL (0.7-4.9); Hematocrit 34.0 % (36.0-45.0); Hemoglobin 11.9 g/dL (12.0-15.0); MCH 33.2 pg (27.0-35.0); MCHC 34.9 g/dL (32.0-36.0); MCV 95.0 fL (80-100); MPV 10.0 fL (7.6-11.3); Nucleated RBC Absolute Count 0.0 (0-0); Nucleated Red Blood Cells % 0.1 % (0-0); RBC Red Blood Cell Count 3.58 M/uL (3.86-4.86); White Blood Count 8.20 thou/uL (4.3-10.9)
[2025-04-06 01:53] LABS: ALT/SGPT 38.0 U/L (13-56); AST/SGOT 32.0 U/L (15-37); Albumin 2.7 g/dL (3.4-5.0); Albumin/Globulin Ratio 0.8 (1.1-1.8); Alkaline Phosphatase 354.0 U/L (45-117); Anion Gap 11.3 mEq/L (5.0-15.0); BUN Blood Urea Nitrogen 21.0 mg/dL (7-18); Bilirubin Indirect, Calculated 0.8 mg/dL (0.2-0.8); Globulin 3.2 g/dL (2.3-3.5); Glucose Level 308.0 mg/dL (74-106); Magnesium 1.6 mg/dL (1.6-2.4); NT PRO-BNP 79.0 pg/mL (<125); Potassium 4.3 mEq/L (3.5-5.1); Troponin High Sensitivity 3.4 pg/mL (<58.9)
--- NOTE | 2025-04-06 03:47 | RAD REPORT ---
EXAM: CT Chest, Abdomen and Pelvis Without Intravenous Contrast CLINICAL HISTORY: The patient is 64 years old and is Female; Fall. TECHNIQUE: Axial computed tomography images of the chest, abdomen and pelvis without intravenous contrast. S agittal and coronal reformatted images were created and reviewed. This CT exam was performed using one or more of the following dose reduction techniques: automated exposure control, adjustmen t of the mA and/or kV according to patient size, and/or use of iterative reconstruction technique. COMPARISON: XR Chest 07/23/2024 (report only), CT Chest Abdomen Pelvis 07/23/2024 (report only). FINDINGS: ARTIFACTS: Some images are degraded by patient motion artifact. LIMITATIONS: Exam is limited due to absence of intravenous contrast. CHEST: LUNGS AND PLEURAL SPACES: Mild areas of dependent and subsegmental atelectasis in each lung most notable towards the bases. No mass. No significant effusion. No pneumothorax. HEART: Moderate coronary artery calcification and/or stent material. No cardiomegaly. No sign ificant pericardial effusion. ABDOMEN: LIVER: Diffuse nodular contour of the liver consistent with cirrhosis. Tiny low-attenuation focus in the anterior hepatic dome is too small for definitive characterization but favored to represent a tiny cyst. This however could be followed to ensure stability. GALLBLADDER AND BILE DUCTS: Cholelithiasis. No ductal dilation. PANCREAS: Unremarkable. No ductal dilation. SPLEEN: Unremarkable. No splenomegaly. ADRENALS: Unremarkable. No mass. KIDNEYS AND URETERS: Low-attenuation mid right renal lesion in mid left renal lesion. These are c onsistent with small cysts. This requires no specific additional follow-up. No obstructing stones. No hydronephrosis. STOMACH AND BOWEL: Assessment of bowel is somewhat limited by absence of oral contrast. Thicken ing of gastric folds likely due to underdistention. Cecum is mobile. Moderate-large diffuse colonic stool burden. Localized area of luminal narrowing and thickening of the ascending colon. PELVIS: APPENDIX: No findings to suggest acute appendicitis. BLADDER: Unremarkable. No stones. REPRODUCTIVE: Uterus is absent. CHEST, ABDOMEN and PELVIS: INTRAPERITONEAL SPACE: Unremarkable. No significant fluid collection. No free air. BONES/JOINTS: Transversely oriented comminuted fracture deformity of the proximal right humerus a t the surgical neck. This fracture is minimally displaced. Moderate degenerative changes in the shoulders, spine and pelvis. Impacted fracture deformity of the distal left radius somewhat age ind eterminate but possibly acute or subacute. Minimal sclerosis of the inferior left sacrum suggestive of old fracture. SOFT TISSUES: Moderate ill-defined soft tissue edema about the right shoulder and proximal upper arm. Minimal subcutaneous fat stranding in the bilateral anterior abdominal wall. VASCULATURE: See above. LYMPH NODES: Unremarkable. No enlarged lymph nodes. IMPRESSION: 1. Mild areas of dependent and subsegmental atelectasis in each lung most notable towards the bases . 2. Cholelithiasis. 3. Moderate-large diffuse colonic stool burden. 4. Localized area of luminal narrowing and thickening of the ascending colon. This may be related t o underdistention. A neoplastic process is not excluded. Correlation with colonoscopy or short-term follow-up is recommended. 5. Impacted fracture deformity of the distal left radius somewhat age indeterminate but possibly ac winter or subacute. 6. Fracture deformity of the proximal right humerus. 7. Minimal subcutaneous fat stranding in the bilateral anterior abdominal wall. This may be related to injection sites or due to ill-defined contusions. 8. Other chronic appearing findings. Recommend short-term follow-up if symptoms persist. Electronically signed by: Wilfred Sheehan MD 04/06/2025 03:23 AM CDT Due to temporary technical issues with the PACS/[employer] reporting system, reports are being felipe d by the in-house radiologist without review as a courtesy to ensure prompt reporting the interpreting radiologist is fully responsible for the content of the report. Transcribed Date/Time: 04/06/2025 3:47 AM
--- NOTE | 2025-04-06 03:49 | RAD REPORT ---
EXAM: CT Head and Cervical Spine Without Intravenous Contrast CLINICAL HISTORY: The patient is 64 years old and is Female; Fall. TECHNIQUE: Axial computed tomography images of the head/brain and cervical spine without intravenous contrast. Sagittal and coronal reformatted images were created and reviewed. This CT exam was performed using one or more of the following dose reduction techniques: automated exposure control, adjustmen t of the mA and/or kV according to patient size, and/or use of iterative reconstruction technique. COMPARISON: CT Head 07/23/2024 (report only). FINDINGS: ARTIFACTS: Some images are degraded by patient motion artifact. BRAIN: Unremarkable. No hemorrhage. No significant white matter disease. No edema. VENTRICLES: Unremarkable. No ventriculomegaly. SKULL: No acute fracture. SINUSES: Unremarkable as visualized. No acute sinusitis. MASTOID AIR CELLS: Unremarkable as visualized. No mastoid effusion. VERTEBRAE: Unremarkable. No acute fracture. Normal alignment. DISCS/SPINAL CANAL/NEURAL FORAMINA: Minimal rotational subluxation of C1 on C2 likely positional. Mild degenerative changes throughout the cervical spine. Disc space narrowing greatest at C6-7. Mild multilevel facet arthritis. Small central disc protrusion suspected at C4-5 contributing to mini mal central canal narrowing. SOFT TISSUES: Unremarkable. VASCULATURE: Scattered vascular calcifications. IMPRESSION: Chronic appearing findings. Consider MRI if symptoms persist. Electronically signed by: Wilfred Sheehan MD 04/06/2025 03:26 AM CDT Due to temporary technical issues with the PACS/[place] reporting system, reports are being felipe d by the in-house radiologist without review as a courtesy to ensure prompt reporting the interpreting radiologist is fully responsible for the content of the report. Transcribed Date/Time: 04/06/2025 3:48 AM
[2025-04-06] MEDS ORDERED: NA CHLORIDE 0.9% 1,000 ML ONE (03:51)
[2025-04-06] MEDS ORDERED: FENTANYL CITR 100 MCG/2 ML ONE ×3 (03:51→06:09)
[2025-04-06 04:02] LABS: Blood Morphology Comment NOT SEEN (NOT SEEN); White Blood Cell Scan OK (OK)
[2025-04-06 04:07] LABS: Sqamous Epithelial <5 /HPF (None Seen); Urine Culture Reflex Order NOT NEEDED; Urine Microscopic Reflex YN ORDER UMIC
[2025-04-06 04:36] LABS: METHAMPHETAM NEGATIVE (NEGATIVE); THC Cannibis NEGATIVE (NEGATIVE)
--- NOTE | 2025-04-06 05:32 | RAD REPORT ---
INDICATION: PAIN COMPARISON: No existing relevant imaging studies are available FINDINGS: Single frontal view of the chest was obtained. SUPPORT DEVICES: None HEART/MEDIASTINUM: Cardiomediastinal contours are normal. LUNGS/PLEURA: No focal consolidation. No pleural effusion or pneumothorax. OTHER: No other significant findings. IMPRESSION: No acute findings. Electronically signed by: Ishmael Hernandez DO 04/06/2025 02:53 AM CDT RP NR Due to temporary technical issues with the PACS/[employer] reporting system, reports are being felipe d by the in-house radiologist without review as a courtesy to ensure prompt reporting the interpreting radiologist is fully responsible for the content of the report. Transcribed Date/Time: 04/06/2025 5:32 AM
--- NOTE | 2025-04-06 05:32 | RAD REPORT ---
EXAM: XR Right Humerus, 2 or More Views CLINICAL HISTORY: The patient is 64 years old and is Female; PAIN TECHNIQUE: Frontal and lateral views of the right humerus. COMPARISON: No relevant prior studies available. FINDINGS: BONES/JOINTS: Comminuted and impacted proximal humeral fracture is present. The humeral head is l ocated. No dislocation. SOFT TISSUES: Unremarkable. IMPRESSION: Proximal humeral fracture. Electronically signed by: Allison Jolly MD 04/06/2025 02:52 AM CDT RP Due to temporary technical issues with the PACS/GTx reporting system, reports are being felipe d by the in-house radiologist without review as a courtesy to ensure prompt reporting the interpreting radiologist is fully responsible for the content of the report. Transcribed Date/Time: 04/06/2025 5:32 AM
--- NOTE | 2025-04-06 05:37 | ER ---
Nurse's Notes [facility] Name: Saba Ahumada Age: 64 yrs Sex: Female : 1960 Arrival Date: 04/06/2025 Time: 00:19 Bed 13 Private MD: Diagnosis: Fracture of upper end of humerus-right;Fall on same level from slipping, tripping and stumbling with subsequent striking against object;Diabetes mellitus due to underlying condition with hyperglycemia Presentation: 04/06 00:32 Chief complaint: EMS states: Fell in the yard earlier today at an unknown time. PT was cc6 found on the floor by screaming of pain in the right arm. Brusing on the right upper arm and crepitus was felt. Upon arrival pt was A\T\O X4. No LOC. Reported severe pain 20 mg of ketamine IVP given. Coronavirus screen: Client denies travel out of the [place] in the last 14 days. At this time, the client does not indicate any symptoms associated with coronavirus-19. Ebola Screen: No symptoms or risks identified at this time. Initial Sepsis Screen: Does the patient meet any 2 criteria? No. Patient's initial sepsis screen is negative. Does the patient have a suspected source of infection? No. Patient's initial sepsis screen is negative. Risk Assessment: Do you want to hurt yourself or someone else? Patient reports no desire to harm self or others. Onset of symptoms was April 06, 2025. 00:32 Method Of Arrival: EMS: [facility] cc6 00:32 Acuity: NAYLA 3 cc6 00:32 Care prior to arrival: IV initiated. 20 GA, in the right forearm. cc6 01:00 Mechanism of Injury: Fall out of chair. Trauma event details: Injury occurred in the [address] Triage Assessment: 00:32 General: Appears distressed, uncomfortable, Behavior is responds to painful stimuli. 20 cc6 mg Ketamine given HAND MOLDER MEAT. Pain: Noted to be moaning, Unable to use pain scale. Patient appears to be grimacing, to be moaning. 00:32 EENT: No deficits noted. Neuro: Level of Consciousness is awake, lethargic, Oriented to cc6 none. Cardiovascular: Patient's skin is warm and dry. Pulses are all present. Cardiovascular: Rhythm is sinus rhythm. Respiratory: Airway is patent Respiratory effort is even, unlabored, Respiratory pattern is regular, symmetrical. GI: No signs and/or symptoms were reported involving the gastrointestinal system. Abdomen is round obese. : No signs and/or symptoms were reported regarding the genitourinary system. Urine is cloudy. Derm: Bruising that is dark purple, on anterior aspect of right shoulder and right bicep. Musculoskeletal: Range of motion: limited in right arm cast on left arm. Historical: - Allergies: 01:15 Prednisone; ha1 - PMHx: 01:15 Anxiety; Cirrhosis; Diabetes - IDDM; Fibromyalgia; Hypertension; Hypothyroidism; ha1 - PSHx: 01:15 Total abdominal hysterectomy; ha1 - Immunization history:: Adult Immunizations unknown. - Infectious Disease History:: Denies. - Social history:: Smoking status: unknown. Screenin:56 [facility] ED Fall Risk Assessment (Adult) History of falling in the last 3 months, cc6 including since admission Yes- fall prone (multiple falls) (3 pts) Confusion or Disorientation Yes (5 pts) Intoxicated or Sedated No (0 pts) Impaired Gait Yes (1 pt) Mobility Assist Device Used Yes (1 pt) Altered Elimination Yes (1 pt) Score/Fall Risk Level 3 or more points = High Risk Oriented to surroundings, Maintained a safe environment, Educated pt \T\ family on fall prevention, incl call for assistance when getting out of bed, Hourly rounding (assess needs \T\ fall precautionary measures) done. Abuse screen: Denies threats or abuse. Denies injuries from another. Nutritional screening: No deficits noted. Tuberculosis screening: No symptoms or risk factors identified. Primary Survey: 01:00 NO uncontrolled hemorrhage observed. Breathing/Chest: Spontaneous respiratory effort, ha1 equal unlabored respirations, breath sounds clear bilaterally, regular pattern, symmetrical chest rise and fall. Respiratory effort: spontaneous, Breath sounds: clear, Respiratory pattern: regular, Chest inspection: symmetrical rise and fall of the chest. Circulation: No external hemorrhage present. Regular and strong central pulse, skin warm/dry/normal color. Pulses: palpable right radial artery, right posterior tibial artery, left radial artery and left posterior tibial artery. Disability Pupils are equal, round, reactive to light and accommodation. Assessment: 00:32 Reassessment: SEE TRIAGE. cc6 01:30 Reassessment: No changes from previously documented assessment. Patient and/or family cc6 updated on plan of care and expected duration. Pain level reassessed. 02:30 Reassessment: No changes from previously documented assessment. Patient and/or family cc6 updated on plan of care and expected duration. Pain level reassessed. 03:25 Reassessment:. cc6 03:27 Reassessment: No changes from previously documented assessment. Patient and/or family cc6 updated on plan of care and expected duration. Pain level reassessed. 04:37 Reassessment: No changes from previously documented assessment. Patient and/or family cc6 updated on plan of care and expected duration. Pain level reassessed. 05:30 Reassessment: No changes from previously documented assessment. Patient and/or family cc6 updated on plan of care and expected duration. Pain level reassessed. pain 6/10. 06:00 Reassessment: No changes from previously documented assessment. Patient and/or family cc6 updated on plan of care and expected duration. Pain level reassessed. pain 9/10 PA Page notified. 06:26 Reassessment: pain 6/10. cc6 07:20 Reassessment: Pt resting with eyes closed on full occupational therapy professor, showing no signs of jp5 distress or discomfort. Vital signs stable. Vital Signs: 00:32 BP 142 / 62; Pulse 72; Resp 16; Pulse Ox 99% on 2 lpm NC; Weight 68.04 kg; Height 5 ft. cc6 4 in. ; 01:14 BP 130 / 57; Pulse 68; Resp 18 S; Pulse Ox 97% on 3 lpm NC; ha1 02:15 BP 138 / 51; Pulse 70; Resp 17 S; Pulse Ox 99% on 3 lpm NC; ha1 03:24 BP 117 / 57; Pulse 73; Resp 9; Pulse Ox 99% on 3 lpm NC; cc6 04:37 BP 118 / 61; Pulse 75; Resp 17; Pulse Ox 99% on R/A; cc6 05:20 BP 165 / 70; Pulse 74; Resp 10; Pulse Ox 93% on R/A; cc6 06:24 BP 151 / 68; Pulse 76; Resp 9; Pulse Ox 92% on R/A; cc6 07:20 BP 143 / 69; Pulse 78; Resp 12; Pulse Ox 92% on R/A; Pain 0/10; jp5 09:17 BP 150 / 67; Pulse 78; Resp 14; Temp 98(O); Pulse Ox 98% ; jp5 00:32 Body Mass Index 25.75 (68.04 kg, 162.56 cm) cc6 07:20 Pain Scale: Adult jp5 Nhan Coma Score: 01:00 Eye Response: spontaneous(4). Motor Response: withdraws from pain(4). Verbal Response: ha1 confused(4). Total: 12. Trauma Score (Adult): 01:00 Eye Response: spontaneous(1); Verbal Response: confused(1); Motor Response: withdraws ha1 from pain(1); Systolic BP: > 89 mm Hg(4); Respiratory Rate: 10 to 29 per min(4); Fouke Score: 12; Trauma Score: 11 ED Course: 00:32 Patient arrived in ED. kl 00:33 Davonte Laurent PA-C is PHCP. cp 00:33 Davonte Ziegler MD is Attending Physician. cp 00:35 Andree Vargas, RANDALL is Primary Nurse. cc6 01:35 Triage completed. cc6 01:54 Maintain EMS IV. Dressing intact. Good blood return noted. Site clean \T\ dry. Gauge \T\ cc 6 site: 20 G RFA. Flushed with 10 mL NS. 01:58 Patient has correct armband on for positive identification. Bed in low position. Call cc6 light in reach. Side rails up X2. 01:59 Chest Abd Pelvis Wo Con In Process Unspecified. EDMS 01:59 Head C Spine Mpr Wo Con In Process Unspecified. EDMS 02:08 Chest Single View In Process Unspecified. EDMS 02:08 Humerus Right In Process Unspecified. EDMS 04:09 UDS Sent. cc6 05:34 Pancho Cash is Hospitalizing Provider. cp 09:14 Troponin High Sensitivity Sent. jp5 09:14 Hemoglobin A1c Sent. jp5 09:24 Report given to Yellow sheet faxed and tubed to 2nd floor, Adriana PEREIRA confirmed received. jp5 Administered Medications: 03:58 Drug: NS 0.9% IV 1000 ml IV at 1000 ml once; to be given as a bolus over 60 minutes cc6 Route: IV; Rate: 1000 ml; Site: right forearm; 04:55 Follow up: Response: No adverse reaction; IV Status: Completed infusion; IV Intake: cc6 1000ml 03:58 Drug: fentaNYL (PF) IVP 25 mcg IVP once Route: IVP; Site: right forearm; cc6 04:38 Follow up: Response: No adverse reaction; Pain is decreased; RASS: Alert and Calm (0) cc6 04:55 Drug: fentaNYL (PF) IVP 25 mcg IVP once Route: IVP; Site: right forearm; cc6 05:20 Follow up: Response: No adverse reaction; Pain is decreased; RASS: Alert and Calm (0) cc6 06:10 Drug: fentaNYL (PF) IVP 25 mcg IVP once Route: IVP; Site: right forearm; cc6 07:09 Follow up: Response: No adverse reaction; Pain is decreased; RASS: Alert and Calm (0) cc6 06:10 Drug: Insulin Regular Human Sub-Q 10 units Sub-Q once; blood glucose >300 cc6 {Co-Signature: ha1 (Mercedes Nunez RN).} Route: Sub-Q; Site: abdomen; 07:08 Follow up: Response: No adverse reaction; Blood sugar is elevated cc6 Point of Care Testing: Blood Glucose: 06:02 Blood Glucose: 427 mg/dL; cc6 07:00 Blood Glucose: 447 mg/dL; cc6 Ranges: Intake: 04:55 IV: 1000ml; Total: 1000ml. cc6 Outcome: 05:36 Decision to Hospitalize by Provider. cp 09:56 Admitted to Med/surg accompanied by tech, via stretcher, with chart, jp5 09:56 Condition: stable 09:56 Instructed on the need for admit, Demonstrated understanding of instructions, 09:57 Patient left the ED. jp5 Signatures: Dispatcher [employer] EDChayito Foote RN Davonte Treviño PA-C PAMercedes Abbott cp, RN RN ha1 Gretel Todd RN RN jp5 Andree Vargas RN RN cc6 Mercedes Nunez RN ha1 Corrections: (The following items were deleted from the chart) 02:22 01:58 Maintain EMS IV. Dressing intact. Good blood return noted. Site clean \T\ dry. ha1 Gauge \T\ site: 20 G RFA. cc6
--- NOTE | 2025-04-06 05:37 | EDPHYS ---
Physician Documentation [facility] Name: Saba Ahumada Age: 64 yrs Sex: Female : 1960 Arrival Date: 04/06/2025 Time: 00:19 Bed 13 Private MD: ED Physician Davonte Ziegler HPI: 04/06 00:40 This 64 yrs old Female presents to ER via EMS with complaints of Fall Injury. cp 00:40 Details of fall: The patient fell from an upright position. Onset: The symptoms/episode cp began/occurred yesterday, at an unknown time. Associated injuries: The patient sustained right upper arm. 00:40 Patient is a 64-year-old female with past medical history significant for cirrhosis, cp diabetes, hypertension who was brought in by EMS after reported fall sometime yesterday while in her yard. Patient reportedly had an injury to her right upper arm. Upon EMSs evaluation patient was reportedly in significant amount of pain so she was administered ketamine and route and is currently on oxygen via nasal cannula and sedated. Historical: - Allergies: 01:15 Prednisone; ha1 - PMHx: 01:15 Anxiety; Cirrhosis; Diabetes - IDDM; Fibromyalgia; Hypertension; Hypothyroidism; ha1 - PSHx: 01:15 Total abdominal hysterectomy; ha1 - Immunization history:: Adult Immunizations unknown. - Infectious Disease History:: Denies. - Social history:: Smoking status: unknown. ROS: 00:45 Constitutional: Negative for fever, cp 00:45 MS/extremity: Positive for injury or acute deformity, ecchymosis, swelling, tenderness, of the right upper arm, 00:45 Neuro: Positive for altered mental status, cp Exam: 00:40 ECG was reviewed by the Attending Physician. cp 00:50 Constitutional: The patient appears non-diaphoretic, non-toxic, well developed, well cp nourished, 00:50 Head/Face: Normocephalic, atraumatic. cp 00:50 Chest/axilla: Inspection: normal, 00:50 Cardiovascular: Rate: normal, Rhythm: regular, Edema: is not appreciated, JVD: is not appreciated, 00:50 Respiratory: the patient does not display signs of respiratory distress, Respirations: normal, no use of accessory muscles, no retractions, labored breathing, is not present, Breath sounds: are clear throughout, no decreased breath sounds, no stridor, no wheezing, 00:50 Abdomen/GI: Inspection: distension, that is mild, Bowel sounds: active, all quadrants, 00:50 Musculoskeletal/extremity: Extremities: noted in the right upper arm: deformity, ecchymosis, swelling, noted in the left arm: casted from mid humerus to wrist, ROM: limited passive range of motion, in the right upper arm, Vital Signs: 00:32 BP 142 / 62; Pulse 72; Resp 16; Pulse Ox 99% on 2 lpm NC; Weight 68.04 kg; Height 5 ft. cc6 4 in. ; 01:14 BP 130 / 57; Pulse 68; Resp 18 S; Pulse Ox 97% on 3 lpm NC; ha1 02:15 BP 138 / 51; Pulse 70; Resp 17 S; Pulse Ox 99% on 3 lpm NC; ha1 03:24 BP 117 / 57; Pulse 73; Resp 9; Pulse Ox 99% on 3 lpm NC; cc6 04:37 BP 118 / 61; Pulse 75; Resp 17; Pulse Ox 99% on R/A; cc6 05:20 BP 165 / 70; Pulse 74; Resp 10; Pulse Ox 93% on R/A; cc6 06:24 BP 151 / 68; Pulse 76; Resp 9; Pulse Ox 92% on R/A; cc6 07:20 BP 143 / 69; Pulse 78; Resp 12; Pulse Ox 92% on R/A; Pain 0/10; jp5 09:17 BP 150 / 67; Pulse 78; Resp 14; Temp 98(O); Pulse Ox 98% ; jp5 00:32 Body Mass Index 25.75 (68.04 kg, 162.56 cm) cc6 07:20 Pain Scale: Adult jp5 Nhan Coma Score: 01:00 Eye Response: spontaneous(4). Motor Response: withdraws from pain(4). Verbal Response: ha1 confused(4). Total: 12. Trauma Score (Adult): 01:00 Eye Response: spontaneous(1); Verbal Response: confused(1); Motor Response: withdraws ha1 from pain(1); Systolic BP: > 89 mm Hg(4); Respiratory Rate: 10 to 29 per min(4); [place] Score: 12; Trauma Score: 11 MDM: 00:35 Medical Screening Exam initiated 05:38 Management of patient was discussed with the following: Non Destructive Testing Technician: Dr Vragas, ortho, will consult on patient after discussion. 05:45 Data reviewed: vital signs, nurses notes, lab test result(s), EKG, radiologic studies, CT scan, plain films, and as a result, I will admit patient. 05:45 I considered the following discharge prescriptions or medication management in the emergency department Medications were administered in the Emergency Department. See MAR. Independent interpretation of the following test(s) in the Emergency Department EKG: See my EKG interpretation above. Care significantly affected by the following chronic conditions: Diabetes, Hypertension, Liver Disease. Counseling: I had a detailed discussion with the patient and/or guardian regarding the historical points, exam findings, and any diagnostic results supporting the discharge/admit diagnosis, lab results, radiology results. Response to treatment: the patient's symptoms have mildly improved after treatment, and as a result, I will admit patient, IV pain medication. 05:45 Management of patient was discussed with the following: Hospitalist: FELICIA Das will cp admit after discussion to hospitalist service. 04/06 00:34 Order name: UA Rfx [place] Cult if indicated; Complete Time: 04:37 04/06 04:38 Interpretation: Normal except: [facility] Turbid; UGLUC 3+; UUROB 1+; HYAL >20. 04/06 01:17 Order name: Basic Metabolic Panel; Complete Time: 03:09 [facility] 04/06 03:09 Interpretation: Normal except: GLUC 308; BUN 21; CRE 1.23; GFR 48. 04/06 01:17 Order name: Liver (Hepatic) Function; Complete Time: 03:09 [facility] 04/06 03:10 Interpretation: Normal except: ALK 354; BILIT 1.5; BILID 0.7; TP 5.9; ALB 2.7; A/G 0.8. 04/06 01:17 Order name: Troponin High Sensitivity; Complete Time: 03:09 [facility] 04/06 04:41 Interpretation: Reviewed. 04/06 01:17 Order name: NT PRO-BNP; Complete Time: 03:09 [facility] 04/06 01:17 Order name: Magnesium; Complete Time: 03:09 [facility] 04/06 01:17 Order name: CBC with Automated Diff; Complete Time: 04:37 EDMS 04/06 03:10 Interpretation: Normal except: RBC 3.58; HGB 11.9; HCT 34.0; PLT 70; RDW 16.4. cp 04/06 01:17 Order name: Protime (+INR); Complete Time: 03:09 EDMS 04/06 04:41 Interpretation: Abnormal: PT 14.4. cp 04/06 01:58 Order name: CBC Smear Scan; Complete Time: 04:37 EDMS 04/06 04:40 Interpretation: Reviewed. cp 04/06 03:28 Order name: ETOH Level; Complete Time: 04:37 cp 04/06 04:40 Interpretation: Reviewed. 04/06 03:28 Order name: UDS; Complete Time: 04:37 04/06 04:38 Interpretation: Normal except: BZO POSITIVE; OPI POSITIVE. cp 04/06 06:14 Order name: Glucose, Ancillary Testing EDMS 04/06 07:14 Order name: Glucose, Ancillary Testing EDMS 04/06 08:52 Order name: Hemoglobin A1c EDMS 04/06 08:52 Order name: NT PRO-BNP EDMS 04/06 08:52 Order name: Basic Metabolic Panel EDMS 04/06 08:52 Order name: Basic Metabolic Panel EDMS 04/06 08:52 Order name: Basic Metabolic Panel EDMS 04/06 08:52 Order name: Basic Metabolic Panel EDMS 04/06 08:52 Order name: Basic Metabolic Panel EDMS 04/06 08:52 Order name: Basic Metabolic Panel EDMS 04/06 08:52 Order name: CBC with Automated Diff EDMS 04/06 08:52 Order name: CBC with Automated Diff EDMS 04/06 08:52 Order name: CBC with Automated Diff EDMS 04/06 08:52 Order name: CBC with Automated Diff EDMS 04/06 08:52 Order name: CBC with Automated Diff EDMS 04/06 08:52 Order name: CBC with Automated Diff EDMS 04/06 08:52 Order name: Lipid Profile EDMS 04/06 08:52 Order name: Lipid Profile EDMS 04/06 08:52 Order name: Lipid Profile EDMS 04/06 08:52 Order name: Liver (Hepatic) Function EDMS 04/06 08:52 Order name: Liver (Hepatic) Function EDMS 04/06 08:52 Order name: Magnesium EDMS 04/06 08:52 Order name: Magnesium EDMS 04/06 08:52 Order name: Magnesium EDMS 04/06 08:52 Order name: Magnesium EDMS 04/06 08:52 Order name: Magnesium EDMS 04/06 08:52 Order name: Magnesium EDMS 04/06 08:52 Order name: Phosphorus EDMS 04/06 08:52 Order name: Phosphorus EDMS 04/06 08:52 Order name: Phosphorus EDMS 04/06 08:52 Order name: Phosphorus EDMS 04/06 08:52 Order name: Phosphorus EDMS 04/06 08:52 Order name: Phosphorus EDMS 04/06 08:52 Order name: Troponin High Sensitivity EDMS 04/06 08:52 Order name: Troponin High Sensitivity EDMS 04/06 08:52 Order name: Troponin High Sensitivity EDMS 04/06 08:52 Order name: Troponin High Sensitivity EDMS 04/06 01:16 Order name: Chest Abd Pelvis Wo Con; Complete Time: 04:37 EDMS 04/06 04:40 Interpretation: Report reviewed. cp 04/06 01:16 Order name: Head C Spine Mpr Wo Con; Complete Time: 04:37 EDMS 04/06 04:40 Interpretation: Report reviewed. cp 04/06 01:21 Order name: Chest Single View; Complete Time: 05:37 EDMS 04/06 01:21 Order name: Humerus Right; Complete Time: 05:37 EDMS 04/06 09:16 Order name: ERT ORTHOSTATIC V/S EDRI 04/06 08:52 Order name: CONS Physician Consult EDRI 04/06 08:52 Order name: Physical Therapy Consult EDRI 04/06 00:34 Order name: Cardiac monitoring; Complete Time: 00:36 cp 04/06 00:34 Order name: EKG - Nurse/Tech; Complete Time: 00:36 cp 04/06 00:34 Order name: IV Saline Lock; Complete Time: 00:36 cp 04/06 00:34 Order name: Labs collected and sent; Complete Time: 00:36 cp 04/06 00:34 Order name: O2 Per Protocol; Complete Time: 00:36 cp 04/06 00:34 Order name: O2 Sat Monitoring; Complete Time: 00:36 cp 04/06 00:34 Order name: Cath; Complete Time: 01:23 cp 04/06 03:45 Order name: Sling; Complete Time: 05:01 cp 04/06 05:40 Order name: Accucheck Blood Glucose; Complete Time: 06:02 cp EC:40 Rate is 72 beats/min. Rhythm is regular. OK interval is normal. QRS interval is normal. cp QT interval is prolonged at 454 msec. T waves are Inverted in lead aVR. Interpreted by me. Reviewed by me. Administered Medications: 03:58 Drug: NS 0.9% IV 1000 ml IV at 1000 ml once; to be given as a bolus over 60 minutes cc6 Route: IV; Rate: 1000 ml; Site: right forearm; 04:55 Follow up: Response: No adverse reaction; IV Status: Completed infusion; IV Intake: cc6 1000ml 03:58 Drug: fentaNYL (PF) IVP 25 mcg IVP once Route: IVP; Site: right forearm; cc6 04:38 Follow up: Response: No adverse reaction; Pain is decreased; RASS: Alert and Calm (0) cc6 04:55 Drug: fentaNYL (PF) IVP 25 mcg IVP once Route: IVP; Site: right forearm; cc6 05:20 Follow up: Response: No adverse reaction; Pain is decreased; RASS: Alert and Calm (0) cc6 06:10 Drug: fentaNYL (PF) IVP 25 mcg IVP once Route: IVP; Site: right forearm; cc6 07:09 Follow up: Response: No adverse reaction; Pain is decreased; RASS: Alert and Calm (0) cc6 06:10 Drug: Insulin Regular Human Sub-Q 10 units Sub-Q once; blood glucose >300 cc6 {Co-Signature: ha1 (Mercedes Nunez RN).} Route: Sub-Q; Site: abdomen; 07:08 Follow up: Response: No adverse reaction; Blood sugar is elevated cc6 Point of Care Testing: Blood Glucose: 06:02 Blood Glucose: 427 mg/dL; cc6 07:00 Blood Glucose: 447 mg/dL; cc6 Ranges: Critical Glucose Levels:Adult <50 mg/dl or >400 mg/dl <40 mg/dl or >180 mg/dl Disposition: 04/07 04:00 Chart complete. cp Disposition Summary: 04/06/25 05:36 Hospitalization Ordered Notes: Hospitalization Status: Inpatient Admission cp Provider: Pancho Cash cp Location: Telemetry/[facility] (Inpatient) cp Condition: Stable cp Problem: new cp Symptoms: have improved cp Bed/Room Type: Standard cp Room Assignment: 220(04/06/25 09:07) eb Diagnosis - Fracture of upper end of humerus - right cp - Fall on same level from slipping, tripping and stumbling with subsequent striking cp against object - Diabetes mellitus due to underlying condition with hyperglycemia cp Forms: - Medication Reconciliation Form cp - SBAR form cp - Leadership Thank You Letter cp Addendum: 04/09/2025 11:30 Co-signature as Attending Physician, Davonte Ziegler MD I agree with the assessment and c guerrero plan of care. Signatures: Dispatcher [employer] EDRI Davonte Ziegler MD MD cha Page, Corey, MARGARETC PA-C Kay Hay Heidy, RN RN ha1 Andree Vargas RN RN cc6 Mercedes Nunez RN ha1 Corrections: (The following items were deleted from the chart) 04/06 00:35 00:35 Humerus Right+RAD.RAD.BRZ ordered. EDRI EDRI 00:35 00:35 UA Rfx [place] Cult if indicated+U.LAB.BRZ ordered. EDRI EDRI 00:35 00:35 Chest Single View+RAD.RAD.BRZ ordered. EDRI EDRI 00:35 00:35 Head C Spine Cap Wo Con+CT.RAD.BRZ ordered. EDRI EDMS :43 00:35 CBC+H.LAB.BRZ ordered. EDRI EDMS :43 00:35 HEPATIC FUNCTION+C.LAB.BRZ ordered. EDRI EDMS :43 00:35 MAGNESIUM+C.LAB.BRZ ordered. EDRI EDMS :43 00:35 PROBNP+C.LAB.BRZ ordered. EDRI EDMS :43 00:35 PROTIME (+INR)+COAG.LAB.BRZ ordered. EDRI EDMS :43 00:35 Troponin High Sensitivity+C.LAB.BRZ ordered. EDRI EDMS :44 00:35 BASIC METABOLIC PANEL+C.LAB.BRZ ordered. EDRI EDMS 04:44 04:42 Constitutional: Negative for fever, cp cp 04:44 04:42 MS/extremity: Positive for ecchymosis, swelling, tenderness, of the right upper cp arm, cp 08:55 08:53 UA Rfx [place] Cult if indicated ordered. EDMS EDMS 09:07 05:36 cp eb 04/07 03:54 04/06 00:45 MS/extremity: Positive for ecchymosis, swelling, tenderness, of the right cp upper arm, cp 04/07 03:59 04/06 00:50 Musculoskeletal/extremity: Extremities: noted in the right upper arm: cp deformity, ecchymosis, swelling, ROM: limited passive range of motion, in the right upper arm, cp
[2025-04-06] MEDS ORDERED: INSULIN REGULAR (HUMAN) 100 UNIT/ML ONE (06:10)
--- NOTE | 2025-04-06 09:15 | P.HP ---
Certification for Inpatient Patient admitted to: Inpatient With expected LOS: >2 Midnights Patient will require the following post-hospital care: None Practitioner: I am a practitioner with admitting privileges, knowledge of patient current condition, hospital course, and medical plan of care. Services: Services provided to patient in accordance with Admission requirements found in Title 42 Section 412.3 of the Code of Federal Regulations Patient History Date of Service: 04/06/25 Reason for admission: right proximal humerus fracture History of Present Illness: Pmhx HTN, anxiety, cirrhosis, diabetesIDDM, fibromyalgia, hypertension, hypothyroidism who presents to the ED status post mechanical fall yesterday at an unknown time. Patient presents with cast to left arm for elbow fracture x 2 weeks ago. On evaluation, Patient is lethargic, tox screen positive for benzos and opioids, and was well as fentanyl given for pain medication in the ED and EMS gave ketamine. She was very lethargic and unable to give ROS. Right humerus x-ray reports "Proximal humeral fracture." CT head and cervical spine reports "DISCS/SPINAL CANAL/NEURAL FORAMINA: Minimal rotational subluxation of C1 on C2 likely positional. Mild degenerative changes throughout the cervical spine. Disc space narrowing greatest at C6-7. Mild multilevel facet arthritis. Small central disc protrusion suspected at C4-5 contributing to minimal central canal narrowing." CT abdomen pelvis without contrast reports "1. Mild areas of dependent and subsegmental atelectasis in each lung most notable towards the bases. 2. Cholelithiasis. 3. Moderate-large diffuse colonic stool burden. 4. Localized area of luminal narrowing and thickening of the ascending colon. This may be related to underdistention. A neoplastic process is not excluded. Correlation with colonoscopy or short-term. 5. Impacted fracture deformity of the distal left radius somewhat age indeterminate but possibly acute or subacute. 6. Fracture deformity of the proximal right humerus. 7. Minimal subcutaneous fat stranding in the bilateral anterior abdominal wall. This may be related to injection sites or due to ill-defined contusions. 8. Other chronic appearing findings. Recommend short-term follow-up if symptoms persist." Chest x-ray reports "No acute findings" Saba will be admitted to hospitalist service for further evaluation and treatment. Allergies prednisone Allergy (Intermediate, Verified 11/06/11 21:59) Itching/Hives/Rash NKDA Allergy (Uncoded 06/09/15 01:30) Unknown Home Medications: ALPRAZolam [Xanax*] 0.5 mg PO PRN 06/09/15 Atorvastatin Calcium [Lipitor] 80 mg PO DAILY 06/09/15 Ergocalciferol (Vitamin D2) [Vitamin D 50,000 Unit Cap] 50,000 unit PO EVERY 7TH DAY 06/09/15 Glimepiride [Amaryl] 4 mg PO DAILY 06/09/15 Hydrocodone Bitartrate [Hysingla ER] 60 mg PO DAILY 06/09/15 Hydromorphone HCl [Dilaudid] 8 mg PO Q4HP PRN 06/09/15 Levothyroxine [Synthroid*] 88 mcg PO [id number] 06/09/15 Lisinopril/Hydrochlorothiazide [Zestoretic 20-25 mg Tablet] 1 each PO DAILY 06/09/15 Naloxegol Oxalate [Movantik] 25 mg PO DAILY 06/09/15 [place]-3 Fatty Acids [Fish Oil] 300 mg PO DAILY 06/09/15 Potassium Chloride [K-Dur] 20 meq PO DAILY 06/09/15 Sitagliptin Phosphate [Januvia*] 100 tab PO DAILY 06/09/15 diazePAM [Diazepam] 5 mg PO PRN 06/09/15 - Past Medical/Surgical History Diabetic: Yes -: diabetes -: fibromyalgia -: HTN -: back sx -: liver biospsy - Social History Smoking Status: Unknown if ever smoked Alcohol use: Yes CD- Drugs: No Caffeine use: Yes Review of Systems is unable to be obtained Physical Examination - Physical Exam General: Other (lethargic) HEENT: Atraumatic, Normocephalic Neck: Supple, 2+ carotid pulse no bruit Respiratory: Clear to auscultation bilaterally, Normal air movement Cardiovascular: Normal pulses, Regular rate/rhythm Gastrointestinal: Normal bowel sounds, Soft and benign Musculoskeletal: No clubbing Integumentary: No rashes Neurological: Other (lethargic) - Studies Laboratory Data (last 24 hrs) 04/06/25 04/06/25 04/06/25 01:03 01:03 01:03 WBC 8.20 Hgb 11.9 L Hct 34.0 L Plt Count 70 L PT 14.4 H INR 1.28 Sodium 137 Potassium 4.3 BUN 21 H Creatinine 1.23 H Glucose 308 H Magnesium 1.6 Total Bilirubin 1.5 H AST 32 ALT 38 Alkaline Phosphatase 354 H 04/06/25 04/06/25 04/06/25 00:34 00:34 00:34 WBC Cancelled Hgb Cancelled Hct Cancelled Plt Count Cancelled PT Cancelled INR Cancelled Sodium Cancelled Potassium Cancelled BUN Cancelled Creatinine Cancelled Glucose Cancelled Magnesium Cancelled Total Bilirubin Cancelled AST Cancelled ALT Cancelled Alkaline Phosphatase Cancelled Assessment and Plan - Plan Assessment and Plan Right proximal humerus fracture Frequent falls Lethargic -Dr. Vargas consulted, no surgical intervention, sling and physical therapy -pain management carefully -Othrostatic vitals -gentle IVF -Continuous telemetry -Trend troponin - ABG: pH 7.43, pCO2 43, PaO2 195, HCO3 28.5 Diabetes mellitus with hyperglycemia -A1C pending -accucheck with SSI -Gentle IVF FRANKIE -Gentle IVF -monitor in morning labs Liver cirrhosis -Tbili 1.5, Direct bilirubin 0.7 -Ammonia 126, lactulose twice daily started -follow in AM labs -Lipid panel Thrombocytopenia -Monitor daily -hold heparin/lovenox Positive tox screen - benzo and opioids, prescribed outpatient DVT ppx SCD, thrombocytopenia noted Full code LOS 2-3 days Discharge Plan: Home Plan to discharge in: 48 Hours - Advance Directives Does patient have a Living Will: No Does patient have a Durable POA for Healthcare: No Time Spent Managing Pts Care (In Minutes): 60
[2025-04-06 09:43] LABS: HDL Cholesterol 41.0 mg/dL (40-60); LDL Cholesterol, Calculated 28.0 mg/dL (<130); LDL Cholesterol,Calc NonReport 28.0; NT PRO-BNP 78.0 pg/mL (<125); Troponin High Sensitivity 3.3 pg/mL (<58.9)
[2025-04-06 10:15] VITALS: O2SAT 98
[2025-04-06] MEDS: INSULIN REGULAR (HUMAN) 100 UNIT/ML SQ SCH (11:24)
[2025-04-06] MEDS: NA CHLORIDE 0.9% 1,000 ML IV SCH (11:25)
[2025-04-06 13:41] VITALS: BMI 25.7
[2025-04-06 13:52] LABS: Arterial Blood Carboxyhemoglob 3.4 % (0.0-1.5); Blood Gas Oxyhemoglobin 96.0 % (94.0-97.0); Blood O2 Saturation 99.7 % (92.0-98.5)
[2025-04-06] MEDS: LACTULOSE 20 GM/30 ML UCUP PO SCH (18:09)
--- NOTE | 2025-04-06 18:29 | CON ---
Date of Consultation: 04/06/2025 History Of Present Illness: This is my first time seeing this patient to my knowledge. She apparent ly had an injury yesterday. Was seen and examined in the emergency room overnight and I was called ang y the ER staff that they were going to admit her for pain control that she had a broken arm on her le ft side, but now has a proximal humerus fracture on the right. They wanted to admit her through the hospitalist to the hospital and I got a call this morning from the hospitalist for this consultation. On physical examination, all of her long bones and joints were palpated without pain or crepitation w ith the exception of her right shoulder which has swelling and ecchymosis which was consistent with a proximal humerus fracture. She also has a long-arm cast on her left side. The patient is not reall y able to give me much history. She appears to be quite sedated. I do have questions regarding who is taking care of her left upper extremity, and she is able to communicate that it is a doctor in [facility], although she is not really able to give me their name or any more information regarding that. I spoke with the hospitalist over the phone and the hospitalist unfortunately had the same experience that I did, which was extremely difficult to communicate with because of probable sedation or other issues. I also attempted to call her as listed on the demographics and it went to voicemail. Assessment: A 64-year-old female with multiple medical problems, apparently has an orthopedist in [facility] who is treating her for another problem in her left upper extremity, now with new-onset right p roximal humerus fracture. This proximal humerus fracture, though comminuted, is not significantly di splaced. Given her medical issues, most likely this would do best with nonoperative management. Obv iously, having a left upper extremity in a long-arm cast complicates things. As far as care of the r ight shoulder, we would recommend continued sling treatment. She can engage in range of motion of th e elbow, wrist and hand, definitely can follow up with me in my office for a right shoulder. However, the current plan is unclear definitely and call me with any questions. SE/MODL Voice ID: [id number] Report ID: [id number]
[2025-04-06] MEDS ORDERED: HOME MED 1 EA UNK (Hydromorphone Hcl [Dilaudid] 8 MG Tablet) PO PRN (20:21)
[2025-04-06] MEDS: MORPHINE 2 MG/ML SYR IV PRN (20:52)
[2025-04-06] MEDS: Mupirocin NASAL 2 APPL/1 GM TUBE NAS SCH (20:52)
[2025-04-06] MEDS ORDERED: DIAZEPAM 5 MG TABLET PO SCH (21:00)
[2025-04-07] MEDS: LEVOTHYROXINE SOD 0.088 MG TAB PO SCH (05:46)
[2025-04-07 07:16] LABS: Absolute Lymphocytes (CBC) 1.5 K/uL (0.7-4.9); Hematocrit 29.0 % (36.0-45.0); Hemoglobin 9.7 g/dL (12.0-15.0); MCH 32.1 pg (27.0-35.0); MCHC 33.5 g/dL (32.0-36.0); MCV 96.0 fL (80-100); MPV 9.3 fL (7.6-11.3); Nucleated RBC Absolute Count 0.0 (0-0); Nucleated Red Blood Cells % 0.1 % (0-0); RBC Red Blood Cell Count 3.02 M/uL (3.86-4.86); White Blood Count 5.60 thou/uL (4.3-10.9)
[2025-04-07 07:43] LABS: Blood Morphology Comment NOT SEEN (NOT SEEN); White Blood Cell Scan OK (OK)
[2025-04-07] MEDS: HYDROMORPHONE HCL 1 MG/ML INJ IV PRN (08:36)
[2025-04-07] MEDS: LIDOCAINE 4% PATCH TOP SCH (08:36)
[2025-04-07] MEDS: ATORVASTATIN 80 MG TAB PO SCH (08:37)
[2025-04-07] MEDS: hydroCHLOROthiazide 25 MG TAB PO SCH (11:16)
[2025-04-07] MEDS: OXYCODONE HCL 5 MG TAB PO PRN (11:18)
[2025-04-07] MEDS: LACTULOSE 20 GM/30 ML UCUP PO SCH (14:42)
--- NOTE | 2025-04-07 15:51 | P.PN ---
Date of Service: 04/07/25 Subjective Awake, c/o severe right shoulder pain Family at the bedside reports she was pulling weeds when she fell over on her right side ROS 10 point ROS as noted above, otherwise negative Physical Exam General: Awake, severe pain to right shoulder HEENT: Atraumatic, Normocephalic Neck: Supple, 2+ carotid pulse no bruit Respiratory: Clear to auscultation bilaterally, Normal air movement Cardiovascular: Normal pulses, Regular rate/rhythm Gastrointestinal: Normal bowel sounds, Soft and benign Musculoskeletal: No clubbing Integumentary: No rashes Neurological: Awake, severe pain Vitals Reviewed Problem list Right proximal humerus fracture Left fractured elbow s/p cast Frequent falls Lethargic Diabetes mellitus with hyperglycemia FRANKIE Liver cirrhosis Thrombocytopenia Positive tox screen Assessment and Plan Right proximal humerus fracture Left fractured elbow s/p cast Frequent falls Lethargic -Dr. Vargas consulted, no surgical intervention, sling and physical therapy -Will require aggressive physical therapy outpatient - Continue pain management carefully -Othrostatic vitals pending -gentle IVF -Continuous telemetry, no acute events - Troponin trended flat - ABG: pH 7.43, pCO2 43, PaO2 195, HCO3 28.5 Diabetes mellitus with hyperglycemia -A1C 8.8 -accucheck with SSI -Gentle IVF FRANKIE -Gentle IVF -monitor in morning labs Liver cirrhosis Thrombocytopenia -Tbili 1.5, Direct bilirubin 0.7 -Ammonia 52 -Will hold lactulose -follow in AM labs -Lipid panel pending -Monitor daily, dropped to 31,000 -hold heparin/lovenox Positive tox screen - benzo and opioids, prescribed outpatient DVT ppx SCD, thrombocytopenia noted Full code LOS 2-3 days Dispo IRF vs outpatient physical therapy Time Spent Managing Pts Care (In Minutes): 35
[2025-04-08] MEDS: ALPRAZOLAM 0.5 MG TABLET PO PRN (00:03)
[2025-04-08] MEDS: INSULIN GLARGINE 100 UNIT/ML SQ SCH (08:27)
[2025-04-08] MEDS: HOME MED 1 EA UNK (Naloxegol Oxalate [Movantik] 25 MG Tablet) PO SCH (09:00)
--- NOTE | 2025-04-08 12:36 | P.PN ---
Date of Service: 04/08/25 Subjective Awakes to voice, very uncomfortable, will need good pain control for physical therapy and will likely need IRF or SNF Family at the bedside, would like to take her home if possible. ROS 10 point ROS as noted above, otherwise negative Physical Exam General: Awake and oriented x3, uncomfortable HEENT: Atraumatic, Normocephalic Respiratory: Clear BBS, Normal air movement, on RA Cardiovascular: Normal pulses, Regular rate/rhythm Gastrointestinal: Normal bowel sounds, Soft and benign on palpation Musculoskeletal: No clubbing, severe pain to right shoulder Integumentary: No rashes Neurological: Awake, severe pain Vitals Reviewed Problem list Right proximal humerus fracture Left fractured elbow s/p cast Frequent falls Lethargic Diabetes mellitus with hyperglycemia FRANKIE Liver cirrhosis Thrombocytopenia Positive tox screen Assessment and Plan Right proximal humerus fracture Right arm swelling Left fractured elbow s/p cast Frequent falls Lethargic -Dr. Vargas consulted, no surgical intervention, sling and physical therapy recommended -Will require aggressive physical therapy outpatient - Continue pain management carefully -Othrostatic vitals pending -gentle IVF -Continuous telemetry, no acute events - Troponin trended flat - ABG: pH 7.43, pCO2 43, PaO2 195, HCO3 28.5 -Physical therapy with right arm and hand movement -with bilateral upper extremity fractures, patient may need to seek SNF or IRF to continue to manage pain with physical therapy -right upper extremity Venous ultrasound to r/o DVT Diabetes mellitus with hyperglycemia -A1C 8.8 -Added semglee 7 units -accucheck with SSI -Gentle IVF FRANKIE -Gentle IVF -monitor in morning labs Liver cirrhosis Thrombocytopenia -Tbili 1.5, Direct bilirubin 0.7 -Ammonia 52 -Will hold lactulose -follow in AM labs -Lipid panel pending -Monitor daily, dropped to 31,000 -hold heparin/lovenox Positive tox screen - benzo and opioids, prescribed outpatient DVT ppx SCD, thrombocytopenia noted Full code LOS 2-3 days Dispo IRF vs outpatient physical therapy Time Spent Managing Pts Care (In Minutes): 38
[2025-04-08 16:02] LABS: Absolute Lymphocytes (CBC) 1.5 K/uL (0.7-4.9); Hematocrit 30.8 % (36.0-45.0); Hemoglobin 10.5 g/dL (12.0-15.0); MCH 32.4 pg (27.0-35.0); MCHC 34.0 g/dL (32.0-36.0); MCV 95.2 fL (80-100); MPV 9.3 fL (7.6-11.3); Nucleated RBC Absolute Count 0.0 (0-0); Nucleated Red Blood Cells % 0.1 % (0-0); RBC Red Blood Cell Count 3.24 M/uL (3.86-4.86); White Blood Count 5.90 thou/uL (4.3-10.9)
[2025-04-08 16:23] LABS: ALT/SGPT 34.0 U/L (13-56); AST/SGOT 37.0 U/L (15-37); Albumin 2.2 g/dL (3.4-5.0); Albumin/Globulin Ratio 0.7 (1.1-1.8); Alkaline Phosphatase 308.0 U/L (45-117); Anion Gap 10.1 mEq/L (5.0-15.0); BUN Blood Urea Nitrogen 14.0 mg/dL (7-18); Bilirubin Indirect, Calculated 0.7 mg/dL (0.2-0.8); Globulin 3.1 g/dL (2.3-3.5); Magnesium 1.7 mg/dL (1.6-2.4); Potassium 4.1 mEq/L (3.5-5.1); Troponin High Sensitivity 4.4 pg/mL (<58.9)
[2025-04-08 16:26] LABS: Glucose Level 403.0 mg/dL (74-106)
--- NOTE | 2025-04-08 16:35 | RAD REPORT ---
EXAMINATION: UPPER EXTREMITY VENOUS UNILATE CLINICAL INDICATION: Female, 64 years old.right arm and hand swelling RIGHT TECHNIQUE: Multiplanar grayscale and color Doppler images were obtained in a upper extremity venous ultrasound. Spectral analysis of the Doppler waveforms were performed. COMPARISON: No prior exams FINDINGS: The internal jugular vein, subclavian vein, axillary vein, basilic vein, brachial vein, cephalic vein , radial vein, and ulnar vein were evaluated and patent. IMPRESSION: No evidence of deep venous thrombosis in the right upper extremity.
[2025-04-09] MEDS: Mupirocin NASAL 2 APPL/1 GM TUBE NAS SCH (09:04)
[2025-04-09 09:32] LABS: Absolute Lymphocytes (CBC) 1.4 K/uL (0.7-4.9); Hematocrit 28.6 % (36.0-45.0); Hemoglobin 9.8 g/dL (12.0-15.0); MCH 32.5 pg (27.0-35.0); MCHC 34.3 g/dL (32.0-36.0); MCV 94.8 fL (80-100); MPV 8.7 fL (7.6-11.3); Nucleated RBC Absolute Count 0.0 (0-0); Nucleated Red Blood Cells % 0.0 % (0-0); RBC Red Blood Cell Count 3.02 M/uL (3.86-4.86); White Blood Count 5.80 thou/uL (4.3-10.9)
[2025-04-09 09:50] LABS: Anion Gap 9.2 mEq/L (5.0-15.0); BUN Blood Urea Nitrogen 13.0 mg/dL (7-18); Magnesium 1.4 mg/dL (1.6-2.4); Potassium 4.2 mEq/L (3.5-5.1)
[2025-04-09 09:51] LABS: Glucose Level 415.0 mg/dL (74-106)
[2025-04-09] MEDS: INSULIN GLARGINE 100 UNIT/ML SQ ONE ×2 (10:17→14:42)
[2025-04-09] MEDS: INSULIN REGULAR (HUMAN) 100 UNIT/ML SQ SCH (14:42)
--- NOTE | 2025-04-09 15:20 | P.PN ---
Subjective Date of Service: 04/09/25 Chief Complaint: right proximal humerus fracture Patient is complaining of uncontrolled pain. Blood sugar readings also severely elevated. No recorded fever. Physical Examination - Vital Signs Temperature: 98.7 F Blood Pressure: 124/39 Pulse: 83 Respirations: 16 Pulse Ox (%): 98 Assessment And Plan - Plan Physical examination General: Alert and oriented x 3, NAD, HEENT: Conjunctiva not pale, anicteric sclera Neck: Supple, no elevated JVD Heart: Heart sounds 1 and 2 normal, regular rhythm, normal rate, no pedal edema Lungs: Clear to auscultation bilaterally, adequate breath sounds bilaterally, no rhonchi or crackles. Abdomen: Soft, mildly distended, nontender, normal bowel sounds. Extremities: Right shoulder tenderness. Skin: Normal skin turgor, no rash, no nodules or ulcers. Neuro: No focal motor deficit. Normal speech. Psychiatry: Normal mood, no agitation. Vitals Reviewed Problem list Right proximal humerus fracture Left fractured elbow s/p cast Frequent falls Lethargic Diabetes mellitus with hyperglycemia FRANKIE Liver cirrhosis Thrombocytopenia Positive tox screen Assessment and Plan Right proximal humerus fracture Right arm swelling Left fractured elbow s/p cast Frequent falls Lethargic -Dr. Vargas consulted, no surgical intervention, sling and physical therapy recommended Continue analgesics Continue PT Patient and spouse agreed to go to facility for rehab Gentle IVF Continue PT. right upper extremity Venous ultrasound to r/o DVT Diabetes mellitus with hyperglycemia A1C 8.8 Patient takes Semglee 45 units daily at home. Blood sugar readings severely elevated however given the fact the patient has decreased oral intake we will manage her blood sugar with Semglee 30 units daily and titrate Continue accucheck with SSI FRANKIE Resolved with IV hydration Continue to monitor renal function Liver cirrhosis Thrombocytopenia Tbili 1.5, Direct bilirubin 0.7 Ammonia 52 Heparin/lovenox on hold. Titrate lactulose Positive tox screen for benzodiazepine and opioid. Patient is on oxycodone and hydromorphone for acute pain DVT ppx: SCD Full code
--- NOTE | 2025-04-09 20:56 | PN ---
I see her today and she is in her room with her and is somewhat less sedated today, however, does appear to have some sedation, but she is able to communicate and her is there today to help. On physical examination today, she is lying in bed. She does have a sling. She is complaining of pain related to her right upper extremity with continued swelling and bruising. We discussed with the family that she does have a cast on her left upper extremity. They were not able to tell me the name of the physician who is treating her for that. Says that she injured her elbow as well as her wrist 4 weeks ago. She has a long-arm cast for both of these injuries. Family states that her wrist appears to be doing well. However, her elbow does not appear to be healing properly or at least as expected. So, she was placed back into a cast prior to this most recent fall. Their physician is in [place] and they apparently have a good relationship there. I discussed with the patient and family that given the degree of displacement and location of the fracture, all of the patient's medical issues, we would normally treat this nonoperatively. However, having a left upper extremity, which is essentially not that useful for functional activities plan may be different for her. I do not really know that there is a reason that she should stay in the hospital other for personal care and safety issues and she is definitely able to follow up with me for her right shoulder as I have seen her, but perhaps it would be better for her to continue her treatment of her left upper extremities with her other physician. I think there would not be a problem with the other physician taking over care of the right shoulder. They state they understand things as presented at this time and they will continue nonoperative management. /ANITA Voice ID: [id number] Report ID: [id number] KISHAN
[2025-04-10 07:55] LABS: Absolute Lymphocytes (CBC) 1.3 K/uL (0.7-4.9); Hematocrit 30.4 % (36.0-45.0); Hemoglobin 10.4 g/dL (12.0-15.0); MCH 32.6 pg (27.0-35.0); MCHC 34.3 g/dL (32.0-36.0); MCV 94.9 fL (80-100); MPV 9.2 fL (7.6-11.3); Nucleated RBC Absolute Count 0.0 (0-0); Nucleated Red Blood Cells % 0.1 % (0-0); RBC Red Blood Cell Count 3.20 M/uL (3.86-4.86); White Blood Count 5.00 thou/uL (4.3-10.9)
[2025-04-10 08:21] LABS: Anion Gap 9.2 mEq/L (5.0-15.0); BUN Blood Urea Nitrogen 13.0 mg/dL (7-18); Magnesium 1.6 mg/dL (1.6-2.4); Potassium 4.2 mEq/L (3.5-5.1)
[2025-04-10 08:24] LABS: Glucose Level 449.0 mg/dL (74-106)
[2025-04-10] MEDS: INSULIN REGULAR (HUMAN) 100 UNIT/ML SQ SCH ×2 (08:44→16:20)
[2025-04-10] MEDS: INSULIN GLARGINE 100 UNIT/ML SQ SCH ×2 (08:45→20:34)
[2025-04-10 09:18] LABS: White Blood Cell Scan OK (OK)
[2025-04-10 09:19] LABS: Blood Morphology Comment NOT SEEN (NOT SEEN)
--- NOTE | 2025-04-10 11:41 | P.PN ---
Date of Service: 04/10/25 Subjective: reports continues in pain states not getting any sleep however at times noted to be difficult to arouse after pain medications Physical Exam: Gen: Alert, Oriented, NAD CV: Regular rate and rhythm, no edema Pulm: Nonlabored respirations on room air, clear bilaterally Abdomen: Soft, nontender, nondistended Integumentary: No rashes L arm in cast Problem list Right proximal humerus fracture Left fractured elbow s/p cast Right upper extremity swelling Frequent falls IDDM2 with hyperglycemia FRANKIE, resolved Liver cirrhosis Thrombocytopenia Right proximal humerus fracture Left fractured elbow s/p cast Right upper extremity swelling Frequent falls presented to the ED after sustaining a mechanical fall. She is also noted to present with cast to her left arm for elbow fracture after a recent fall ~[address] chest/abdomen noted Fracture deformity of the proximal right humerus, impacted fracture distal left radius, moderate-large stool burden, liver cirrhosis Venous ultrasound was negative for DVT in right upper extremity. Tox screen was positive for both benzos and opioids. Patient is on oxycodone and hydromorphone at home for acute pain. Suspect polypharmacy could be contributing to falls. Dr. Vargas, ortho consulted and recommended medical management with sling, physical therapy, and pain control. No indications to warrant surgical intervention. Continue PT, pain control social service manager consulted for possible SNF IDDM2 with hyperglycemia increase semglee to 30u daily; titrate as needed a1c 8.8 FRANKIE, resolved continue to monitor renal function stable Liver cirrhosis Thrombocytopenia Tbili 1.5, Direct bilirubin 0.7 Ammonia 65 Heparin/lovenox on hold. Titrate lactulose Code: Full Dispo: Home with HH vs SNF
[2025-04-10] MEDS: MAGNESIUM SULFATE 1 gm IVPB 1 GM/100 ML BAG IV ONE (12:09)
[2025-04-10] MEDS: INSULIN GLARGINE 100 UNIT/ML SQ ONE (13:24)
[2025-04-10] MEDS: INSULIN LISPRO 100 UNIT/1 ML SQ SCH (17:37)
[2025-04-10] MEDS: HYDRALAZINE HCL 20 MG/ML VIAL IV PRN (20:17)
[2025-04-10] MEDS: HYDROCODONE/APAP 10/325 TAB PO PRN (20:18)
[2025-04-10] MEDS: HYDROMORPHONE HCL 0.5 MG/0.5 ML INJ IV PRN (22:25)
[2025-04-11] MEDS: NALOXEGOL OXALATE 12.5 MG TABLET PO SCH (08:48)
[2025-04-11 09:51] LABS: Absolute Lymphocytes (CBC) 1.3 K/uL (0.7-4.9); Hematocrit 33.5 % (36.0-45.0); Hemoglobin 11.7 g/dL (12.0-15.0); MCH 32.9 pg (27.0-35.0); MCHC 34.9 g/dL (32.0-36.0); MCV 94.2 fL (80-100); MPV 9.3 fL (7.6-11.3); Nucleated RBC Absolute Count 0.0 (0-0); Nucleated Red Blood Cells % 0.0 % (0-0); RBC Red Blood Cell Count 3.55 M/uL (3.86-4.86); White Blood Count 5.20 thou/uL (4.3-10.9)
[2025-04-11 10:16] LABS: Anion Gap 8.1 mEq/L (5.0-15.0); BUN Blood Urea Nitrogen 13.0 mg/dL (7-18); Glucose Level 365.0 mg/dL (74-106); Magnesium 1.7 mg/dL (1.6-2.4); Potassium 4.1 mEq/L (3.5-5.1)
--- NOTE | 2025-04-11 11:20 | P.PN ---
Date of Service: 04/11/25 Subjective: tired, lethargic most of the night ambulated to bathroom family updated at bedside want to pursue home health1 Physical Exam: Gen: Alert, Oriented, NAD CV: Regular rate and rhythm, no edema Pulm: Nonlabored respirations on room air, clear bilaterally Abdomen: Soft, nontender, nondistended Integumentary: No rashes L arm in cast, RUE in sling Problem list Right proximal humerus fracture Left fractured elbow s/p cast Right upper extremity swelling Frequent falls IDDM2 with hyperglycemia FRANKIE, resolved Liver cirrhosis Thrombocytopenia Right proximal humerus fracture Left fractured elbow s/p cast Right upper extremity swelling Frequent falls presented to the ED after sustaining a mechanical fall. She is also noted to present with cast to her left arm for elbow fracture after a recent fall ~[address] chest/abdomen noted Fracture deformity of the proximal right humerus, impacted fracture distal left radius, moderate-large stool burden, liver cirrhosis Venous ultrasound was negative for DVT in right upper extremity. Tox screen was positive for both benzos and opioids. Patient is on oxycodone and hydromorphone at home for acute pain. Suspect polypharmacy could be contributing to falls. Dr. Vargas, ortho consulted and recommended medical management with sling, physical therapy, and pain control. No indications to warrant surgical intervention. Continue PT/OT Pain control IDDM2 with hyperglycemia a1c 8.8 semglee increased to 45u BID Lispro 15u TID added 04/10 FRANKIE, resolved continue to monitor renal function stable Liver cirrhosis Thrombocytopenia Tbili 1.5, Direct bilirubin 0.7 Ammonia 65 Heparin/lovenox on hold. Titrate lactulose Code: Full Dispo: Home with HH v social service assistant consulted pending PO pain control better glucose control Time Spent Managing Pts Care (In Minutes): 45
[2025-04-12 08:34] LABS: Absolute Lymphocytes (CBC) 1.6 K/uL (0.7-4.9); Hematocrit 29.4 % (36.0-45.0); Hemoglobin 10.4 g/dL (12.0-15.0); MCH 33.5 pg (27.0-35.0); MCHC 35.4 g/dL (32.0-36.0); MCV 94.5 fL (80-100); MPV 9.6 fL (7.6-11.3); Nucleated RBC Absolute Count 0.0 (0-0); Nucleated Red Blood Cells % 0.1 % (0-0); RBC Red Blood Cell Count 3.11 M/uL (3.86-4.86); White Blood Count 6.80 thou/uL (4.3-10.9)
[2025-04-12 09:27] LABS: Blood Morphology Comment NOTED (NOT SEEN); White Blood Cell Scan OK (OK)
[2025-04-12 09:28] LABS: Anisocytosis SLIGHT; Basophilic Stippling 1+; Macrocytosis SLIGHT
--- NOTE | 2025-04-12 09:35 | P.PN ---
Date of Service: 04/12/25 Subjective: reports some intermittent pain, worsened with movement otherwise no new issues more awake/alert vitals stable Physical Exam: Gen: Alert, Oriented, NAD CV: Regular rate and rhythm, no edema Pulm: Nonlabored respirations on room air, clear bilaterally Abdomen: Soft, nontender, nondistended Integumentary: No rashes L arm in cast, RUE in sling Problem list Right proximal humerus fracture Left fractured elbow s/p cast Right upper extremity swelling Frequent falls IDDM2 with hyperglycemia FRANKIE, resolved Liver cirrhosis Thrombocytopenia Right proximal humerus fracture Left fractured elbow s/p cast Right upper extremity swelling Frequent falls presented to the ED after sustaining a mechanical fall. She is also noted to present with cast to her left arm for elbow fracture after a recent fall ~[address] chest/abdomen noted Fracture deformity of the proximal right humerus, impacted fracture distal left radius, moderate-large stool burden, liver cirrhosis Venous ultrasound was negative for DVT in right upper extremity. Tox screen was positive for both benzos and opioids. Patient is on oxycodone and hydromorphone at home for acute pain. Suspect polypharmacy could be contributing to falls. Dr. Vargas, ortho consulted and recommended medical management with sling, physical therapy, and pain control. No indications to warrant surgical intervention. Continue PT/OT Pain control DC dilaudid and increase [place] to q4h today working on finding oral regimen that works in prep for dc IDDM2 with hyperglycemia a1c 8.8 semglee increased to 45u BID Lispro 15u TID added 04/10 despite significant increase in insulin, glucose levels trending up, suspect eating outside food / not sticking to diabetic diet. at one point she was eating outside food yesterday FRANKIE, resolved continue to monitor renal function stable Liver cirrhosis Thrombocytopenia Tbili 1.5, Direct bilirubin 0.7 Ammonia 65 Heparin/lovenox on hold. Titrate lactulose Code: Full Dispo: Home with health care social worker consulted pending PO pain control and better glucose control Time Spent Managing Pts Care (In Minutes): 45
[2025-04-12] MEDS: HYDROCODONE/APAP 10/325 TAB PO PRN (09:59)
[2025-04-12] MEDS: IBUPROFEN 600 MG TAB PO ONE (10:00)
[2025-04-12 10:52] LABS: Anion Gap 7.9 mEq/L (5.0-15.0); BUN Blood Urea Nitrogen 19.0 mg/dL (7-18); Glucose Level 378.0 mg/dL (74-106); Magnesium 1.7 mg/dL (1.6-2.4); Potassium 3.9 mEq/L (3.5-5.1)
[2025-04-12] MEDS: INSULIN LISPRO 100 UNIT/1 ML SQ SCH (12:00)
[2025-04-12] MEDS: POTASSIUM CL SA 10 MEQ TAB PO ONE (12:57)
[2025-04-12] MEDS: MAGNESIUM SULFATE 1 gm IVPB 1 GM/100 ML BAG IV ONE (12:57)
[2025-04-12] MEDS: ALPRAZOLAM 0.5 MG TABLET PO PRN (22:47)
--- NOTE | 2025-04-13 10:17 | P.PN ---
Date of Service: 04/13/25 Subjective: feeling slightly better today ambulated around the floor yesterday pain more controlled. Hasn't needed IV pain meds in > 24 hrs no new issues overnight family updated at bedside Physical Exam: Gen: Alert, Oriented, NAD CV: Regular rate and rhythm, no edema Pulm: Nonlabored respirations on room air, clear bilaterally Abdomen: Soft, nontender, nondistended Integumentary: No rashes L arm in cast, RUE in sling Problem list Right proximal humerus fracture Left fractured elbow s/p cast Right upper extremity swelling Frequent falls IDDM2 with hyperglycemia FRANKIE, resolved Liver cirrhosis Thrombocytopenia Right proximal humerus fracture Left fractured elbow s/p cast Right upper extremity swelling Frequent falls presented to the ED after sustaining a mechanical fall. She is also noted to present with cast to her left arm for elbow fracture after a recent fall ~[address] chest/abdomen noted Fracture deformity of the proximal right humerus, impacted fracture distal left radius, moderate-large stool burden, liver cirrhosis Venous ultrasound was negative for DVT in right upper extremity. Tox screen was positive for both benzos and opioids. Patient is on oxycodone and hydromorphone at home for acute pain. Suspect polypharmacy could be contributing to falls. Dr. Vargas, ortho consulted and recommended medical management with sling, physical therapy, and pain control. No indications to warrant surgical intervention. Continue PT/OT Pain well controlled on oral [place] 10/325 after adjustments. Hasn't needed IV pain meds Strength slowly improving. Ambulated around the floor yesterday IDDM2 with hyperglycemia a1c 8.8 semglee increased to 45u BID Lispro 15u TID added 04/10 despite significant increase in insulin, glucose levels trending up, suspect eating outside food / not sticking to diabetic diet. at one point she was eating outside food FRANKIE, resolved continue to monitor renal function stable Liver cirrhosis Thrombocytopenia Tbili 1.5, Direct bilirubin 0.7 Ammonia 65 Heparin/lovenox on hold. Titrate lactulose Code: Full Dispo: Home with HH Anticipate possible discharge tomorrow morning if glc stable and pain well controlled Time Spent Managing Pts Care (In Minutes): 45
[2025-04-14] MEDS: MORPHINE 4 MG/ML SYR IV ONE (05:19)
[2025-04-14 12:25] VITALS: BP 181/87; TEMP 97.5
--- NOTE | 2025-04-14 12:39 | P.PN ---
Date of Service: 04/14/25 Subjective: reports some increased pain overnight needed morphine earlier this morning otherwise doing okay Physical Exam: Gen: Alert, Oriented, NAD CV: Regular rate and rhythm, no edema Pulm: Nonlabored respirations on room air, clear bilaterally Abdomen: Soft, nontender, nondistended Integumentary: No rashes L arm in cast, RUE in sling Problem list Right proximal humerus fracture Left fractured elbow s/p cast Right upper extremity swelling Frequent falls IDDM2 with hyperglycemia FRANKIE, resolved Liver cirrhosis Thrombocytopenia Right proximal humerus fracture Left fractured elbow s/p cast Right upper extremity swelling Frequent falls presented to the ED after sustaining a mechanical fall. She is also noted to present with cast to her left arm for elbow fracture after a recent fall ~[address] chest/abdomen noted Fracture deformity of the proximal right humerus, impacted fracture distal left radius, moderate-large stool burden, liver cirrhosis Venous ultrasound was negative for DVT in right upper extremity. Tox screen was positive for both benzos and opioids. Patient is on oxycodone and hydromorphone at home for acute pain. Suspect polypharmacy could be contributing to falls. Dr. Vargas, ortho consulted and recommended medical management with sling, physical therapy, and pain control. No indications to warrant surgical intervention. Continue PT/OT. Strength slowly improving. Reports some increased pain overnight/this morning. s/p 4mg IV morphine x1 this morning IDDM2 with hyperglycemia a1c 8.8 semglee increased to 45u BID Lispro 15u TID added 04/10 despite significant increase in insulin, glucose levels trending up, suspect eating outside food / not sticking to diabetic diet. at one point she was eating outside food glc improving/stable. FRANKIE, resolved continue to monitor renal function stable Liver cirrhosis Thrombocytopenia Tbili 1.5, Direct bilirubin 0.7 Ammonia 65 Heparin/lovenox on hold. Titrate lactulose Code: Full Dispo: Home with HH pending pain control Time Spent Managing Pts Care (In Minutes): 45
--- NOTE | 2025-04-15 12:26 | P.DS ---
Admission Date: 04/06/25 Discharge Date: 04/14/25 Disposition: DC HOME/HOME HEALTH CARE Discharge Condition: GOOD Reason for Admission: right proximal humerus fracture Consultations: Ortho - Dr. Vargas Brief History of Present Illness: 64 yo F, PMH: HTN, anxiety, cirrhosis, diabetesIDDM, fibromyalgia, hypertension, hypothyroidism Patient who presents to the ED status post mechanical fall yesterday at an unknown time. Patient presents with cast to left arm for elbow fracture x 2 weeks ago. On evaluation, Patient is lethargic, tox screen positive for benzos and opioids, and was well as fentanyl given for pain medication in the ED and EMS gave ketamine. She was very lethargic and unable to give ROS Right humerus x-ray reports "Proximal humeral fracture." CT head and cervical spine reports "DISCS/SPINAL CANAL/NEURAL FORAMINA: Minimal rotational subluxation of C1 on C2 likely positional. Mild degenerative changes throughout the cervical spine. Disc space narrowing greatest at C6-7. Mild mult ilevel facet arthritis. Small central disc protrusion suspected at C4-5 contributing to minimal central canal narrowing." CT abdomen pelvis without contrast reports "1. Mild areas of dependent and sub segmental atelectasis in each lung most notable towards the bases. 2. Cholelithiasis. 3. Moderate-large diffuse colonic stool burden. 4. Localized area of luminal narrowing and thickening of the ascending colon. This may be related to underdistention. A neoplastic process is not excluded. Correlation with colonoscopy or short-term. 5. Impacted fracture deformity of the distal left radius somewhat age indeterminate but possibly acute or subacute. 6. Fracture deformity of the proximal right humerus. 7. Minimal subcutaneous fat stranding in the bilateral anterior abdominal wall. This may be related to injection sites or due to ill-defined contusions. 8. Other chronic appearing findings. Recommend short-term follow-up if symptoms persist." Saba will be admitted to hospitalist service for further evaluation and treatment. Hospital Course: Problem list Right proximal humerus fracture Left fractured elbow s/p cast Right upper extremity swelling Frequent falls IDDM2 with hyperglycemia FRANKIE, resolved Liver cirrhosis Thrombocytopenia Physician discharge instructions: Patient presented to the ED after sustaining a mechanical fall and was found to have right proximal humerus fracture. She is also noted to present with cast to her left arm for elbow fracture after a recent fall ~2 weeks ago. Suspect polypharmacy could be contributing to falls. Tox screen was positive for both benzos and opioids. Patient is on oxycodone and hydromorphone at home for acute pain. CT chest/abdomen with multiple findings as noted below. Venous ultrasound was negative for DVT in right upper extremity. Patient was evaluated by Dr. Vargas, ortho who recommended medical management with sling, physical therapy, and pain control. No indications to warrant surgical intervention. She worked with physical therapy throughout her stay who felt that she would benefit from short term [facility] facility to further improve strength and endurance to return to prior level of functioning before returning home. However patient and family preferred to go home with home health. She continued to work with physical therapy while attempting to stabilize her glucose levels and felt like she had improved enough to stay at home safely. On day of discharge she was able to ambulate around the floor multiple times with stand by assistance. Patient was feeling better, strength improving, pain more controlled, and was deemed stable for discharge. Her glucose levels were noted to be significantly elevated throughout hospitalization. A1c was 8.8. Her home insulin regimen was restarted and she had better control. Medications: [place] 10mg every 4-6 hours as needed for pain. continue other home medications as previously prescribed. Follow up: PCP 3-5 days Please call to schedule / confirm appointments Physical Exam: Gen: Alert, Oriented, NAD CV: Regular rate and rhythm, no edema Pulm: Nonlabored respirations on room air, clear bilaterally Abdomen: Soft, nontender, nondistended L arm in cast, RUE in sling Vital Signs/Physical Exam: Temp Pulse Resp BP Pulse Ox 97.5 F 95 H 18 181/87 H 98 04/14/25 12:00 04/14/25 12:00 04/14/25 15:19 04/14/25 12:00 04/14/25 15:19 Laboratory Data at Discharge: WBC Cancelled 04/13/25 05:00 Hgb Cancelled 04/13/25 05:00 Hct Cancelled 04/13/25 05:00 Plt Count Cancelled 04/13/25 05:00 PT 14.4 SECONDS (10-13.0) H 04/06/25 01:03 INR 1.28 04/06/25 01:03 Sodium Cancelled 04/13/25 05:00 Potassium Cancelled 04/13/25 05:00 BUN Cancelled 04/13/25 05:00 Creatinine Cancelled 04/13/25 05:00 Glucose Cancelled 04/13/25 05:00 Phosphorus 3.3 mg/dL (2.5-4.9) 04/11/25 09:42 Magnesium Cancelled 04/13/25 05:00 Total Bilirubin Cancelled 04/13/25 05:00 AST Cancelled 04/13/25 05:00 ALT Cancelled 04/13/25 05:00 Alkaline Phosphatase Cancelled 04/13/25 05:00 Triglycerides Cancelled 04/07/25 09:00 Cholesterol Cancelled 04/07/25 09:00 HDL Cholesterol Cancelled 04/07/25 09:00 Cholesterol/HDL Ratio Cancelled 04/07/25 09:00 Home Medications: ALPRAZolam [Xanax*] 0.5 mg PO PRN 06/09/15 Atorvastatin Calcium [Lipitor] 80 mg PO DAILY 06/09/15 Ergocalciferol (Vitamin D2) [Vitamin D 50,000 Unit Cap] 50,000 unit PO EVERY 7TH DAY 06/09/15 Glimepiride [Amaryl] 4 mg PO DAILY 06/09/15 Hydrocodone Bitartrate [Hysingla ER] 60 mg PO DAILY 06/09/15 Hydromorphone HCl [Dilaudid] 8 mg PO Q4HP PRN 06/09/15 Levothyroxine [Synthroid*] 88 mcg PO [id number] 06/09/15 Lisinopril/Hydrochlorothiazide [Zestoretic 20-25 mg Tablet] 1 each PO DAILY 06/09/15 Naloxegol Oxalate [Movantik] 25 mg PO DAILY 06/09/15 [place]-3 Fatty Acids [Fish Oil] 300 mg PO DAILY 06/09/15 Potassium Chloride [K-Dur] 20 meq PO DAILY 06/09/15 Sitagliptin Phosphate [Januvia*] 100 tab PO DAILY 06/09/15 diazePAM [Diazepam] 5 mg PO PRN 06/09/15 Insulin Aspart [Insulin Aspart Flexpen] 100 unit SQ BIDWM 04/10/25 Insulin Glargine,Hum.rec.anlog [Insulin Glargine Solostar] 300 unit SQ BID 04/10/25 Hydrocodone 10/APAP 325 [[place] 10/325*] 1 tab PO Q6H PRN #20 tab 04/14/25 New Medications: Hydrocodone 10/APAP 325 [[place] 10/325*] 1 tab PO Q6H PRN #20 tab PRN Reason: Pain Scale 8-10 (Severe) Physician Discharge Instructions: Physician discharge instructions: Patient presented to the ED after sustaining a mechanical fall and was found to have right proximal humerus fracture. She is also noted to present with cast to her left arm for elbow fracture after a recent fall ~2 weeks ago. Suspect polypharmacy could be contributing to falls. Tox screen was positive for both benzos and opioids. Patient is on oxycodone and hydromorphone at home for acute pain. CT chest/abdomen with multiple findings as noted below. Venous ultrasound was negative for DVT in right upper extremity. Patient was evaluated by linda Jones who recommended medical management with sling, physical therapy, and pain control. No indications to warrant surgical intervention. She worked with physical therapy throughout her stay who felt that she would benefit from short term [facility] facility to further improve strength and endurance to return to prior level of functioning before returning home. However patient and family preferred to go home with home health. She continued to work with physical therapy while attempting to stabilize her glucose levels and felt like she had improved enough to stay at home safely. On day of discharge she was able to ambulate around the floor multiple times with stand by assistance. Patient was feeling better, strength improving, pain more controlled, and was deemed stable for discharge. Her glucose levels were noted to be significantly elevated throughout hospitalization. A1c was 8.8. Her home insulin regimen was restarted and she had better control. Medications: [place] 10mg every 4-6 hours as needed for paiin. continue other home medications as previously prescribed. Follow up: PCP 3-5 days Please call to schedule / confirm appointments Followup: Vanesa Isaac MD [Primary Care Provider] - 1 Week Time spent managing pt's care (in minutes): 45
== END 2025-04-14 15:22 | disposition home health service (06) | DRG 563 ==
LOC: ER 00:19 → 2ND 08:14
PROVIDERS: ADMIT Internal Medicine; ATTEND Hospitalist
PROC: 02HV33Z Insertion of Infusion Device into Superior Vena Cava, Percutaneous Approach (ICD-10-PCS; principal; 2025-04-06)
DX: S42.201A Unspecified fracture of upper end of right humerus, initial encounter for closed fracture (principal); N17.9 Acute kidney failure, unspecified; M79.7 Fibromyalgia; E03.9 Hypothyroidism, unspecified; K74.60 Unspecified cirrhosis of liver; D69.6 Thrombocytopenia, unspecified; I10 Essential (primary) hypertension; E11.65 Type 2 diabetes mellitus with hyperglycemia; S42.402D Unspecified fracture of lower end of left humerus, subsequent encounter for fracture with routine healing; R29.6 Repeated falls; Z91.81 History of falling; Z88.8 Allergy status to other drugs, medicaments and biological substances; Z79.52 Long term (current) use of systemic steroids; Z79.84 Long term (current) use of oral hypoglycemic drugs; Z79.890 Hormone replacement therapy; Z90.710 Acquired absence of both cervix and uterus; Z79.899 Other long term (current) drug therapy; W01.10XA Fall on same level from slipping, tripping and stumbling with subsequent striking against unspecified object, initial encounter; Y93.9 Activity, unspecified; Y92.017 Garden or yard in single-family (private) house as the place of occurrence of the external cause; Y99.9 Unspecified external cause status
CPT/HCPCS: 36415; 70450; 71045; 71250; 72125; 74176; 80048; 80061; 80076; 80307; 81001; 82077; 82140; 82805; 82947; 83036; 83735; 83880; 84100; 84484; 85025; 85610; 93005; 93971; 96361; 96372; 96374; 97110; 97116; 97161; 97165; 97530; 99285; J0360; J1171; J1815; J2003; J2270; J3010; J3475; J7030